=== PATIENT | female | born 1990 | race Caucasian/White ===

== ENCOUNTER 2023-09-07 21:10 | Emergency (ER) | payer MEDICAID, SELFPAY ==
[2023-09-07 21:13] VITALS: BP 168/80; PULSE 72; RESP 16; TEMP 36.6; O2SAT 99; BMI 35.5
--- NOTE | 2023-09-07 21:52 | XR_ITS ---
The [address] [address] Patient Name: CINDA FRANCES MRN: [id number] date: 1990 Sex: F Assigned Patient Location: ER Current Patient Location: ER Accession/Order Number: [id number] Exam Date: 09/07/2023 22:03 Report Date: 09/07/2023 22:53 At the request of: DAGO GAO Procedure: XR hand RT min 3V EXAM: XR hand RT min 3V HISTORY: injury middle finger COMPARISON: None. TECHNIQUE: 3 views of the right hand were obtained. FINDINGS: No acute fracture or dislocation is seen. The joint spaces are preserved. No definite radiopaque foreign body is seen. XR/XR hand RT min 3V IMPRESSION: 1. No acute osseous abnormality or radiopaque foreign body about the right hand is seen. Electronically authenticated by: Lisa SUAREZ Date: 09/07/2023 22:53
--- NOTE | 2023-09-07 21:53 | ED_ITS ---
HPI - Extremity Injury (Upper) General Chief Complaint: Extremity Injury, Upper Stated Complaint: Upper Injury right hand Time Seen by Provider: 09/07/23 21:51 Source: patient Mode of arrival: walk-in Limitations: no limitations History of Present Illness HPI narrative: patient states she was trying to close a window that was frozen and closed it onto the tip of her right middle finger. Bleeding at home and has stop here. Has pain of the finger. Related Data Home Medications Medication Instructions Recorded Confirmed No Known Home Medications 09/07/23 09/07/23 Allergies Allergy/AdvReac Type Severity Reaction Status Date / Time doxycycline Allergy Severe Anaphylaxis Verified 09/07/23 21:17 Review of Systems ROS Status of ROS 10 or more systems reviewed and unremark able except as noted in history and below Exam Constitutional Vital Signs, click to edit/add: Last Vital Signs Temp 98 F 09/07/23 21:13 Pulse 72 09/07/23 21:13 Resp 16 09/07/23 21:13 BP 168/80 H 09/07/23 21:13 Pulse Ox 99 09/07/23 21:13 O2 Del Method Room Air 09/07/23 21:13 Common normals: no apparent distress, average body habitus, oriented x3, no limitations, healthy appearing, alert and well nourished Eye Common normals: EOMs intact bilaterally and conjunctivae normal Respiratory Common normals: normal respiratory effort, no retractions and no use of accessory muscles Extremity Other: tip of right middle finger just anterior to the nail with small cut. no active bleeding. No obvious swelling or deformity. Nail intact Neuro Common normals: oriented x3, CN's II-XII intact bilaterally, moves all extremities, no focal motor deficits and no sensory deficits noted Psych Appearance: grossly normal Course Vital Signs Vital signs: Vital Signs Temperature 98 F 09/07/23 21:13 Pulse Rate 72 09/07/23 21:13 Respiratory Rate 16 09/07/23 21:13 Blood Pressure 168/80 H 09/07/23 21:13 Pulse Oximetry 99 09/07/23 21:13 Oxygen Delivery Method Room Air 09/07/23 21:13 Temperature 98 F 09/07/23 21:13 Pulse Rate 72 09/07/23 21:13 Respiratory Rate 16 09/07/23 21:13 Blood Pressure 168/80 H 09/07/23 21:13 Pulse Oximetry 99 09/07/23 21:13 Oxygen Delivery Method Room Air 09/07/23 21:13 MDM - Extremity Injury (Upper) MDM Narrative Medical decision making narrative: patient closed right tip of middle finger in window sustaining small cut at tip of the finger. Nail and nail bed intact. xray of the finger neg for fracture. finger dressed and patient discharged home Imaging Data Chest x-ray: Radiologist's impression: ITS Impressions Hand X-Ray 09/07/23 21:52 IMPRESSION: 1. No acute osseous abnormality or radiopaque foreign body about the right hand is seen. Electronically authenticated by: Lisa SUAREZ Date: 09/07/2023 22:53 Discharge Plan Discharge Chief Complaint: Extremity Injury, Upper Clinical Impression: Contusion of finger Patient Disposition: Home, Self-Care Prescriptions / Home Meds: No Action No Known Home Medications Instructions: Contusion in Adults (ED) Stand Alone Forms: Portal Instructions Referrals: Physician,Non-Staff, MD [Primary Care Provider] - 1 week
== END 2023-09-07 23:19 | disposition home or self-care (01) ==
PROVIDERS: Emergency Provider Internal Medicine
DX: S60.131A Contusion of right middle finger with damage to nail, initial encounter (principal); W23.0XXA Caught, crushed, jammed, or pinched between moving objects, initial encounter
CPT/HCPCS: 73130; 99283

== ENCOUNTER 2024-10-18 17:06 | Emergency (ER) | payer OTHER, SELFPAY ==
[2024-10-18 17:11] VITALS: BP 177/115; PULSE 78; TEMP 36.7; O2SAT 98; BMI 34.8
--- OUTSIDE RECORDS SUMMARY | 2024-10-18 17:30 | XMS_ITS | CCD ---
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 Name Role Phone Gurinder Cortes Primary Care Provider Zachery Rajesh DEGROOT Primary Care Provider LUZMA ALLEN Attending Unavailable ZACHERY, MUHAMID Primary Care Unavailable Jose Matute Unavailable DO Gurinder Cortes Primary Care Provider [phone] MD Jose Matute Attending Provider ANTHONY FOREMAN Referring Unavailable ZACHERY, MUHAMID Primary Care Unavailable ZACHERY, MUHAMID Primary Care Unavailable ANTHONY FOREMAN Admitting Unavailable ANTHONY FOREMAN Attending Unavailable NON STAFF Primary Care Unavailable Jose Matute Admitting Unavailable Jose Matute Attending Unavailable Jose Matute Attending Unavailable Gurinder Cortes Primary Care Unavailable Jose Matute Admitting Unavailable ANTHONY FOREMAN Referring Unavailable ZACHERY, MUHAMID Primary Care Unavailable ZACHERY, MUHAMID Primary Care Unavailable ANTHONY FOREMAN Referring Unavailable RASHAUNRHONDA Attending Unavailable ZACHERY, MUHAMID M Referring Unavailable ZACHERY, MUHAMID M Primary Care Unavailable RHONDA RODNEY Referring Unavailable ZACHERY, MUHAMID M Primary Care Unavailable ZACHERY, MUHAMID M Primary Care Unavailable ROGERS PIERCE Attending Unavailable ROGERS PIERCE Attending Unavailable ROGERS PIERCE Referring Unavailable ZACHERY, MUHAMID M Primary Care Unavailable RASHAUN, RHONDA Referring Unavailable ZACHERY, MUHAMID M Primary Care Unavailable RICHELLE MAYO Referring Unavailable ZACHERY, MUHAMID M Primary Care Unavailable ZACHERY, MUHAMID M Primary Care Unavailable VICKEY SINGLETON Attending Unavailable Zachery Rajesh SOUZA Primary Care Provider Allergies Allergy Classification Reported Allergen(s) Allergy Type Date of Onset Reaction(s) Facility (20 sources) Doxycycline; Translations: [DOXYCYCLINE] Drug Allergy 6 Anaphylaxis [place], [place] (17 sources) macadamia nut allergenic extract Drug Allergy 7 Shortness Of Breath [place], [place] (6 sources) Cashew nut Propensity to adverse reactions anaphylaxis [employer] Other (9 sources) cashew nut allergenic extract Drug Allergy 1 Anaphylaxis, Rash [facility] (3 sources) cashew nut allergenic extract; Translations: [CASHEW NUT] Drug Allergy 1 [facility] Repository (1 source) Doxycycline Drug Allergy 3 [facility] Repository (9 sources) tree nut, unspecified; Translations: [TREE NUTS] Propensity to adverse reactions to food (disorder) 3 Itching [facility] Repository NEGATED: Highlighted row has been ruled out! (2 sources) Other Propensity to adverse reactions 3 Itching, Other (See Comments) [facility] Work Phone: Medications Current Medications Medication Drug Class(es) Dates Sig (Normalized) Sig (Original) acetaminophen 500 mg oral tablet (8 sources) Start: 12-30-2022 take 1000 mg by mouth every six hours, then take 4000 mg by mouth every twenty-four hours 1,000 mg, Oral, EVERY 6 HOURS, First dose on [facility] 12/30/22 at 1800, Until Discontinued Maximum dose of acetaminophen is 4000 mg from all sources in 24 hours. Start: 12-30-2022 End: 01-29-2023 acetaminophen (TYLENOL) 500 MG tablet Take 2 tablets by mouth in the morning and 2 tablets at noon and 2 tablets in the evening. 180 tablet 2 12/30/2022 01/29/2023 Active Start: 12-30-2022 acetaminophen (TYLENOL) tablet 1,000 mg Start: 08-17-2021 End: 12-16-2022 take 1 tablet by mouth four times daily as needed for pain acetaminophen (TYLENOL) 500 MG tablet Take 1 tablet by mouth 4 times daily as needed for Pain 40 tablet 1 08/17/2021 12/16/2022 Discontinued (LIST CLEANUP) Start: 11-02-2019 1,000 mg, Oral , EVERY 6 HOURS PRN, Pain Mild (1-3), Pain Moderate (4-6), Fever, Fever >100.5 F (38 C), Starting 11/02/19 at 1250 Maximum dose of acetaminophen is 4000 mg from all sources in 24 hours. Please inform if temp >100.4 F (38.0 C). May alternate with Motrin for pain management. Start: 10-31-2019 End: 10-31-2019 acetaminophen (TYLENOL) tabl et 1,000 mg Acetaminophen / HYDROcodone (1 source) Opioid Agonist Start: 08-17-2021 End: 08-17-2021 HYDROcodone-acetaminophen (NORCO) 5-325 MG per tablet 1 tablet Acetaminophen / oxyCODONE (3 sources) Opioid Agonist Start: 09-26-2020 End: 09-26-2020 oxyCODONE-acetaminophen (PERCOCET) 5-325 MG per tablet 1 tablet Start: 11-02-2019 End: 11-07-2019 take 1 tablet by mouth every six hours as needed for pain, then take 1 tablet by mouth as needed for pain oxyCODONE-acetaminophen (PERCOCET) 5-325 MG per tablet Indications: S/P repeat low transverse Take 1 tablet by mouth every 6 hours as needed for Pain for up to 5 days. Intended supply: 5 days. Take lowest dose possible to manage pain 20 tablet 0 11/02/2019 11/07/2019 Active Start: 11-02-2019 oxyCODONE-acet aminophen (PERCOCET) 5-325 MG per tablet 1 tablet biotin 10 mg disintegrating oral tablet (1 source) take 3 tablets by mouth once daily Biotin 56132 MCG TBDP Take 3 tablets by mouth daily 0 Active bisacodyl 10 mg rectal suppository (1 source) Stimulant Laxative Start: 11-01-19 20 take 10 mg rectal route once daily as needed for constipation 10 mg, Rectal, DAILY PRN, Constipation, Starting [facility] 11/01/19 at 1850, calcium chloride 0.0014 meq/ml / potassium chloride 0.004 meq/ml / sodium chloride 0.103 meq/ml / sodium lactate 0.028 meq/ml injectable solution (5 sources) Start: 12-31-19 23 lactated ringers IV soln infusion Start: 08-17-2021 lactated ringe rs infusion Start: 09-26-2020 lactated ringe rs infusion Start: 11-01-2019 Intravenous, a t 25 mL/hr, CONTINUOUS, Starting [facility] 11/01/19 at 1915 Or until spontaneous void. Start: 11-01-2019 End: 11-01-2019 lactated ringers bolus 1 ml diphenhydrAMINE hydrochloride 50 mg/ml cartridge (4 sources) Histamine-1 Receptor Antagonist Start: 08-17-2021 End: 08-17-2021 diphenhydrAMINE (BENADRYL) injection 12.5 mg Start: 09-26-2020 End: 09-26-2020 diphenhydrAMINE (BENADRYL) i njection 12.5 mg Start: 10-31-2019 End: 11-01-2019 25 mg, Intravenous, EVERY 6 HOURS PRN, Itching, Hives, Starting [facility] 11/01/19 at 1850, docusate sodium 100 mg oral capsule (2 sources) Start: 11-01-2019 End: 12-02-2019 take 1 capsule by mouth twice daily as needed for constipation docusate sodium (COLACE) 100 MG capsule Take 1 capsule by mouth 2 times daily as needed for Constipation 60 capsule 1 11/02/2019 12/02/2019 Active DULoxetine 30 mg delayed release oral capsule (6 sources) Serotonin and Norepinephrine Reuptake Inhibitor Start: 12-07-2021 take 1 capsule by mouth every twenty-four hours Cymbalta 30 MG 1 capsule Orally Once a day for 30 day(s) Nov, Active estradiol 0.1 mg/ml vaginal cream (5 sources) Estrogen Start: 05-26-2020 estradiol (ESTRACE VAGINAL) 0.1 MG/GM vaginal cream Place 1 g vaginally Twice a Week 1 Tube 3 05/26/2020 Active Start: 05-26-2020 estradiol (EST RACE VAGINAL) 0.1 MG/GM vaginal cream Place 1 g vaginally Twice a Week 1 Tube 3 05/26/2020 Active Estrogens, Conjugated ([facility]) (3 sources) Estrogen ESTROGENS CONJUG ATED PO Take by mouth 0 Active 2 ml fentaNYL 0.05 mg/ml injection (2 sources) Opioid Agonist Start: 08-17-2021 fentaNYL (SUBLIMAZE) injection 50 mcg Start: 08-17-2021 fentaNYL (SUBL IMAZE) injection 25 mcg Folic Acid (7 sources) FOLIC ACID PO Ta ke by mouth 0 Active 1 ml hydrALAZINE hydrochloride 20 mg/ml injection (1 source) Arteriolar Vasodilator Start: 08-17-2021 hydrALAZINE (APRESOLINE) injection 5 mg 1 ml HYDROmorphone hydrochloride 1 mg/ml cartridge (4 sources) Opioid Agonist Start: 08-17-2021 HYDROmorphone (DILAUDID) injection 0.5 mg Start: 09-26-2020 HYDROmorphone (DILAUDID) injection 0.25 mg Start: 09-26-2020 HYDROmorphone (DILAUDID) injection 0.5 mg HYDROmorphone (DILAUDID) injection 0.5 mg (1 source) Start: 12-30-2022 HYDROmorphone (DILAUDID) injection 0.5 mg 1 ml ketorolac tromethamine 30 mg/ml cartridge (3 sources) Nonsteroidal Anti-inflammatory Drug, Cyclooxygenase Inhibitor Start: 12-30-2022 End: 12-31-2022 30 mg, IntraVENous, EVERY 6 HOURS, 3 doses, First dose on [facility] 12/30/22 at 1600, Last dose on Tue12/31/22 at 0400 Do not administer for more than 5 days. Start: 10-13-2022 End: 10-13-2022 ketorolac (TORADOL) injectio n 30 mg Start: 11-01-2019 End: 11-02-2019 30 mg, Intravenous, EVERY 6 HOURS, First dose on [facility] 11/01/19 at 1915, For 3 doses Do not administer for more than 5 days. Do not administer with motrin/ibuprofen. labetalol hydrochloride 5 mg/ml injectable solution (3 sources) beta-Adrenergic Shalom Start: 08-17-2021 labetalol (NORMODYNE;TRANDATE) injection 5 mg Start: 10-31-2019 labetalol (NOR MODYNE) tablet 100 mg labetalol (NORMODYNE;TRANDATE) injection syringe 5 mg (1 source) Start: 09-26-2020 labetalol (NORMODYNE;TRANDATE) injection syringe 5 mg lanolin 0.5 mg/mg topical ointment (1 source) Start: 11-01-2019 Topical, EVERY 1 HOUR PRN, Dry Skin, nipple discomfort, Starting [facility] 11/01/19 at 1850, levothyroxine sodium 0.075 mg oral tablet (3 sources) l-Thyroxine levothyroxine (SYNTHROID) 75 MCG tablet Take 75 mcg by mouth 0 Active lisinopril 10 mg oral tablet (10 sources) Angiotensin Converting Enzyme Inhibitor End: 12-16-2022 take 1 tablet by mouth every twenty-four hours Lisinopril 10 MG 1 tablet Orally Once a day for 90 days Active magnesium hydroxide 80 mg/ml oral suspension (1 source) Start: 11-01-2019 take 30 mL by mouth once daily as needed for constipation 30 mL, Oral, DAILY PRN, Constipation, Starting [facility] 11/01/19 at 1850, medroxyPROGESTERone acetate 10 mg oral tablet (3 sources) Progestin Start: 06-29-2021 take 1 tablet by mouth once daily medroxyPROGESTERone (PROVERA) 10 MG tablet Take 1 tablet by mouth daily 30 tablet 3 06/29/2021 Active meloxicam 15 mg oral tablet (3 sources) Nonsteroidal Anti-inflammat ory Drug take 1 tablet by mouth once daily meloxicam (MOBIC) 15 MG tablet Take 15 mg by mouth daily 0 Active 1 ml meperidine hydrochloride 25 mg/ml cartridge (2 sources) Opioid Agonist Start: 08-17-2021 meperidine (DEMEROL) injection 12.5 mg Start: 09-26-2020 meperidine (DE MEROL) injection 12.5 mg metFORMIN hydrochloride 500 mg oral tablet (8 sources) Biguanide take 1 tablet by mouth twice daily at mealtime metFORMIN (GLUCOPHAGE) 500 MG tablet Take 500 mg by mouth 2 times daily (with meals) 0 Active 2 ml metoclopramide 5 mg/ml prefilled syringe (3 sources) Dopamine-2 Receptor Antagonist Start: 08-17-20 21 End: 08-17-20 21 metoclopramide (REGLAN) injection 10 mg Start: 10-31-2019 End: 11-01-2019 metoclopramide (REGLAN) inje ction 10 mg 1 ml morphine sulfate 2 mg/ml cartridge (2 sources) Opioid Agonist Start: 08-17-2021 morphine (PF) injection 2 mg Start: 09-26-2020 morphine (PF) injection 2 mg 1 ml naloxone hydrochloride 0.4 mg/ml injection (1 source) Opioid Antagonist Start: 11-01-2019 0.4 mg, Intravenous, PRN, Opioid Reversal, Starting [facility] 11/01/19 at 1850, ondansetron 4 mg disintegrating oral tablet (9 sources) Serotonin-3 Receptor Antagonist Start: 09-29-2023 take 1 tablet by mouth every eight hours as needed for nausea and vomiting ondansetron ODT (ZOFRAN ODT) 4 mg disintegrating tablet Dissolve 1 tablet (4 mg total) on tongue every 8 (eight) hours as needed for nausea or vomiting. 20 tablet 0 09/29/2023 Active Start: 12-30-2022 End: 01-29-2023 take 1 tablet by mouth every eight hours as needed for nausea ondansetron (ZOFRAN-ODT) 4 MG disintegrating tablet Take 1 tablet by mouth every 8 hours as needed for Nausea or Vomiting 90 tablet 0 12/30/2022 01/29/2023 Active Start: 08-17-2021 End: 08-17-2021 ondansetron (ZOFRAN) injecti on 4 mg Start: 09-26-2020 End: 09-26-2020 ondansetron (ZOFRAN) injecti on 4 mg Start: 11-01-2019 4 mg, Intraven ous, EVERY 6 HOURS PRN, Nausea, Starting [facility] 11/01/19 at 1850, ondansetron (ZOFRAN-ODT) disintegrating tablet 4 mg (1 source) Start: 12-30-2022 ondansetron (ZOFRAN-ODT) disintegrating tablet 4 mg oxyCODONE hydrochloride 5 mg oral tablet (2 sources) Opioid Agonist Start: 12-30-2022 End: 01-06-2023 take 1 tablet by mouth every six hours as needed for pain oxyCODONE (ROXICODONE) 5 MG immediate release tablet Indications: Post-operative state Take 1 tablet by mouth every 6 hours as needed for Pain for up to 7 days. Intended supply: 7 days. Take lowest dose possible to manage pain Max Daily Amount: 20 mg 20 tablet 0 12/30/2022 01/06/2023 Active Start: 12-30-2022 oxyCODONE (QUINTON ICODONE) immediate release tablet 5 mg oxytocin (PITOCIN) 30 units in 500 mL infusion (1 source) Start: 11-01-2019 1 bernard-units/min (1 mL/hr), Intravenous, at 1 mL/hr, CONTINUOUS, Starting [facility] 11/01/19 at 1915 For Post Use Only Give 166ml (10 units) bolus, followed by 50ml/hr (3 units/hr). M ay stop if bleeding returns to normal. Give after delivery of placenta. pantoprazole 20 mg delayed release oral tablet (1 source) Proton Pump Inhibitor Start: 09-26-2020 take 1 tablet by mouth once daily pantoprazole (PROTONIX) 20 MG tablet Take 1 tablet by mouth daily 30 tablet 3 09/26/2020 Active Start: 09-26-2020 take 1 tablet by snehal th once daily pantoprazole (PROTONIX) 20 MG tablet Take 1 tablet by mouth daily 30 tablet 3 09/26/2020 Active polyethylene glycol 3350 42297 mg powder for oral solution (1 source) Osmotic Laxative Start: 11-01-2019 17 g, Oral, DAILY PRN, Constipation, Starting [facility] 11/01/19 at 1850, pregabalin 75 mg oral capsule (7 sources) take 1 capsule by mouth every twelve hours Lyrica 75 MG 1 capsule Orally Twice a day for 30 days Active Vit w/Wk-Gjgjvdzxk-BN (PNV PO) (7 sources) Vit w/Xn-Lyhfgnqrz-BQ (PNV PO) Take by mouth 0 Active vitamin plus iron 29-1 MG tablet 1 tablet (1 source) Start: 11-01-2019 take 1 tablet by mouth once daily 1 tablet, Oral, DAILY, First dose on [facility] 11/01/19 at 1915 Begin when normal bowel activity resumes. Progesterone (3 sources) Progesterone PROGESTERONE IM Inject into the muscle 0 Active progesterone (ENDOMETRIN) 100 MG suppository (3 sources) progesterone (ENDOMETRIN) 100 MG suppository Indications: until [address] 100 mg vaginally daily Indications: until 12 weeks 0 Active 1 ml promethazine hydrochloride 25 mg/ml injection (1 source) Phenothiazine Start: 09-26-2020 promethazine (PHENERGAN) injection 12.5 mg 72 hr scopolamine 0.0139 mg/hr transdermal system (3 sources) Anticholinergic Start: 12-30-2022 End: 01-02-2023 scopolamine (TRANSDERM-SCOP) transdermal patch 1 patch Start: 08-17-2021 End: 08-20-2021 scopolamine (TRANSDERM-SCOP) transdermal patch 1 patch Start: 11-01-2019 1 patch, Trans dermal, Administer over 72 Hours, EVERY 72 HOURS, First dose on [facility] 11/01/19 at 1915 1.5 mg patch delivers 1 mg over 3 days. Apply patch to hairless area behind the ear. sennosides, fdc 8.6 mg oral tablet (1 source) Start: 12-30-2022 End: 01-29-2023 take 1 tablet by mouth twice daily senna (SENOKOT) 8.6 MG tablet Take 1 tablet by mouth 2 times daily 60 tablet 3 12/30/2022 01/29/2023 Active sertraline 25 mg oral tablet (3 sources) Serotonin Reuptake Inhibitor Start: 02-08-2020 take 1 tablet by mouth once daily sertraline (ZOLOFT) 25 MG tablet TAKE ONE TABLET BY MOUTH DAILY 30 tablet 5 02/08/2020 Active Start: 11-02-2019 take 1 tablet by snehal th once daily sertraline (ZOLOFT) 25 MG tablet Take 1 tablet by mouth daily 30 tablet 1 11/02/2019 Active simethicone 80 mg chewable tablet (3 sources) Start: 12-30-2022 End: 01-29-2023 take 1 tablet by mouth four times daily as needed simethicone (MYLICON) 80 MG chewable tablet Take 1 tablet by mouth 4 times daily as needed for Flatulence 120 tablet 0 12/30/2022 01/29/2023 Active Start: 12-30-2022 take 80 mg by mouth every six hours as needed 80 mg, Oral, EVERY 6 HOURS PRN, Starting on [facility] 12/30/22 at 1240, Until Discontinued, Cramping Start: 11-01-2019 take 80 mg by mouth every six hours as needed 80 mg, Oral, EVERY 6 HOURS PRN, Cramping, Flatulence, Starting [facility] 11/01/19 at 1850, 5 ml sodium chloride 9 mg/ml injection (15 sources) Start: 12-30-2022 take 1 dose intravenously twice daily 5-40 mL, IntraVENous, EVERY 12 HOURS SCHEDULED (2 times per day), First dose on [facility] 12/30/22 at 2100, Until Discontinued For Line Patency: Peripheral IV = 5 mL; Midline or Central Line = 10 mL/lumen. If following IV push medication, administer flush at same rate as the IV push. Flush volume is determined by type of infusion therapy being given. For non-viscous solutions use: Peripheral IV = 5 mL Midline or Central Line = 10 mL/lumen For viscous solutions (i.e. blood components, parenteral nutrition, contrast media, or after obtaining blood sample) use: Peripheral IV = 10 mL Midline or Central Line = 20 mL/lumen Post-op Start: 12-30-2022 IntraVENous, a t 125 mL/hr, CONTINUOUS, Starting on [facility] 12/30/22 at 1300, Post-op Start: 12-30-2022 IntraVENous, a t 5-250 mL/hr, PRN, if patient receiving piggyback infusions and maintenance fluids are not ordered OR KVO fluids to protect IV site / prevent frequent line interruptions/ long duration, Starting on [facility] 12/30/22 at 1241 For piggyback infusion, administer at same rate as piggyback for a total of 25 mL. Enter 25 mL into dose field and piggyback rate into rate field of order. If piggyback is infusing at a rate less than 100 mL/hr, enter 25 mL into dose field and 100 mL/hr into rate field of order. For KVO fluids, enter rate of 20 mL/hr or less into rate field of order. Post-op Start: 12-30-2022 take 5-40 mL intrave nously once as needed 5-40 mL, IntraVENous, PRN, Starting on [facility] 12/30/22 at 1241, Until Discontinued, Line Care, After every IV line use For Line Patency: Peripheral IV = 5 mL; Midline or Central Line = 10 mL/lumen. If following IV push medication, administer flush at same rate as the IV push. Flush volume is determined by type of infusion therapy being given. For non-viscous solutions use: Peripheral IV = 5 mL Midline or Central Line = 10 mL/lumen For viscous solutions (i.e. blood components, parenteral nutrition, contrast media, or after obtaining blood sample) use: Peripheral IV = 10 mL Midline or Central Line = 20 mL/lumen Post-op Start: 08-17-2021 0.9 % sodium c hloride infusion Start: 08-17-2021 sodium chlorid e flush 0.9 % injection 5-40 mL Start: 09-26-2020 sodium chlorid e flush 0.9 % injection 10 mL Start: 09-26-2020 End: 09-26-2020 0.9 % sodium chloride bolus Start: 09-26-2020 0.9 % sodium c hloride infusion Start: 09-26-2020 sodium chlorid e flush 0.9 % injection 10 mL Start: 11-01-2019 take 10 mL intravenous route o nce 10 mL, Intravenous, PRN, Line Care, Starting [facility] 11/01/19 at 1850 After every IV line use Completed/Discontinued Medications Medication Drug Class(es) Dates Sig (Normalized) Sig (Original) acetaminophen 325 mg / butalbital 50 mg / caffeine 40 mg oral tablet (2 sources) Barbiturate, Central Nervous System Stimulant, Methylxanthine Start: 0 End: 0 butalbital-acetamino phen-caffeine (FIORICET, ESGIC) per tablet 2 tablet ARIPiprazole 5 mg oral tablet (2 sources) Atypical Antipsychotic Start: 3 End: 4 take 1 tablet by mouth in the morning ARIPiprazole (ABILIFY) 5 mg tablet Indications: Bipolar 2 disorder ([facility]) Take 1 tablet (5 mg total) by mouth in the morning. 30 tablet 0 04/12/2023 11/01/2023 Discontinued aspirin 81 mg oral tablet (4 sources) Platelet Aggregation Inhibitor, Nonsteroidal Anti-inflammatory Drug End: 0 take 1 tablet by mouth once daily aspirin 81 MG tablet Take 81 mg by mouth daily 0 11/02/2019 Discontinued (Stop Taking at Discharge) betamethasone 3 mg/ml / betamethasone acetate 3 mg/ml injectable suspension (1 source) Corticosteroid Start: 0 End: 0 betamethasone acetate-betamethason e sodium phosphate (CELESTONE) injection 12 mg ceFAZolin 1000 mg injection (1 source) Cephalosporin Antibacterial Start: 0 End: 0 1 g, Intravenous, EVERY 8 HOURS, 2 doses, First dose (after last reorder) on Tue11/02/19 at 0115, Last dose on Tue11/02/19 at 0915 Within 1hr prior to incision ceFAZolin (ANCEF) 2000 mg in 0.9% sodium chloride 50 mL IVPB (1 source) Start: 3 End: 3 2,000 mg, IntraVENous, ONCE, 1 dose, On [facility] 12/30/22 at 1600 Antimicrobial Indications: Surgical Prophylaxis ceFAZolin (ANCEF) 3 g in dextrose 5 % 100 mL IVPB (1 source) Start: 0 End: 0 ceFAZolin (ANCEF) 3 g in dextrose 5 % 100 mL IVPB citric acid 66.8 mg/ml / sodium citrate 100 mg/ml oral solution (1 source) Calculi Dissolution Agent, Anti-coagulant Start: 0 End: 0 citric acid-sodium citrate (BICITRA) solution 30 mL dextromethorphan hydrobromide 15 mg oral capsule (2 sources) Uncompetitive Y-xeqnak-W-aspartat e Receptor Antagonist, Sigma-1 Agonist Start: 2 End: 4 take 2 capsules by mouth at bedtime dextromethorphan HBr 15 mg capsule Indications: Acute cough Take 30 mg by mouth in the morning and at bedtime. 28 each 0 08/03/2022 11/01/2023 Discontinued docusate sodium 50 mg / sennosides, fdc 8.6 mg oral tablet (1 source) Start: 3 take 2 tablets by mouth once daily as needed 2 tablet, Oral, DAILY PRN, Starting on Tue12/30/22 at 1240, Until Discontinued, Constipation gabapentin 300 mg oral capsule (1 source) Anti-epileptic Agent Start: 3 End: 3 gabapentin (NEURONTIN) capsule 300 mg ibuprofen 600 mg oral tablet (5 sources) Nonsteroidal Anti-inflammatory Drug Start: 1 End: 3 take 1 tablet by mouth every six hours as needed for pain ibuprofen (ADVIL;MOTRIN) 600 MG tablet Take 1 tablet by mouth every 6 hours as needed for Pain 40 tablet 1 08/17/2021 12/16/2022 Discontinued (LIST CLEANUP) Start: 11-02-2019 take 1 tablet by snehal th every eight hours as needed for pain ibuprofen (ADVIL;MOTRIN) 800 MG tablet Take 1 tablet by mouth every 8 hours as needed for Pain 30 tablet 0 11/02/2019 Active iopamidol (ISOVUE-370) 76 % injection 75 mL (1 source) Start: 10-13-2022 End: 10-13-2022 iopamidol (ISOVUE-370) 76 % injection 75 mL 10 ml lidocaine hydrochloride 10 mg/ml injection (2 sources) Antiarrhythmic, Amide Local Anesthetic Start: 12-30-2022 End: 12-30-2022 lidocaine PF 1 % injection 1 mL Start: 08-17-2021 End: 08-17-2021 lidocaine PF 1 % injection 1 mL 500 ml magnesium sulfate 40 mg/ml injection (3 sources) Start: 11-01-2019 End: 11-02-2019 magnesium sulfate (20 G/500 mL) infusion Start: 11-01-2019 End: 11-01-2019 Magnesium Sulfate 4 GM/100ML SOLN Start: 11-01-2019 End: 11-01-2019 magnesium sulfate 20 GM/500M L (20 G/500 mL) infusion methyldopa 250 mg oral tablet (8 sources) Central alpha-2 Adrenergic Agonist Start: 10-31-2019 End: 11-01-2019 methyldopa (ALDOMET) tablet 500 mg Start: 10-09-2019 End: 11-02-2019 take 1 tablet by mouth twice daily methyldopa (ALDOMET) 250 MG tablet Indications: Chronic hypertension in TAKE ONE TABLET BY MOUTH TWICE A DAY 60 tablet 0 10/09/2019 11/02/2019 Discontinued (Stop Taking at Discharge) Start: 08-10-2019 End: 11-02-2019 take 1 tablet by mouth twice daily methyldopa (ALDOMET) 500 MG tablet Indications: Chronic hypertension in Take 1 tablet by mouth 2 times daily 60 tablet 1 08/10/2019 11/02/2019 Discontinued (Stop Taking at Discharge) Start: 05-10-2019 End: 06-09-2019 take 1 tablet by mouth twice daily methyldopa (ALDOMET) 250 MG tablet Indications: Chronic hypertension in Take 1 tablet by mouth 2 times daily 60 tablet 1 05/10/2019 06/09/2019 Active phenazopyridine hydrochlorid e 200 mg delayed release oral tablet (1 source) Start: 12-30-2022 End: 12-30-2022 phenazopyridine (PYRIDIUM) tablet 200 mg Problems Active Problems Problem Classification Problem Date Documented Date Episodic/Chronic Anxiety disorders (8 sources) Mixed anxiety and depressive disorder; Translations: [Other specified anxiety disorders] Onset: 12-07-2021 Resolved: 01-06-2022 Chronic Hypertension complicating ; childbirth and the puerperium (2 sources) 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; Translations: [Hypertension complicating , childbirth and the puerperium] Onset: 02-20-2018 03-13-2018 Chronic Menstrual disorders (19 sources) Dysmenorrhea; Translations: [Dysmenorrhea, unspecified] Onset: 04-17-2015 02-20-2018 Chronic Other connective tissue disease (6 sources) Muscle weakness; Translations: [Muscle weakness (generalized)] Episodic Other connective tissue disease (6 sources) Pain in limb; Translations: [Pain in arm, unspecified] Episodic Other disorders of stomach and duodenum (5 sources) Indigestion; Translations: [Functional dyspepsia] 10-12-2020 Episodic Other endocrine disorders (20 sources) Polycystic ovarian syndrome; Translations: [Polycystic ovary syndrome] Onset: 03-20-2015 Resolved: 02-20-2018 02-20-2018 Chronic Other female genital disorders (19 sources) Abnormal uterine bleeding; Translations: [Abnormal uterine and vaginal bleeding, unspecified] Onset: 02-13-2015 02-20-2018 Chronic Other female genital disorders (3 sources) Abnormal uterine and vaginal bleeding, unspecified; Translations: [Abnormal uterine and vaginal bleeding, unspecified] Onset: 12-15-2022 Chronic Other female genital disorders (1 source) Vaginal dryness; Translations: [Vaginal dryness] Episodic Other nervous system disorders (6 sources) Chronic pain; Translations: [Other chronic pain] Chronic Other nervous system disorders (2 sources) Other chronic pain Chronic Other nervous system disorders (1 source) Other chronic pain; Translations: [Other chronic pain] Onset: 12-28-2022 Chronic Other nervous system disorders (6 sources) Skin sensation disturbance; Translations: [Paresthesia of skin] Episodic Other nutritional; endocrine; and metabolic disorders (20 sources) Body mass index 40+ - severely obese; Translations: [Morbid (severe) obesity due to excess calories] Onset: 07-03-2020 07-03-2020 Chronic Other nutritional; endocrine; and metabolic disorders (2 sources) Morbid obesity; Translations: [Obesity, Class III, BMI 40-49.9 (morbid obesity)] Onset: 07-03-2020 07-03-2020 Chronic Other skin disorders (1 source) Loss of hair; Translations: [Hair loss] Episodic Residual codes; unclassified (2 sources) Obstructive sleep apnea (adult) (pediatric); Translations: [Obstructive sleep apnea (adult) (pediatric)] Onset: 11-01-2023 Chronic Residual codes; unclassified (1 source) Sleep apnea Onset: 11-01-2023 Chronic Residual codes; unclassified (2 sources) Obstructive sleep apnea syndrome; Translations: [Obstructive sleep apnea (adult) (pediatric)] 01-17-2024 Chronic Residual codes; unclassified (1 source) Gestation period, 9 weeks; Translations: [9 weeks gestation of ] Episodic Residual codes; unclassified (1 source) Gestation period, 24 weeks Episodic Residual codes; unclassified (1 source) Gestation period, 29 weeks Episodic Residual codes; unclassified (8 sources) Postoperative state; Translations: [Other specified postprocedural states] Onset: 11-02-2019 Resolved: 08-04-2020 08-04-2020 Episodic Residual codes; unclassified (7 sources) History of endometrial ablation; Translations: [Other specified postprocedural states] Onset: 08-17-2021 Episodic Residual codes; unclassified (1 source) Other specified postprocedural states; Translations: [Other specified postprocedural states] Onset: 12-30-2022 Episodic Spondylosis; intervertebral disc disorders; other back problems (17 sources) Degeneration of cervical intervertebral disc; Translations: [Other cervical disc degeneration, unspecified cervical region] Onset: 03-20-2021 Chronic Thyroid disorders (20 sources) Hypothyroidism; Translations: [Hypothyroidism, unspecified] Onset: 02-20-2018 03-13-2018 Chronic Unclassified (2 sources) Hx of gHTN (G1) Onset: 02-20-2018 08-25-2019 Unclassified (4 sources) PCOS (polycystic ovarian syndrome) Onset: 03-20-2015 Resolved: 02-20-2018 02-20-2018 Unclassified (2 sources) Patient encounter status; Translations: [Encounter for annual routine gynecological examination] Unclassified (1 source) New Patient Onset: 11-01-2023 Unclassified (1 source) Cold Like Symptoms Onset: 09-09-2024 Viral infection (1 source) Viral infection, unspecified; Translations: [Viral infection, unspecified] Onset: 09-09-2024 Episodic Past or Other Problems Problem Classification Problem Date Documented Da te Episodic/Chronic Abdominal pain (8 sources) Lower abdominal pain; Translations: [Lower abdominal pain, unspecified] Onset: 10-13-2022 Episodic Administrative/social admission (1 source) ; Translations: [Disruption of family by separation and divorce] 11-01-2023 Episodic Conditions associated with dizziness or vertigo (7 sources) Dizziness following neck extension; Translations: [Dizziness and giddiness] Onset: 03-20-2021 03-20-2021 Episodic Diabetes or abnormal glucose tolerance complicating ; childbirth; or the puerperium (18 sources) Abnormal glucose tolerance in mother complicating , childbirth AND/OR puerperium; Translations: [Other specified related conditions, unspecified trimester] Onset: 08-30-2017 Resolved: 08-04-2020 02-20-2018 Episodic Essential hypertension (18 sources) Hypertensive disorder; Translations: [Essential (primary) hypertension] Onset: 10-31-2019 Resolved: 08-04-2020 10-31-2019 Chronic Genitourinary symptoms and ill-defined conditions (18 sources) Decreased fertility; Translations: [Supervision of resulting from assisted reproductive technology, unspecified trimester] Onset: 08-30-2017 Resolved: 08-04-2020 04-25-2019 Episodic Hypertension complicating ; childbirth and the puerperium (14 sources) Hypertension AND/OR vomiting complicating childbirth AND/OR puerperium; Translations: [Severe pre-eclampsia] Onset: 02-20-2018 Resolved: 08-04-2020 03-13-2018 Episodic Mood disorders (7 sources) Mood disorders Onset: 07-27-2022 07-27-2022 Noninfectious gastroenteritis (1 source) Noninfective gastroenteritis and colitis, unspecified; Translations: [Noninfective gastroenteritis and colitis, unspecified] Onset: 12-18-2023 Episodic Other circulatory disease (20 sources) Elevated blood-pressure reading without diagnosis of hypertension; Translations: [Elevated blood-pressure reading, without diagnosis of hypertension] Onset: 08-25-2019 08-25-2019 Episodic Other complications of (17 sources) High risk ; Translations: [Supervision of high risk , unspecified, third trimester] Onset: 02-20-2018 Resolved: 03-09-2018 03-09-2018 Episodic Other complications of (5 sources) Finding of pattern of ; Translations: [Supervision of other high risk pregnancies, unspecified trimester] Onset: 08-25-2019 Resolved: 08-04-2020 08-04-2020 Episodic Other connective tissue disease (7 sources) Pain in right arm; Translations: [Pain in right arm] Onset: 03-20-2021 03-20-2021 Episodic Other female genital disorders (18 sources) Cervical intraepithelial neoplasia grade 1; Translations: [Mild cervical dysplasia] Onset: 06-30-2016 Resolved: 08-04-2020 04-25-2019 Episodic Other female genital disorders (20 sources) History of abnormal cervical Papanicolaou smear ; Translations: [Personal history of other diseases of the female genital tract] Onset: 08-25-2019 08-25-2019 Episodic Other gastrointestinal disorders (17 sources) Mass of uterine adnexa; Translations: [Other specified conditions associated with female genital organs and menstrual cycle] Onset: 02-13-2015 Resolved: 08-25-2019 03-13-2018 Episodic Other nutritional; endocrine; and metabolic disorders (6 sources) Insulin resistance; Translations: [Metabolic syndrome] Onset: 03-20-2015 Resolved: 02-20-2018 02-20-2018 Chronic Other nutritional; endocrine; and metabolic disorders (11 sources) Insulin resistance; Translations: [Insulin resistance] Onset: 03-20-2015 Resolved: 02-20-2018 02-20-2018 Other and delivery including normal (17 sources) Normal ; Translations: [Encounter for supervision of normal first , unspecified trimester] Onset: 08-30-2017 Resolved: 02-20-2018 02-20-2018 Episodic Residual codes; unclassified (17 sources) Gestation period, 37 weeks; Translations: [37 weeks gestation of ] Onset: 03-09-2018 Resolved: 08-04-2020 03-15-2018 Episodic Residual codes; unclassified (20 sources) H/O: section; Translations: [S/P section] Onset: 03-15-2018 Resolved: 08-04-2020 03-15-2018 Episodic Residual codes; unclassified (17 sources) Gestation period, 35 weeks; Translations: [35 weeks gestation of ] Onset: 02-27-2018 Resolved: 03-09-2018 03-09-2018 Episodic Residual codes; unclassified (13 sources) Personal history of other complications of , childbirth and the puerperium; Translations: [History of gestational hypertension] Onset: 02-20-2018 Resolved: 08-04-2020 10-31-2019 Episodic Residual codes; unclassified (12 sources) Gestation period, 33 weeks; Translations: [33 weeks gestation of ] Onset: 10-31-2019 Resolved: 08-04-2020 10-31-2019 Episodic Residual codes; unclassified (5 sources) Peripheral edema; Translations: [Edema, unspecified] Onset: 12-08-2020 12-08-2020 Episodic Residual codes; unclassified (5 sources) Gestation period, 34 weeks; Translations: [34 weeks gestation of ] Onset: 11-01-2019 Resolved: 08-04-2020 08-04-2020 Episodic Residual codes; unclassified (1 source) History of sleeve gastrectomy; Translations: [Acquired absence of stomach [part of]] 11-01-2023 Episodic Residual codes; unclassified (7 sources) Gestation period, 34 weeks; Translations: [34 weeks gestation of ] Onset: 11-01-2019 Resolved: 08-04-2020 11-01-2019 Residual codes; unclassified (7 sources) Postoperative state; Translations: [Postoperative state] Onset: 11-02-2019 Resolved: 08-04-2020 11-02-2019 Screening and history of mental health and substance abuse codes (15 sources) H/O: depression; Translations: [Personal history of other complications of , childbirth and the puerperium] Onset: 08-25-2019 Resolved: 08-04-2020 08-25-2019 Episodic Spondylosis; intervertebral disc disorders; other back problems (20 sources) Pain in thoracic spine; Translations: [Radiculopathy, thoracic region] Onset: 03-20-2021 Episodic Unclassified (10 sources) Finding of pattern of ; Translations: [Short interval between pregnancies affecting , antepartum] Onset: 08-25-2019 Resolved: 08-04-2020 08-25-2019 Unclassified (7 sources) Onset: 04-22-2021 04-22-2021 Results Test Name Value Interpretation Reference Range Facility XR CHEST 1 VWon 09-09-2024 XR CHEST 1 VW XR CHEST 1 VW XR CHEST 1 VW HISTORY: Cough, congestion COMPARISON: 08/05/2022 TECHNIQUE: Single AP upright view of the chest obtained. FINDINGS: Cardiomediastinal silhouette is within normal limits. No focal consolidation. No pleural effusion. No pneumothorax. IMPRESSION: No radiographic evidence of acute cardiopulmonary abnormality. Approved by Resident Shell Baeza DO on 09/09/2024 10:52 PM ICheko MD have personally reviewed the image(s) and agree with and/or edited the report Finalized by Cheko Parrish MD on 09/09/2024 10:54 PM Normal [facility] [place] CBC AND AUTO DIFFon 12-18-19 ABSOLUTE BASOPHIL 0.2 X10E9/L Normal 0.0-0.2 [facility] Comment on above: Performed By: #### C RADHA CMP, 3040-3 #### [facility] ([id number]) [address] [place] [address] 82096 ABSOLUTE NEUTROPHIL 8.2 X10E9/L High 1.5-6.6 [facility] Comment on above: Performed By: #### C RADHA CMP, 3040-3 #### [facility] ([id number]) [address] [place] [address] 30026 Basophils/100 WBC (Bld) 1.5 % Normal [facility] [place] Comment on above: Performed By: #### Iain GARCIA CMP, 03 #### [facility] ([id number]) [address] [place] [address] 90560 Eosinophils (Bld) [#/Vol] 0.1 10*3/uL Normal 0.0-0.4 [facility] [place] Comment on above: Performed By: #### Iain GARCIA CMP, 3 #### [facility] ([id number]) [address] [place] [address] 95714 Eosinophils/100 WBC (Bld) 0.5 % Normal [facility] [place] Comment on above: Performed By: #### Iain GARCIA CMP, 3039-10 #### [facility] ([id number]) [address] [place] [address] 93159 Erythrocyte distribution width (RBC) [Ratio] 13.2 % Normal 11.5-15.0 [facility] [place] Comment on above: Performed By: #### Iain GARCIA CMP, 3 #### [facility] ([id number]) [address] [place] [address] 86909 Hematocrit (Bld) [Volume fraction] 38.0 % Normal 35-47 [facility] [place] Comment on above: Performed By: #### Iain GARCIA CMP, 3 #### [facility] ([id number]) [address] [place] [address] 31657 Hemoglobin (Bld) [Mass/Vol] 12.9 g/dL Normal 11.7-15.5 [facility] [place] Comment on above: Performed By: #### Iain GARCIA CMP, 3 #### [facility] ([id number]) [address] [place] [address] 28399 Lymphocytes (Bld) [#/Vol] 3.6 10*3/uL High 1.0-3.5 [facility] [place] Comment on above: Performed By: #### Iain GARCIA CMP, 3039- #### [facility] ([id number]) [address] [place] [address] 04507 Lymphocytes/100 WBC (Bld) 27.4 % Normal [facility] [place] Comment on above: Performed By: #### Iain GARCIA CMP, 3039-3 #### [facility] ([id number]) [address] [place] [address] 90722 MCH (RBC) [Entitic mass] 29.1 pg Normal 27-34 [facility] [place] Comment on above: Performed By: #### Iain GARCIA CMP, 3039-10 #### [facility] ([id number]) [address] [place] [address] 21475 MCHC (RBC) [Mass/Vol] 34.1 g/dL Normal 32-36 [facility] Comment on above: Performed By: #### Iain GARCIA CMP, 3 #### [facility] ([id number]) [address] [place] [address] 10273 MCV (RBC) [Entitic vol] 85 fL Normal 80-100 [facility] [place] Comment on above: Performed By: #### Iain GARCIA CMP, 3039-10 #### [facility] ([id number]) [address] [place] [address] 61649 Monocytes (Bld) [#/Vol] 1.1 10*3/uL High 0-0.9 [facility] [place] Comment on above: Performed By: #### Iain GARCIA, CMP, 3039-3 #### [facility] ([id number]) [address] [place] [address] 02328 Monocytes/100 WBC (Bld) 8.5 % Normal [facility] [place] Comment on above: Performed By: #### Iain GARCIA CMP, 3039-3 #### [facility] ([id number]) [address] [place] [address] 32705 Neutrophils/100 WBC (Bld) 62.1 % Normal [facility] [place] Comment on above: Performed By: #### Iain GARCIA, CMP, 3040-3 #### [facility] ([id number]) [address] [place] [address] 40307 Platelet mean volume (Bld) [Entitic vol] 7.8 fL Normal 7-12 [facility] [place] Comment on above: Performed By: #### Iain GARCIA, CMP, 3039-3 #### [facility] ([id number]) [address] [place] [address] 55410 Platelets (Bld) [#/Vol] 281 10*3/uL Normal 150-450 [facility] [place] Comment on above: Performed By: #### Iain GARCIA, CMP, 3039-3 #### [facility] ([id number]) [address] [place] [address] 63778 RBC COUNT 4.45 X10E12/L Normal 3.80-5.20 [facility] [place] Comment on above: Performed By: #### Iain BCA, CMP, 3039-3 #### [facility] ([id number]) [address] [place] [address] 39368 WBC (Bld) [#/Vol] 13.1 10*3/uL High 4.0-11.0 [facility] Comment on above: Performed By: #### Iain BCA, CMP, 3039-3 #### [facility] ([id number]) [address] [place] [address] 09344 COMPREHENSIVE METABOLIC PANE Marquise 12-18-2023 Albumin [Mass/Vol] 4.3 g/dL Normal 3.2-5.3 [facility] Comment on above: Performed By: #### Iain BCA, CMP, 0-3 #### [facility] ([id number]) [address] [place] [address] 44651 ALP [Catalytic activity/Vol] 47 U/L Normal 39-130 [facility] [place] Comment on above: Performed By: #### C TRICE GARCIA, 0-3 #### [facility] ([id number]) [address] [place] [address] 48637 ALT [Catalytic activity/Vol] 16 U/L Normal 0-31 [facility] [place] Comment on above: Performed By: #### C RADHA CMP, 3039-3 #### [facility] ([id number]) [address] [place] [address] 67419 Anion gap [Moles/Vol] 11 mmol/L Normal 5-15 [facility] Comment on above: Performed By: #### C RADHA CMP, 3039-3 #### [facility] ([id number]) [address] [place] [address] 07945 AST [Catalytic activity/Vol] 20 U/L Normal 0-41 [facility] [place] Comment on above: Performed By: #### Iain GARCIA CMP, 3039-3 #### [facility] ([id number]) [address] [place] [address] 09296 Bilirubin [Mass/Vol] 0.3 mg/dL Normal 0.3-1.2 [facility] Comment on above: Performed By: #### C RADHA CMP, 3039-3 #### [facility] ([id number]) [address] [place] [address] 06798 Calcium [Mass/Vol] 8.9 mg/dL Normal 8.5-10.5 [facility] Comment on above: Performed By: #### C RADHA CMP, 3039-3 #### [facility] ([id number]) [address] [place] [address] 00991 Chloride [Moles/Vol] 103 mmol/L Normal 98-109 [facility] Comment on above: Performed By: #### C BCA, CMP, 0-3 #### [facility] ([id number]) [address] [place] [address] 60558 CO2 [Moles/Vol] 23 mmol/L Normal 22-32 [facility] [place] Comment on above: Performed By: #### C TRICE GARCIA, 3039-3 #### [facility] ([id number]) [address] [place] [address] 29827 Creatinine [Mass/Vol] 0.65 mg/dL Normal 0.40-1.00 [facility] Comment on above: Result Comment: METH OD TRACEABLE TO IDMS STANDARD Performed By: #### C TRICE GARCIA, 3 #### [facility] ([id number]) [address] [place] [address] 97516 eGFR (CKD-EPI) NON-RACE DEPENDENT >90 Normal >59 [facility] [place] Comment on above: Result Comment: Reported eGFR is based on the CKD-EPI 2020 equation that does not use a race coefficient. Performed By: #### C TRICE GARCIA, 3 #### [facility] ([id number]) [address] [place] [address] 79081 Glucose [Mass/Vol] 123 mg/dL High 65-99 [facility] Comment on above: Performed By: #### C TRICE GARCIA, 3 #### [facility] ([id number]) [address] [place] [address] 75982 Potassium [Moles/Vol] 3.2 mmol/L Low 3.5-5.0 [facility] Comment on above: Performed By: #### C RADHA CMP, 3039-3 #### [facility] ([id number]) [address] [place] [address] 04557 Protein [Mass/Vol] 7.4 g/dL Normal 6.0-8.0 [facility] Comment on above: Performed By: #### C RADHA CMP, 3040-3 #### [facility] ([id number]) [address] [place] [address] Sodium [Moles/Vol] 137 mmol/L Normal 134-146 [facility] Comment on above: Performed By: #### C BCA, CMP, 3040-3 #### [facility] ([id number]) [address] [place] [address] Urea nitrogen [Mass/Vol] 12 mg/dL Normal 5-23 [facility] [place] Comment on above: Performed By: #### C BCA, CMP, 3040-3 #### [facility] ([id number]) [address] [place] [address] CT ABDOMEN AND PELVIS W CONT on 12-18-2023 CT ABDOMEN AND PELVIS W CONT CT ABDOMEN AND PELVIS W CONT ABDOMEN AND PELVIS CT WITH CONTRAST HISTORY: Left lower quadrant pain COMPARISON: None TECHNIQUE: CT abdomen and pelvis was performed. Axial images were obtained following the uneventful administration of 100 cc Omnipaque 300 nonionic intravenous contrast. Coronal and sagittal reformatted images were obtained and reviewed. Automated exposure control was utilized. FINDINGS: Lung bases are clear. No pleural fluid collection. Visible heart is within normal limits. The liver, spleen, pancreas and adrenal glands are within normal limits. Normal gallbladder. No biliary ductal dilatation. Patent portal vein. Symmetric renal enhancement. No hydronephrosis or perinephric fluid collection. Bladder is incompletely distended. Uterus is absent. No adnexal mass. Postoperative change compatible with gastric sleeve. Bowel demonstrates no obstruction or acute inflammatory change. Normal appendix. No free air or fluid. No mesenteric lymphadenopathy. Mesenteric vessels are patent. Normal caliber aorta. Right-sided IVC. Circumaortic left renal vein. No retroperitoneal or pelvic lymphadenopathy. No acute osseous abnormality. IMPRESSION: * No acute pathologic process. All CT scans at this facility use dose modulation, iterative reconstruction, and/or weight based dosing when appropriate to reduce radiation dose to as low as reasonably achievable. Finalized by Robert Arreguin MD on 12/18/2023 11:55 PM Normal [facility] [place] LIPASEon 12-18-2023 Lipase [Catalytic activity/Vol] 52 U/L High 17-40 [facility] [place] Comment on above: Performed By: #### C BCA, CMP, 3040-3 #### [facility] ([id number]) [address] [place] [address] 10305 URN MACROSCOPIC NURon 2023 BILIRUBIN ALYSE Negative Normal NEG [facility] [place] Comment on above: Performed By: #### N UM #### [facility] ([id number]) [address] [place] [address] [place] [address] BLOOD/HGB ALYSE Negative Normal NEG [facility] [place] Comment on above: Performed By: #### N UM #### [facility] ([id number]) [address] [place] [address] [place] [address] GLUCOSE ALYSE Negative Normal NEG [facility] [place] Comment on above: Performed By: #### N UM #### [facility] ([id number]) [address] [place] [address] [place] [address] KETONES ALYSE Trace Abnormal NEG [facility] [place] Comment on above: Performed By: #### N UM #### [facility] ([id number]) [address] [place] [address] [place] [address] LEUKOCYTE ESTERASE ALYSE Negative Normal NEG [facility] [place] Comment on above: Performed By: #### N UM #### [facility] ([id number]) [address] [place] [address] [place] [address] NITRITE ALYSE Negative Normal NEG [facility] [place] Comment on above: Performed By: #### N UM #### [facility] ([id number]) [address] [place] [address] [place] [address] PH ALYSE 5.5 Normal 5.0-8.5 [facility] [place] Comment on above: Performed By: #### N UM #### [facility] ([id number]) [address] [place] [address], [place] [address] PROTEIN ALYSE Negative Normal NEG [facility] [place] Comment on above: Performed By: #### N UM #### [facility] ([id number]) [address] [place] [address] SPECIFIC GRAVITY ALYSE >=1.030 Normal 1.003-1.035 [facility] Comment on above: Performed By: #### N UM #### [facility] ([id number]) [address] [place] [address] UROBILINOGEN ALYSE 1.0 eu/dL Normal <1.1 [facility] Comment on above: Performed By: #### N UM #### [facility] ([id number]) [address] [place] [address] 69539 POCT HCG, Prenancy, Uron Beta HCG ( test) Ql (U) Negative NEGATIVE [facility] Comment on above: HCG screen is sensitive to 25 mIU/mL. However this test may flower buncher or picker lower levels of HCG. If further evaluation is needed please request quantitative HCG. [facility] Surgical Pathologyon 023 Surgical Pathology (NOTE) Path Number: [id number] -- Diagnosis -- A. RIGHT PERITONEUM, PELVIC SIDEWALL, BIOPSY: - ENDOMETRIOSIS. B. CERVIX AND UTERUS, HYSTERECTOMY: CERVIX: - FOCAL CHRONIC CERVICITIS. UTERUS: - BENIGN SECRETORY ENDOMETRIUM. - FEW SEROSAL FIBROUS ADHESIONS. C. BILATERAL FALLOPIAN TUBES AND LEFT OVARY, BILATERAL SALPINGECTOMY WITH LEFT OOPHORECTOMY: RIGHT FALLOPIAN TUBE: - BENIGN PARATUBAL SIMPLE CYST. LEFT FALLOPIAN TUBE: - BENIGN SEROUS CYSTADENOMA (3 CM). LEFT OVARY: - HEMORRHAGIC CORPUS LUTEUM CYST. - SMALL FOLLICLE CYSTS. Adam Roblero, Electronically Signed Out /12/31/2022 Clinical Information Pre-op Diagnosis: PELVIC PAIN IN FEMALE, S/P ENDOMETRIAL ABLATION, ABNORMAL UTERINE BLEEDING Operative Findings: RIGHT PERITONEUM PELVIC SIDEWALL BIOPSY; UTERUS AND CERVIX; LEFT OVARY AND BILATERAL FALLOPIAN TUBES Operation Performed: ROBOTIC XI ASSISTED LAPAROSCOPIC HYSTERECTOMY W/BILATERAL SALPINGECTOMY, POSSIBLE LEFT OOPHORECTOMY, CYSTOSCOPY tm Source of Specimen A: RIGHT PERITONEUM PELVIC SIDE WALL BIOPSY B: UTERUS AND CERVIX C: LEFT OVARY AND BILATERAL FALLOPIAN TUBES Gross Description A. LILIANA MALONEY RIGHT PERITONEUM PELVIC SIDEWALL BIOPSY Received in formalin is a 0.5 x 0.4 x 0.2 cm portion of yellow lobulated and slightly cauterized appearing tissue. Totally embedded 1c. B. LILIANA MALONEY, UTERUS AND CERVIX Received in formalin is a 103.5 gram uterus and cervix (9.7 cm cervix-fundus x 4.5 cm cornu-cornu x 4.5 cm anterior-posterior). The uterine serosa is stone-pink and predominantly smooth with thin fibrous adhesions along the presumed anterior surface (presumed anterior = blue and presumed posterior = black). There is 3.3 x 2.8 cm stone-pink, focally hyperemic and smooth ectocervix that surrounds a 1.4 cm slit-like os. The specimen is bivalved to reveal a slightly scarred and distorted appearing 3.0 x 2.0 cm endometrial cavity. The cavity is lined by a stone-pink, hyperemic mucosa that is up to 0.2 cm in thickness. The myometrium is stone-pink, rubbery, trabeculated and is 2.0 cm in thickness. The cervix is lined by a stone, finely corrugated mucosa. Sectioning of the cervix reveals stone, rubbery cut surfaces. Die Repairer Stamping sections are submitted in 5c as follows: 1 anterior cervix 2 posterior cervix 3 anterior endomyometrium 4 posterior endomyometrium 5 focally cystic and trabeculated myometrium. C. LILIANA MALONEY, LEFT OVARY AND BILATERAL FALLOPIAN TUBES Received in formalin is a 5.6 cm in length x 0.7 cm in diameter fimbriated fallopian tube. The serosa is stone-pink with a 1.5 cm pedunculated paratubal cyst. Sectioning of the fallopian tube reveals unremarkable appearing cut surfaces. Also received within the specimen container is a 7.0 cm in length x 0.7 cm in diameter fimbriated fallopian tube with an attached 5.8 x 3.1 x 2.5 cm ovary. The fallopian tube serosa is pink-purple with a 3 cm paratubal cyst. This paratubal cyst contains brown oily material. The cyst wall averages 0.1 cm in thickness. Few internal nodular excrescences are identified, ranging from < 0.1 to 0.3 cm. The external surface is stone and lobulated with a 1.4 cm white, firm cortical nodule. Sectioning of the ovary reveals stone-pink, lobulated, solid and cystic cut surfaces. Sectioning of the cortical nodule reveals stone, fibrotic to focally cystic cut surfaces. A corpus luteum is identified. 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 tm Microscopic Description A-C. Microscopic examination performed. Processing Lab: [address] [id number] Interpretation Performed at [address] [id number] SURGICAL PATHOLOGY CONSULTATION Patient Name: LILIANA MALNOEY [facility] Rec: [id number] [facility] ANATOMIC PATHOLOGY [address] [place] [id number] Normal [facility] Comment on above: Performed By: #### P PPVS #### [place] [id number] Supply Chain Director: Flex Tinsley MD HCG,Urineon 12-28-2022 Beta HCG ( test) Ql (U) Negative Normal [facility] Comment on above: Result Comment: PERF ORMED BY: [place] [address] PATHOLOGIST ACID CONCENTRATOR PASTORA MORTENSEN M.D. Performed By: #### U HCG #### [address] HPV DNA High Riskon 12-19-19 23 HPV Interp [facility] Comment on above: Result Comment: This test amplifies and detects DNA of 14 high-risk HPV types associated with cervical cancer and its precursor lesions (HPV types 16,18, 31, 33, 35, 39, 45, 51, 52, 56, 58, 59, 66, and 68). Sensitivity may be affected by specimen collection methods, stage of infection, and the presence of interfering substances. Results should be interpreted in conjunction with other available laboratory and clinical data. A negative high-risk HPV result does not exclude the possibility of future cytologic HSIL or underlying CIN2-3 or cancer. This test is intended for medical purposes only and is not valid for the evaluation of suspected sexual abuse or for other forensic purposes. Performed By: #### H PVH #### [employer] [address] [place] [address] Supply Chain Director: Flex Tinsley MD HPV Type 16 Not detected Normal [facility] Comment on above: Performed By: #### H PVH #### [facility] [employer] [address] [place] [address] Supply Chain Director: Felx Tinsley MD HPV Type 18 Not detected Normal [facility] Comment on above: Performed By: #### H PVH #### [facility] [employer] [address] [place] [address] Supply Chain Director: Flex Tinsley MD Other High Risk HPV Not detected Normal [facility] Comment on above: Performed By: #### H PVH #### [facility] [employer] [address] [place] [address] Supply Chain Director: Flex Tinsley MD EKG 12 LeadOrdered By: Marc Coronel on 12-17-2022 Atrial Rate 57 BPM [employer] Phone: P [place] 53 degrees [employer] Phone: P-R Interval 176 ms [employer] Phone: Q-T Interval 464 ms [employer] Phone: QRS Duration 94 ms [employer] Phone: QTc Calculation (Bazett) 451 ms [employer] Phone: R [place] 15 degrees [employer] Phone: T [place] 19 degrees EDWARD TANG [employer] Work Phone: Ventricular Rate 57 BPM EDWARD KENNY [employer] Work Phone: EDWARD TANG [employer] Work Phone: EKG 12 Leadon 12-17-2022 Sinus bradycardia with sinus arrhythmia Otherwise normal ECG No previous ECGs available [facility] Marc Yap MD - 12/17/2022 Sinus bradycardia with sinus arrhythmia Otherwise normal ECG No previous ECGs available [facility] [employer] Work Phone: Hemoglobin A1Con 12-17-2022 Glucose [Mass/Vol] 94 mg/dL Normal [facility] Comment on above: Result Comment: The ADA and AACC recommend providing the estimated average glucose result to permit better patient understanding of their HBA1c result. Performed By: #### G LYHGB #### [employer] [address] [place] [address] [phone] Supply Chain Director: Flex Tinsley MD HbA1c (Bld) [Mass fraction] 4.9 % Normal 4.0-6.0 [facility] Comment on above: Performed By: #### G LYHGB #### [employer] [address] [place] [address] [phone] Supply Chain Director: Flex Tinsley MD Average glucose Estimated from glycated hemoglobin (Bld) [Mass/Vol] 94 mg/dL [facility] [place] Comment on above: The ADA and AACC rec ommend providing the estimated average glucose result to permit better patient understanding of their HBA1c result. HbA1c (Bld) [Mass fraction] 4.9 % 4.0 - 6.0 % [facility] [employer] [facility] AP[facility] 12-16-2022 aPTT Coag (Bld) [Time] 30.9 s Normal 24.0-36.0 [facility] Comment on above: Result Comment: IV Heparin Therapy Range: 62.0-94.0 Performed By: #### C DP, PT, PTT, CP, TSHX #### [facility] [address] [place] [address] Supply Chain Director: Baljit Flood DO aPTT Coag (Bld) [Time] 30.9 s [facility] Comment on above: IV Heparin Therapy Range: 62.0-94.0 [facility] CBC with Auto Differentialon 12-16-2022 Absolute Eos # 0.10 [place] [facility] Absolute Lymph # 2.20 [facility] SECO URS [facility] Absolute [place] # 0.70 [facility] Basophils (Bld) [#/Vol] 0.00 10*3/uL [facility] Basophils/100 WBC (Bld) 1 % 0 - 2 % [facility] Eosinophils/100 WBC (Bld) 1 % 0 - 4 % [facility] Hematocrit (Bld) [Volume fraction] 37.6 % 36 - 46 % [facility] Hemoglobin (Bld) [Mass/Vol] 12.6 g/dL 12.0 - 16.0 g/dL [facility] Interpretation and review of laboratory results Abnormal [facility] Lymphocytes/100 WBC (Bld) 28 % 24 - 44 % [facility] MCH (RBC) [Entitic mass] 28.6 pg 26 - 34 pg [facility] MCHC (RBC) [Mass/Vol] 33.5 g/dL 31 - 37 g/dL B ON [facility] MCV (RBC) [Entitic vol] 85.5 fL 80 - 100 fL [facility] Monocytes/100 WBC (Bld) 9 % High 1 - 7 % [facility] Platelet distribution width (Bld) [Ratio] 13.4 % 11.5 - 14.9 % [facility] Platelet mean volume (Bld) [Entitic vol] 8.6 fL 6.0 - 12.0 fL [facility] Platelets (Bld) [#/Vol] 251 10*3/uL [facility] RBC (Bld) [#/Vol] 4.40 10*6/uL 4.0 - 5.2 m/uL [facility] Segmented neutrophils/100 WBC (Bld) 61 % 36 - 66 % [facility] Segs Absolute 4.80 [facility] WBC (Bld) [#/Vol] 7.7 10*3/uL [facility] CBC with Diffon 12-16-2022 Abs. Basophil 0.00 k/uL Normal 0.0-0.2 [facility] Comment on above: Performed By: #### C DP, PT, PTT, CP, TSHX #### [facility] [address] [place] [address] Supply Chain Director: Baljit Flood DO Abs.Neutrophil (Seg) 4.80 k/uL Normal 1.3-9.1 [facility] Comment on above: Performed By: #### C DP, PT, PTT, CP, TSHX #### [facility] [address] [place] [address] Supply Chain Director: Baljit Flood DO Basophils/100 WBC (Bld) 1 % Normal 0-2 [facility] Comment on above: Performed By: #### C DP, PT, PTT, CP, TSHX #### [facility] [address] [place] [address] Supply Chain Director: Baljit Flood DO Eosinophils (Bld) [#/Vol] 0.10 10*3/uL Normal 0.0-0.4 [facility] Comment on above: Performed By: #### C DP, PT, PTT, CP, TSHX #### [facility] [address] [place] [address] Supply Chain Director: Baljit Flood DO Eosinophils/100 WBC (Bld) 1 % Normal 0-4 [facility] Comment on above: Performed By: #### C DP, PT, PTT, CP, TSHX #### [facility] [address] [place] [address] Supply Chain Director: Baljit Flood DO Erythrocyte distribution width (RBC) [Ratio] 13.4 % Normal 11.5-14.9 [facility] Comment on above: Performed By: #### C DP, PT, PTT, CP, TSHX #### [facility] [address] [place] [address] Supply Chain Director: Baljit Flood DO Hematocrit (Bld) [Volume fraction] 37.6 % Normal 36-46 [facility] Comment on above: Performed By: #### C DP, PT, PTT, CP, TSHX #### [facility] [place] [address] Supply Chain Director: Baljit Flood DO Hemoglobin (Bld) [Mass/Vol] 12.6 g/dL Normal 12.0-16.0 [facility] Comment on above: Performed By: #### C DP, PT, PTT, CP, TSHX #### [facility] [place] [address] Supply Chain Director: Baljit Flood DO Lymphocytes (Bld) [#/Vol] 2.20 10*3/uL Normal 1.0-4.8 [facility] Comment on above: Performed By: #### C DP, PT, PTT, CP, TSHX #### [facility] [address] [place] [address] Supply Chain Director: Baljit Flood DO Lymphocytes/100 WBC (Bld) 28 % Normal 24-44 [facility] Comment on above: Performed By: #### C DP, PT, PTT, CP, TSHX #### [facility] [address] Supply Chain Director: Baljit Flood DO MCH (RBC) [Entitic mass] 28.6 pg Normal 26-34 [facility] Comment on above: Performed By: #### C DP, PT, PTT, CP, TSHX #### [facility] [address] [place] [address] Supply Chain Director: Baljit Flood DO MCHC (RBC) [Mass/Vol] 33.5 g/dL Normal 31-37 [facility] Comment on above: Performed By: #### C DP, PT, PTT, CP, TSHX #### [facility] [place] [address] Supply Chain Director: Baljit Flood DO MCV (RBC) [Entitic vol] 85.5 fL Normal 80-100 [facility] Comment on above: Performed By: #### C DP, PT, PTT, CP, TSHX #### [facility] [place] [address] Supply Chain Director: Baljit Flood DO Monocytes (Bld) [#/Vol] 0.70 10*3/uL Normal 0.1-1.3 [facility] Comment on above: Performed By: #### C DP, PT, PTT, CP, TSHX #### [facility] [place] [address] Supply Chain Director: Baljit Flood DO Monocytes/100 WBC (Bld) 9 % High 1-7 [facility] Comment on above: Performed By: #### C DP, PT, PTT, CP, TSHX #### [facility] [place] [address] Supply Chain Director: Baljit Flood DO Neutrophil (Seg) 61 % Normal 36-66 [facility] Comment on above: Performed By: #### C DP, PT, PTT, CP, TSHX #### [facility] [address] [place] [address] Supply Chain Director: Baljit Flood DO Platelet mean volume (Bld) [Entitic vol] 8.6 fL Normal 6.0-12.0 [facility] Comment on above: Performed By: #### C DP, PT, PTT, CP, TSHX #### [facility] [address] [place] [address] Supply Chain Director: Baljit Flood DO Platelets (Bld) [#/Vol] 251 10*3/uL Normal 150-450 [facility] Comment on above: Performed By: #### C DP, PT, PTT, CP, TSHX #### [facility] [address] [place] [address] Supply Chain Director: Baljit Flood DO RBC (Bld) [#/Vol] 4.40 10*6/uL Normal 4.0-5.2 [facility] Comment on above: Performed By: #### C DP, PT, PTT, CP, TSHX #### [facility] [address] [place] [address] Supply Chain Director: Baljit Flood DO WBC (Bld) [#/Vol] 7.7 10*3/uL Normal 3.5-11.0 [facility] Comment on above: Performed By: #### C DP, PT, PTT, CP, TSHX #### [facility] [place] [address] Supply Chain Director: Baljit Flood DO Comp Metabolic Profon 2022 Albumin [Mass/Vol] 4.5 g/dL Normal 3.5-5.2 [facility] Comment on above: Performed By: #### C DP, PT, PTT, CP, TSHX #### [facility] [address] [place] [address] Supply Chain Director: Baljit Flood DO Alkaline Phos 55 U/L Normal 35-104 [facility] Comment on above: Performed By: #### C DP, PT, PTT, CP, TSHX #### [facility] [address] [place] [address] Supply Chain Director: Baljit Flood DO ALT [Catalytic activity/Vol] 13 U/L Normal 5-33 [facility] Comment on above: Performed By: #### C DP, PT, PTT, CP, TSHX #### [facility] [address] [place] [address] Supply Chain Director: Baljit Flood DO Anion gap [Moles/Vol] 12 mmol/L Normal 9-17 [facility] Comment on above: Performed By: #### C DP, PT, PTT, CP, TSHX #### [facility] [place] [address] Supply Chain Director: Baljit Flood DO AST [Catalytic activity/Vol] 17 U/L Normal <32 [facility] Comment on above: Performed By: #### C DP, PT, PTT, CP, TSHX #### [facility] [place] [address] Supply Chain Director: Baljit Flood DO Bilirubin [Mass/Vol] 0.3 mg/dL Normal 0.3-1.2 [facility] Comment on above: Performed By: #### C DP, PT, PTT, CP, TSHX #### [facility] [place] [address] Supply Chain Director: Baljit Flood DO Calcium [Mass/Vol] 9.2 mg/dL Normal 8.6-10.4 [facility] Comment on above: Performed By: #### C DP, PT, PTT, CP, TSHX #### [facility] [place] [address] Supply Chain Director: Baljit Flood DO Chloride [Moles/Vol] 103 mmol/L Normal 98-107 [facility] Comment on above: Performed By: #### C DP, PT, PTT, CP, TSHX #### [facility] [address] [facility] [place] [address] Supply Chain Director: Baljit Flood DO CO2 [Moles/Vol] 27 mmol/L Normal 20-31 [facility] Comment on above: Performed By: #### C DP, PT, PTT, CP, TSHX #### [facility] [address] [facility] [place] [address] Supply Chain Director: Baljit Flood DO Creatinine [Mass/Vol] 0.48 mg/dL Low 0.50-0.90 [facility] Comment on above: Performed By: #### C DP, PT, PTT, CP, TSHX #### [facility] [address] [place] [address] Supply Chain Director: Baljit Flood DO GFR/1.73 sq M.predicted among non-blacks MDRD (S/P/Bld) [Vol rate/Area] mL/min/{1.73_m2} Normal >60 [facility] Comment on above: Result Comment: These results are not intended for use in patients <18 years of age. eGFR results are calculated without a race factor using the 2020 CKD-EPI equation. Careful clinical correlation is recommended, particularly when comparing to results calculated using previous equations. The CKD-EPI equation is less accurate in patients with extremes of muscle mass, extra-renal metabolism of creatine, excessive creatine ingestion, or following therapy that affects renal tubular secretion. Performed By: #### C DP, PT, PTT, CP, TSHX #### [facility] [place] [address] Supply Chain Director: Baljit Flood DO Glucose [Mass/Vol] 87 mg/dL Normal 70-99 [facility] Comment on above: Performed By: #### C DP, PT, PTT, CP, TSHX #### [facility] [address] [facility] [place] [address] Supply Chain Director: Baljit Flood DO Potassium [Moles/Vol] 3.6 mmol/L Low 3.7-5.3 [facility] Comment on above: Performed By: #### C DP, PT, PTT, CP, TSHX #### [facility] [address] [place] [address] Supply Chain Director: Baljit Flood DO Protein [Mass/Vol] 7.3 g/dL Normal 6.4-8.3 [facility] Comment on above: Performed By: #### C DP, PT, PTT, CP, TSHX #### [facility] [address] [place] [address] Supply Chain Director: Baljit Flood DO Sodium [Moles/Vol] 142 mmol/L Normal 135-144 [facility] Comment on above: Performed By: #### C DP, PT, PTT, CP, TSHX #### [facility] [address] [place] [address] Supply Chain Director: Baljit Flood DO Urea nitrogen [Mass/Vol] 14 mg/dL Normal 6-20 [facility] Comment on above: Performed By: #### C DP, PT, PTT, CP, TSHX #### [facility] [place] [address] Supply Chain Director: Baljit Flood DO Comprehensive Metabolic Pane marquise 12-16-2022 Albumin [Mass/Vol] 4.5 g/dL 3.5 - 5.2 g/dL [facility] ALP [Catalytic activity/Vol] 55 U/L 35 - 104 U/L [facility] ALT [Catalytic activity/Vol] 13 U/L 5 - 33 U/L [facility] Anion gap [Moles/Vol] 12 mmol/L 9 - 17 mmol/L [facility] AST [Catalytic activity/Vol] 17 U/L NINF - 32 U/L [facility] Bilirubin [Mass/Vol] 0.3 mg/dL 0.3 - 1 .2 mg/dL [facility] Calcium [Mass/Vol] 9.2 mg/dL 8.6 - 10. 4 mg/dL [facility] Chloride [Moles/Vol] 103 mmol/L 98 - 10 7 mmol/L [facility] CO2 [Moles/Vol] 27 mmol/L 20 - 31 mmol/L [facility] Creatinine [Mass/Vol] 0.48 mg/dL Low 0.50 - 0.90 mg/dL [facility] GFR/1.73 sq M.predicted MDRD (S/P/Bld) [Vol rate/Area] - PINF [facility] Comment on above: These results are not intended for use in patients <18 years of age. eGFR results are calculated without a race factor using the 2020 CKD-EPI equation. Careful clinical correlation is recommended, particularly when comparing to results calculated using previous equations. The CKD-EPI equation is less accurate in patients with extremes of muscle mass, extra-renal metabolism of creatine, excessive creatine ingestion, or following therapy that affects renal tubular secretion. Glucose [Mass/Vol] 87 mg/dL 70 - 99 mg/dL [facility] Interpretation and review of laboratory results Abnormal [facility] Potassium [Moles/Vol] 3.6 mmol/L Low 3.7 - 5.3 mmol/L [facility] Protein [Mass/Vol] 7.3 g/dL 6.4 - 8.3 g/dL [facility] Sodium [Moles/Vol] 142 mmol/L 135 - 144 mmol/L [facility] Urea nitrogen [Mass/Vol] 14 mg/dL 6 - 20 mg/dL [facility] HPV DNA High Riskon 12-17-19 HPV Sample .THIN PREP Normal [facility] Comment on above: Performed By: #### H [facility] #### [facility] [employer] [facility] [place] [address] Supply Chain Director: Flex Tinsley MD Source CERVICAL MATERIAL Normal [facility] Comment on above: Performed By: #### H PV #### [facility] [address] [place] [address] Supply Chain Director: Flex Tinsley MD No Panel Informationon 12-16 [facility] PTon 12-16-2022 INR Coag (PPP) [Relative time] 1.0 {INR} Normal [facility] Comment on above: Result Comment: Therapeutic Range: Moderate Anticoagulant Intensity: INR = 2.0-3.0 High Anticoagulant Intensity: INR = 2.5-3.5 Performed By: #### C DP, PT, PTT, CP, TSHX #### [facility] [address] [place] [address] Supply Chain Director: Baljit Flood DO PT Coag (PPP) [Time] 13.4 s Normal 11.8-14.6 [facility] Comment on above: Performed By: #### C DP, PT, PTT, CP, TSHX #### [facility] [address] [place] [address] Supply Chain Director: Baljit Flood DO Protime-INRon 12-16-2022 INR Coag (PPP) [Relative time] 1.0 {INR} [facility] Comment on above: Therapeutic Range: Moderate Anticoagulant Intensity: INR = 2.0-3.0 High Anticoagulant Intensity: INR = 2.5-3.5 PT Coag (PPP) [Time] 13.4 s [facility] TSH With Reflex Ft4on 2022 TSH Qn 1.46 m[IU]/L [facility] TSH w/reflex to FT4on 2022 Thyroid Stim. Horm. 1.46 uIU/mL Normal 0.30-5.00 [facility] Comment on above: Performed By: #### C DP, PT, PTT, CP, TSHX #### [facility] [address] [place] [address] Supply Chain Director: Baljit Flood DO TYPE AND SCREENon 12-16-2022 ABO/Rh Positive [facility] Arm Band Number [id number] [facility] Expiration Date 01/02/2023,2359 [facility] Type + Screenon 12-16-2022 Type + Screen Sample Expiration 01/02/2023,2359 Arm Band Number [id number] ABO/Rh(D) A POSITIVE Antibody Screen NEGATIVE Normal [facility] Comment on above: Performed By: #### T YS #### [facility] [address] [place] [address] Supply Chain Director: Baljit Flood DO UA w/Reflex Cultureon 2022 Bilirubin, SemiQt,Ur Negative Normal NEG [facility] Comment on above: Performed By: #### U AX #### [facility] [address] [place] [address] Supply Chain Director: Baljit Flood DO Blood, Urine Negative Normal NEG [facility] Comment on above: Performed By: #### U AX #### [facility] [address] [place] [address] Supply Chain Director: Baljit Flood DO Clarity (U) Clear Normal CLEAR [facility] Comment on above: Performed By: #### U AX #### [facility] [address] [place] [address] Supply Chain Director: Baljit Flood DO Color (U) Yellow Normal YEL [facility] Comment on above: Performed By: #### U AX #### [facility] [address] [place] [address] Supply Chain Director: Baljit Flood DO Comment Microscopic exam not performed based on chemical results unless requested in Normal [facility] Comment on above: Result Comment: orig inal order. Performed By: #### U AX #### [facility] [address] [place] [address] Supply Chain Director: Baljit Flood DO Glucose Ql (U) Negative Normal NEG [facility] Comment on above: Performed By: #### U AX #### [facility] [address] [place] [address] Supply Chain Director: Baljit Flood DO Ketones Ql (U) TRACE Abnormal NEG [facility] Comment on above: Performed By: #### U AX #### [facility] [address] [place] [address] Supply Chain Director: Baljit Flood DO Leukocyte esterase Test strip Ql (U) Negative Normal NEG [facility] Comment on above: Performed By: #### U AX #### [facility] [address] [place] [address] Supply Chain Director: Baljit Flood DO Nitrite,Ur Negative Normal NEG [facility] Comment on above: Performed By: #### U AX #### [facility] [address] [place] [address] Supply Chain Director: Baljit Flood DO PH,Ur 5.5 Normal 5.0-8.0 [facility] Comment on above: Performed By: #### U AX #### [facility] [address] [place] [address] Supply Chain Director: Baljit Flood DO Protein Ql (U) Negative Normal NEG [facility] Comment on above: Performed By: #### U AX #### [facility] [address] [place] [address] Supply Chain Director: Baljit Flood DO Spec. [place],Ur 1.032 High 1.000-1.030 [facility] Comment on above: Performed By: #### U AX #### [facility] [address] [place] [address] [place] [address] Supply Chain Director: Baljit Flood DO Urobilinogen,Ur Normal Normal NORM [facility] Comment on above: Performed By: #### U AX #### [facility] [address] [place] [address] Supply Chain Director: Baljit Flood DO Urinalysis with Reflex to Cu ltureon 12-16-2022 Bilirubin Urine Negative NEGATIVE [facility] Color, UA Yellow Yellow [facility] Glucose Auto test strip (U) [Mass/Vol] Negative NEGATIVE [facility] Interpretation and review of laboratory results Abnormal [facility] Ketones (U) [Mass/Vol] TRACE Abnormal NEGATIVE [facility] Leukocyte esterase Auto test strip Ql (U) Negative NEGATIVE [facility] Nitrite Auto test strip Ql (U) Negative NEGATIVE [facility] Protein (U) [Mass/Vol] 5.5 mg/dL 5.0 - 8.0 [facility] Protein (U) [Mass/Vol] Negative NEGATIVE [facility] Specific [place], UA 1.032 High 1.000 - 1.030 B ON [facility] Turbidity UA Clear Clear [facility] Urinalysis Comments Microscopic exam not performed based on chemical results unless requested in original order. [facility] Urine Hgb Negative NEGATIVE [facility] Urobilinogen, Urine Normal Normal [facility] Cytologyon 12-15-2022 Cytology (NOTE) Path Number: [id number] DIAGNOSIS Cervical material, (ThinPrep vial, Imaging-assisted review): Specimen Adequacy: Satisfactory for evaluation. - Endocervical/transfor mation zone component present. Descriptive Diagnosis: Negative for intraepithelial lesion or malignancy. Shift in nicolette suggestive of bacterial vaginosis. Cytotech Screener: [id number] Electronically Signed Out Rolly Hui M.D. van/12/22/2022 Procedure/Addendum HPV Procedure Report Date Ordered: 12/16/2022 Status: Signed Out Date Complete: 12/18/2022 By: System Interface Date Reported: 12/18/2022 Sample: HPV Type 16 Result: Not Detected Ref Range: (Not Detected) Sample: HPV Type 18 Result: Not Detected Ref Range: (Not Detected) Sample: Other High Risk HPV Result: Not Detected Ref Range: (Not Detected) Sample: HPV Interp Result: Ref Range: (Not Detected) This test amplifies and detects DNA of 14 high-risk HPV types associated with cervical cancer and its precursor lesions (HPV types 16,18, 31, 33, 35, 39, 45, 51, 52, 56, 58, 59, 66, and 68). Sensitivity may be affected by specimen collection methods, stage of infection, and the presence of interfering substances. Results should be interpreted in conjunction with other available laboratory and clinical data. A negative high-risk HPV result does not exclude the possibility of future cytologic HSIL or underlying CIN2-3 or cancer. This test is intended for medical purposes only and is not valid for the evaluation of suspected sexual abuse or for other forensic purposes. Performed at [place] [id number] . Source of Specimen: A: Cervical material, (ThinPrep vial, Imaging-assisted review) HPV Reflex?.............. ........HPV Regardless Clinical History Abnormal bleeding: N93.9 Prior abnormal pap: CINI Prior abnormal pap: ASCUS HPV 2016 Co-Test: ThinPrep Pap with high risk HPV testing PCOS E28.2. Interpretation performed at [address] [id number] The Pap smear is a screening test primarily for squamous epithelial lesions, which is subject to both false negative and false positive results. Your patient should be reminded to consult you immediately if she experiences any suspicious signs or symptoms, regardless of her Pap smear result. GYNECOLOGIC CYTOLOGY REPORT Patient Name: LILIANA MALONEY Med Rec: [id number] [facility] [employer] [facility] ANATOMIC PATHOLOGY [address] [place] [address]. [place], [place] [address] Normal [facility] Comment on above: Performed By: #### P PPVP #### [address] [place] [address] Supply Chain Director: Flex Tinsley MD Surgical Pathologyon 023 Surgical Pathology (NOTE) -- Diagnosis -- Endometrium, biopsy: Weakly proliferative endometrium with ciliated cell changes admixed with mucus. Brodie Zaragoza. Electronically Signed Out 12/17/2022 Clinical Information Pre-op Diagnosis: PCOS, AUB Operative Findings: ENDOMETRIAL BX tm Source of Specimen A: ENDOMETRIAL BX Gross Description LILIANA MALONEY, DEVAUGHN Mucinous stone-brown fragments, 3.0 x 2.5 x 0.5 cm. Entirely 1cs. mm tm Microscopic Description 2 TAMIKA reviewed. Microscopic examination performed. SURGICAL PATHOLOGY CONSULTATION Patient Name: LILIAAN MALONEY. Med Rec: [id number] Path Number: [id number] [facility] [employer] [facility] ANATOMIC PATHOLOGY [address] [place] [phone] [facility] Comment on above: Performed By: #### P PPVS #### [employer] [address] [place] [address] [id number] Supply Chain Director: Flex Tinsley MD XR pre/post mri xrayon 11-18 XR pre/post mri xray [facility] [place] [address] MRI Report Signed Patient: Liliana Maloney MR#: [id number] : 1990 Acct:[id number] Age/Sex: 32 / F ADM Date: 11/18/22 Loc: [facility] Room: Type: [facility] Attending Dr: Jose Matute MD Copies to: Jose Matute MD Ordering Provider: Jose Matute MD Date of Service: 11/18/22 MR/MR thoracic spine wo con: Thoracic radiculopathy ([id number]) XR/XR pre/post mri xray: THORACIC MRI MR thoracic spine wo con, XR pre/post mri xray 11/18/2022 9:10 AM SIGNS AND SYMPTOMS: Chronic mid back pain with upper extremity radiculopathy bilaterally PROTOCOL: Multiplanar multisequence MR images of the thoracic spine were obtained without IV contrast. Frontal and lateral radiographs of the thoracic spine were obtained. COMPARISON: None. FINDINGS: Radiographs of the thoracic spine: The bones are in anatomic alignment. This preservation of vertebral body heights. There is mild anterior and lateral aspect formation at T11-T12 with mild intervertebral disc height loss. The intervertebral discs are otherwise preserved. No fracture or subluxation. Surgical clips are noted in the left upper quadrant. MRI thoracic spine: A marker is present at the level of the T2/T3 intervertebral disc posteriorly. The bones of the thoracic spine are in anatomic alignment. There is preservation of vertebral body heights. There is mild disc height loss at T11-T12. Benign-appearing hemangiomas are noted at T10 and T12. No epidural or paraspinous fluid collection is appreciated. The visualized paraspinous soft tissues are within normal limits. At T1-T2: There is a normal disc, central canal, and neural foramen. At T2-T3: There is a normal disc, central canal, and neural foramen. At T3-T4: There is a normal disc, central canal, and neural foramen. At T4-T5: There is a normal disc, central canal, and neural foramen. At T5-T6: There is a normal disc, central canal, and neural foramen. At T6-T7: There is a normal disc, central canal, and neural foramen. At T7-T8: There is a normal disc, central canal, and neural foramen. At T8-T9: There is a normal disc, central canal, and neural foramen. At T9-T10: There is a normal disc, central canal, and neural foramen. At T10-T11: There is a normal disc, central canal, and neural foramen. At T11-T12: There is a broad-based disc bulge with mild spinal canal narrowing. There is facet hypertrophy contributing this contributing to mild to moderate bilateral neural foraminal narrowing. At T12-L1: There is a normal disc, central canal, and neural foramen. MR/MR thoracic spine wo con IMPRESSION: No cord compression or cord signal abnormality. At T11-T12: There is a broad-based disc bulge with mild spinal canal narrowing. There is facet hypertrophy contributing this contributing to mild to moderate bilateral neural foraminal narrowing. No significant spinal canal or neural foraminal narrowing is noted otherwise. No fracture or subluxation. Impression dictated by: Brennen Cordon M.D.11/18/2022 1:11 PM Dictation Location: [place] [address] Transcribed By: [facility] 11/18/22 1311 Dictated By: Brennen Cordon II, MD 11/18/22 1259 Signed By: 11/18/22 1311 [facility] US NON OB TRANSVAGINALon US NON OB TRANSVAGINAL Exam Date: 10/14/2022 Dx: Left Lower Quadrant pelvic pain Uterus: 8.3x4.9x4.3cm, anteverted Endometrial Stripe: not able to visualize due to shadowing from scar Right Ovary: visualized and appears normal in size and shape Left Ovary: cystic area visualized adjacent to ovary measuring 3.0x2.6x1.1cm No free fluid in pelvis Interpreted by: Anthony Foreman DO Signed by: Anthony Foreman DO 10/14/22 Final result Normal [facility] US PELVIS COMPLETEon 023 US PELVIS COMPLETE Exam Date: 10/14/2022 Dx: Left Lower Quadrant pelvic pain Uterus: 8.3x4.9x4.3cm, anteverted Endometrial Stripe: not able to visualize due to shadowing from scar Right Ovary: visualized and appears normal in size and shape Left Ovary: cystic area visualized adjacent to ovary measuring 3.0x2.6x1.1cm No free fluid in pelvis Interpreted by: Anthony Foreman DO Signed by: Anthony Foreman DO 10/14/22 Final result Normal [facility] CBC with Auto Differentialon 10-13-2022 Absolute Eos # 0.04 [facility] [place] Absolute Immature Granulocyte 0.03 [facility] [place] Absolute Lymph # 2.56 [facility] Absolute [place] # 1.33 High [facility] Basophils (Bld) [#/Vol] 0.04 10*3/uL [facility] Basophils/100 WBC (Bld) 0 % 0 - 2 % [facility] Eosinophils/100 WBC (Bld) 0 % Low 1 - 4 % [facility] Hematocrit (Bld) [Volume fraction] 38.5 % 36.3 - 47.1 % [facility] Hemoglobin (Bld) [Mass/Vol] 13.0 g/dL 11.9 - 15.1 g/dL [facility] Immature granulocytes/100 WBC (Bld) 0 % 0 [facility] Interpretation and review of laboratory results Abnormal [facility] Lymphocytes/100 WBC (Bld) 18 % Low 24 - 43 % [facility] MCH (RBC) [Entitic mass] 30.1 pg 25.2 - 33.5 pg [facility] MCHC (RBC) [Mass/Vol] 33.8 g/dL 28.4 - 34.8 g/dL [facility] MCV (RBC) [Entitic vol] 89.1 fL 82.6 - 102.9 fL [facility] Monocytes/100 WBC (Bld) 10 % 3 - 12 % [facility] NRBC Automated 0.0 0.0 per 100 WBC [facility] Platelet distribution width (Bld) [Ratio] 12.7 % 11.8 - 14.4 % [facility] Platelet mean volume (Bld) [Entitic vol] 9.5 fL 8.1 - 13.5 fL [facility] Platelets (Bld) [#/Vol] 225 10*3/uL [facility] RBC (Bld) [#/Vol] 4.32 10*6/uL 3.95 - 5.1 1 m/uL [facility] Segmented neutrophils/100 WBC (Bld) 72 % High 36 - 65 % [facility] Segs Absolute 9.91 High [facility] WBC (Bld) [#/Vol] 13.9 10*3/uL High [facility] CBC with Diffon 10-13-2022 Abs. Basophil 0.04 k/uL Normal 0.00-0.[address] [facility] Comment on above: Performed By: #### C P, CDP #### [facility] [address] [place] [address] Supply Chain Director: Sang Glasgow MD Abs.Imm.Granulocyte 0.03 k/uL Normal 0.00-0.30 [facility] Comment on above: Performed By: #### C P, CDP #### [facility] [address] [place] [address] [place], [place] [id number] Supply Chain Director: Sang Glasgow MD Abs.Neutrophil (Seg) 9.91 k/uL High 1.50-8.10 [facility] Comment on above: Performed By: #### C P, CDP #### [facility] [address] [place] [address] [place] [place], [place] [phone] Supply Chain Director: Sang Glasgow MD Basophils/100 WBC (Bld) 0 % Normal 0-2 [facility] Comment on above: Performed By: #### C P, CDP #### [address] [place], [facility]83 Supply Chain Director: Sang Glasgow MD Eosinophils (Bld) [#/Vol] 0.04 10*3/uL Normal 0.00-0.44 [facility] Comment on above: Performed By: #### C P, CDP #### [address] [place], [place] [phone] Supply Chain Director: Sang Glasgow MD Eosinophils/100 WBC (Bld) 0 % Low 1-4 [facility] Comment on above: Performed By: #### C P, CDP #### [facility] [address] [place] [address] [place], [place] [phone] Supply Chain Director: Sang Glasgow MD Erythrocyte distribution width (RBC) [Ratio] 12.7 % Normal 11.8-14.4 [facility] Comment on above: Performed By: #### C P, CDP #### [address] [place], [place] [phone] Supply Chain Director: Sang Glasgow MD Hematocrit (Bld) [Volume fraction] 38.5 % Normal 36.3-47.1 [facility] Comment on above: Performed By: #### C P, CDP #### [facility] [address] [place] [address] Dr. [place], [place] [address] Supply Chain Director: Sang Glasgow MD Hemoglobin (Bld) [Mass/Vol] 13.0 g/dL Normal 11.9-15.1 [facility] Comment on above: Performed By: #### C P, CDP #### [facility] [address] [place] [address] Dr[place], [facility]83 Supply Chain Director: Sang Glasgow MD Immature granulocytes/100 WBC (Bld) 0 % Normal 0 [facility] Comment on above: Performed By: #### C P, CDP #### [address] [place], [facility]83 Supply Chain Director: Sang Glasgow MD Lymphocytes (Bld) [#/Vol] 2.56 10*3/uL Normal 1.10-3.70 [facility] Comment on above: Performed By: #### C P, CDP #### [address] [place], [facility]83 Supply Chain Director: Sang Glasgow MD Lymphocytes/100 WBC (Bld) 18 % Low 24-43 [facility] Comment on above: Performed By: #### C P, CDP #### [address] [place], [place] [address] Supply Chain Director: Sang Glasgow MD MCH (RBC) [Entitic mass] 30.1 pg Normal 25.2-33.5 [facility] Comment on above: Performed By: #### C P, CDP #### [address] [place] [address] Supply Chain Director: Sang Glasgow MD MCHC (RBC) [Mass/Vol] 33.8 g/dL Normal 28.4-34.8 [facility] Comment on above: Performed By: #### C P, CDP #### [facility] [address] [place], [place] [phone] Supply Chain Director: Sang Glasgow MD MCV (RBC) [Entitic vol] 89.1 fL Normal 82.6-102.9 [facility] Comment on above: Performed By: #### C P, CDP #### [facility] [address] [place], [place] [phone] Supply Chain Director: Sang Glasgow MD Monocytes (Bld) [#/Vol] 1.33 10*3/uL High 0.10-1.20 [facility] Comment on above: Performed By: #### C P, CDP #### [address] [place], [place] [phone] Supply Chain Director: Sang Glasgow MD Monocytes/100 WBC (Bld) 10 % Normal 3-12 [facility] Comment on above: Performed By: #### C P, CDP #### [address] [place], [place] [id number] Supply Chain Director: Sang Glasgow MD Neutrophil (Seg) 72 % High 36-65 [facility] Comment on above: Performed By: #### C P, CDP #### [address] [place], [place] [phone] Supply Chain Director: Sang Glasgow MD NRBC Automated 0.0 per 100 WBC Normal 0.0 [facility] Comment on above: Performed By: #### C P, CDP #### [facility] [address] [place] [address] Dr[place], [place] [phone] Supply Chain Director: Sang Glasgow MD Platelet mean volume (Bld) [Entitic vol] 9.5 fL Normal 8.1-13.5 [facility] Comment on above: Performed By: #### C P, CDP #### [address] [place] [address] Supply Chain Director: Sang Glasgow MD Platelets (Bld) [#/Vol] 225 10*3/uL Normal 138-453 [facility] Comment on above: Performed By: #### C P, CDP #### [facility] [address] [place] [address] Supply Chain Director: Sang Glasgow MD RBC (d) [#/Vol] 4.32 10*6/uL Normal 3.95-5.11 [facility] Comment on above: Performed By: #### C P, CDP #### [facility] [address] [place] [address] Supply Chain Director: Sang Glasgow MD WBC (d) [#/Vol] 13.9 10*3/uL High 3.5-11.3 [facility] Comment on above: Performed By: #### C P, CDP #### [facility] [address] [place] [address] Supply Chain Director: Sang Glasgow MD [facility] Albumin [Mass/Vol] 4.1 g/dL 3.5 - 5.2 g/dL [facility] Albumin/Globulin [Mass ratio] 1.4 {ratio} 1.0 - 2.5 [facility] ALP [Catalytic activity/Vol] 56 U/L 35 - 104 U/L [facility] ALT [Catalytic activity/Vol] 10 U/L 5 - 33 U/L [facility] Anion gap [Moles/Vol] 8 mmol/L Low 9 - 17 mmol/L [facility] AST [Catalytic activity/Vol] 12 U/L NINF - 32 U/L [facility] Bilirubin [Mass/Vol] 0.5 mg/dL 0.3 - 1 .2 mg/dL [facility] Calcium [Mass/Vol] 8.9 mg/dL 8.6 - 10. 4 mg/dL [facility] Chloride [Moles/Vol] 103 mmol/L 98 - 10 7 mmol/L [facility] CO2 [Moles/Vol] 26 mmol/L 20 - 31 mmol/L [facility] Creatinine [Mass/Vol] 0.57 mg/dL 0.50 - 0.90 mg/dL [facility] [place] GFR/1.73 sq M.predicted MDRD (S/P/Bld) [Vol rate/Area] - PINF [facility] Comment on above: These results are not intended for use in patients <18 years of age. eGFR results are calculated without a race factor using the 2020 CKD-EPI equation. Careful clinical correlation is recommended, particularly when comparing to results calculated using previous equations. The CKD-EPI equation is less accurate in patients with extremes of muscle mass, extra-renal metabolism of creatine, excessive creatine ingestion, or following therapy that affects renal tubular secretion. Glucose [Mass/Vol] 95 mg/dL 70 - 99 mg/dL [facility] Interpretation and review of laboratory results Abnormal [facility] Potassium [Moles/Vol] 3.5 mmol/L Low 3.7 - 5.3 mmol/L [facility] [place] Protein [Mass/Vol] 7.1 g/dL 6.4 - 8.3 g/dL [facility] Sodium [Moles/Vol] 137 mmol/L 135 - 144 mmol/L [facility] Urea nitrogen [Mass/Vol] 8 mg/dL 6 - 20 mg/dL [facility] Urea nitrogen/Creatinine (Bld) [Mass ratio] 14 9 - [address] [facility] [address] ABDOMEN PELVIS W IV CONTR Graciela 10-13-2022 CT ABDOMEN PELVIS W IV CONTRAST EXAMINATION: CT OF THE ABDOMEN AND PELVIS WITH CONTRAST 10/13/2022 1:14 am TECHNIQUE: CT of the abdomen and pelvis was performed with the administration of intravenous contrast. Multiplanar reformatted images are provided for review. Automated exposure control, iterative reconstruction, and/or weight based adjustment of the mA/kV was utilized to reduce the radiation dose to as low as reasonably achievable. COMPARISON: None. HISTORY: ORDERING SYSTEM PROVIDED HISTORY: [facility] pain TECHNOLOGIST PROVIDED HISTORY: [facility] pain Decision Support Exception - unselect if not a suspected or confirmed emergency medical condition->Emergency Medical Condition (MA) FINDINGS: Lower Chest: Visualized portions of the bilateral lower lungs are clear. No pleural effusion. Visualized portions of the lower mediastinal structures are within normal limits. Organs: The liver, gallbladder, spleen, pancreas, and bilateral adrenal glands are within normal limits. The bilateral kidneys are unremarkable in appearance demonstrating bilateral symmetric renal nephrograms. There is a 1.0 cm cyst at the lower pole of the left kidney. No hydronephrosis or hydroureter. GI/Bowel: Postsurgical changes are noted involving the stomach. The small and large bowel demonstrate normal caliber and appearance. A normal-appearing appendix is identified. Pelvis: The urinary bladder is partially filled and is unremarkable in appearance. No pelvic masses are identified. Peritoneum/Retroperit oneum: No free fluid or free gas is noted. No evidence of inflammatory process. Bones/Soft Tissues: The soft tissues and skeletal structures are within normal limits. IMPRESSION: Postsurgical changes are noted involving the stomach. Otherwise no CT evidence of an acute pathologic process in the abdomen or pelvis. Interpreted by: Dustin Schultz MD Signed by: Dustin Schultz MD 10/13/22 Final result Normal [facility] CT ABDOMEN PELVIS W IV CONTR AST Additional Contrast? Noneon 10-13-2022 Postsurgical changes are noted involving the stomach. Otherwise no CT evidence of an acute pathologic process in the abdomen or pelvis. [facility] RIS CONSOLIDATED EXAMINATION: CT OF THE ABDOMEN AND PELVIS WITH CONTRAST 10/13/2022 1:14 am TECHNIQUE: CT of the abdomen and pelvis was performed with the administration of intravenous contrast. Multiplanar reformatted images are provided for review. Automated exposure control, iterative reconstruction, and/or weight based adjustment of the mA/kV was utilized to reduce the radiation dose to as low as reasonably achievable. COMPARISON: None. HISTORY: ORDERING SYSTEM PROVIDED HISTORY: [facility] pain TECHNOLOGIST PROVIDED HISTORY: [facility] pain Decision Support Exception - unselect if not a suspected or confirmed emergency medical condition->Emergency Medical Condition (MA) FINDINGS: Lower Chest: Visualized portions of the bilateral lower lungs are clear. No pleural effusion. Visualized portions of the lower mediastinal structures are within normal limits. Organs: The liver, gallbladder, spleen, pancreas, and bilateral adrenal glands are within normal limits. The bilateral kidneys are unremarkable in appearance demonstrating bilateral symmetric renal nephrograms. There is a 1.0 cm cyst at the lower pole of the left kidney. No hydronephrosis or hydroureter. GI/Bowel: Postsurgical changes are noted involving the stomach. The small and large bowel demonstrate normal caliber and appearance. A normal-appearing appendix is identified. Pelvis: The urinary bladder is partially filled and is unremarkable in appearance. No pelvic masses are identified. Peritoneum/Retroperit oneum: No free fluid or free gas is noted. No evidence of inflammatory process. Bones/Soft Tissues: The soft tissues and skeletal structures are within normal limits. [facility] Dustin Montenegro MD - 10/13/2022 EXAMINATION: CT OF THE ABDOMEN AND PELVIS WITH CONTRAST 10/13/2022 1:14 am TECHNIQUE: CT of the abdomen and pelvis was performed with the administration of intravenous contrast. Multiplanar reformatted images are provided for review. Automated exposure control, iterative reconstruction, and/or weight based adjustment of the mA/kV was utilized to reduce the radiation dose to as low as reasonably achievable. COMPARISON: None. HISTORY: ORDERING SYSTEM PROVIDED HISTORY: Q pain TECHNOLOGIST PROVIDED HISTORY: Q pain Decision Support Exception - unselect if not a suspected or confirmed emergency medical condition->Emergency Medical Condition (MA) FINDINGS: Lower Chest: Visualized portions of the bilateral lower lungs are clear. No pleural effusion. Visualized portions of the lower mediastinal structures are within normal limits. Organs: The liver, gallbladder, spleen, pancreas, and bilateral adrenal glands are within normal limits. The bilateral kidneys are unremarkable in appearance demonstrating bilateral symmetric renal nephrograms. There is a 1.0 cm cyst at the lower pole of the left kidney. No hydronephrosis or hydroureter. GI/Bowel: Postsurgical changes are noted involving the stomach. The small and large bowel demonstrate normal caliber and appearance. A normal-appearing appendix is identified. Pelvis: The urinary bladder is partially filled and is unremarkable in appearance. No pelvic masses are identified. Peritoneum/Retroperit oneum: No free fluid or free gas is noted. No evidence of inflammatory process. Bones/Soft Tissues: The soft tissues and skeletal structures are within normal limits. IMPRESSION: Postsurgical changes are noted involving the stomach. Otherwise no CT evidence of an acute pathologic process in the abdomen or pelvis. [employer] Phone: Radiology Study observation (narrative) [employer] Phone: CT ABDOMEN PELVIS W IV CONTR AST Additional Contrast? NoneOrdered By: Dustin Schultz on 10-13-2022 EDWARD TANG [facility] Work Phone: Comp Metabolic Profon 2022 Albumin [Mass/Vol] 4.1 g/dL Normal 3.5-5.2 [facility] Comment on above: Performed By: #### C P, CDP #### [facility] [address] [place] [address] [address] [place], [place] [id number] Supply Chain Director: Sang Glasgow MD Albumin/Glob Ratio 1.4 Normal 1.0-2.5 [facility] Comment on above: Performed By: #### C P, CDP #### [facility] [address] [place] [address] [address] [place], [place] [id number] Supply Chain Director: Sang Glasgow MD Alkaline Phos 56 U/L Normal 35-[address] [facility] Comment on above: Performed By: #### C P, CDP #### [facility] [address] [place] [address] [address] [place], [place] [id number] Supply Chain Director: Sang Glasgow MD ALT [Catalytic activity/Vol] 10 U/L Normal 5-33 [facility] Comment on above: Performed By: #### C P, CDP #### [facility] [address] [place] [address] [address] [place], [place] [id number] Supply Chain Director: Sang Glasgow MD Anion gap [Moles/Vol] 8 mmol/L Low 9-17 [facility] Comment on above: Performed By: #### C P, CDP #### [facility] [address] [place] [address] [address] [place], [place] [id number] Supply Chain Director: Sang Glasgow MD AST [Catalytic activity/Vol] 12 U/L Normal <32 [facility] Comment on above: Performed By: #### C P, CDP #### [facility] [address] [place], [place] [id number] Supply Chain Director: Sang Glasgow MD Bilirubin [Mass/Vol] 0.5 mg/dL Normal 0.3-1.2 [facility] Comment on above: Performed By: #### C P, CDP #### [facility] [address] [place], [place] [id number] Supply Chain Director: Sang Glasgow MD BUN/CRE Ratio 14 Normal 9-[address] [facility] Comment on above: Performed By: #### C P, CDP #### [facility] [address] [place], [place] [id number] Supply Chain Director: Sang Glasgow MD Calcium [Mass/Vol] 8.9 mg/dL Normal 8.6-10.4 [facility] Comment on above: Performed By: #### C P, CDP #### [facility] [address] [place], [place] [id number] Supply Chain Director: Sang Glasgow MD Chloride [Moles/Vol] 103 mmol/L Normal 98-107 [facility] Comment on above: Performed By: #### C P, CDP #### [facility] [address] [place], [place] [id number] Supply Chain Director: Sang Glasgow MD CO2 [Moles/Vol] 26 mmol/L Normal 20-31 [facility] Comment on above: Performed By: #### C P, CDP #### [facility] [address] [place], [place] [id number] Supply Chain Director: Sang Glasgow MD Creatinine [Mass/Vol] 0.57 mg/dL Normal 0.50-0.90 [facility] Comment on above: Performed By: #### C P, CDP #### [facility] [address] [place] [address] Supply Chain Director: Sang Glasgow MD GFR/1.73 sq M.predicted among non-blacks MDRD (S/P/Bld) [Vol rate/Area] mL/min/{1.73_m2} Normal >60 [facility] Comment on above: Result Comment: These results are not intended for use in patients <18 years of age. eGFR results are calculated without a race factor using the 2020 CKD-EPI equation. Careful clinical correlation is recommended, particularly when comparing to results calculated using previous equations. The CKD-EPI equation is less accurate in patients with extremes of muscle mass, extra-renal metabolism of creatine, excessive creatine ingestion, or following therapy that affects renal tubular secretion. Performed By: #### C P, CDP #### [facility] [address] [place], [place] [id number] Supply Chain Director: Sang Glasgow MD Glucose [Mass/Vol] 95 mg/dL Normal 70-99 [facility] Comment on above: Performed By: #### C P, CDP #### [facility] [address] [place], [place] [id number] Supply Chain Director: Sang Glasgow MD Potassium [Moles/Vol] 3.5 mmol/L Low 3.7-5.3 [facility] Comment on above: Performed By: #### C P, CDP #### [address] [place] [address] Supply Chain Director: Sang Glasgow MD Protein [Mass/Vol] 7.1 g/dL Normal 6.4-8.3 [facility] Comment on above: Performed By: #### C P, CDP #### [address] [place] [address] Supply Chain Director: Sang Glasgow MD Sodium [Moles/Vol] 137 mmol/L Normal 135-144 [facility] Comment on above: Performed By: #### C P, CDP #### [facility] [address] [place] [address] Supply Chain Director: Sang Glasgow MD Urea nitrogen [Mass/Vol] 8 mg/dL Normal 6-20 [facility] Comment on above: Performed By: #### C P, CDP #### [facility] [address] [place], [place] [id number] Supply Chain Director: Sang Glasgow MD HCG, ,Urineon 10-13 Beta HCG ( test) Ql (U) Negative Normal NEG [facility] Comment on above: Result Comment: Spec imens with hCG levels near the threshold of the test (25 mIU/mL) may give a negative or indeterminate result. In such cases, another test should be performed with a new specimen in 48-72 hours. If early is suspected clinically in this setting, correlation with quantitative serum b-hCG level is suggested. [employer] has confirmed the use of plasma for this test. This has not been cleared or approved by the U.S. Food and Drug Administration. The FDA has determined that such clearance is not necessary. Performed By: #### U KAPIL MURRELL, [facility] #### [facility] [address] [place] [address] Supply Chain Director: Sang Glasgow MD Microscopic Urinalysison Bacteria, UA TRACE Abnormal None [facility] [place] Epithelial Cells UA 5 TO 10 [facility] Interpretation and review of laboratory results Abnormal [facility] Mucus, UA 3+ Abnormal None [facility] RBC clumps Auto (Urine sed) [#/Area] 2 TO 5 [facility] WBC, UA None [facility] , Urineon 3 Beta HCG ( test) Ql (U) Negative NEGATIVE [facility] Comment on above: Specimens with hCG l evels near the threshold of the test (25 mIU/mL) may give a negative or indeterminate result. In such cases, another test should be performed with a new specimen in 48-72 hours. If early is suspected clinically in this setting, correlation with quantitative serum b-hCG level is suggested. [employer] has confirmed the use of plasma for this test. This has not been cleared or approved by the U.S. Food and Drug Administration. The FDA has determined that such clearance is not necessary. [facility] UA w/Reflex Cultureon 2022 Bilirubin, SemiQt,Ur Negative Normal NEG [facility] Comment on above: Performed By: #### U MICAO, UAX, UHCG #### [facility] [address] [place], [place] [id number] Supply Chain Director: Sang Glasgow MD Blood, Urine 1+ Abnormal NEG [facility] Comment on above: Performed By: #### U MICAO, UAX, UHCG #### [facility] [address] [place], [place] [id number] Supply Chain Director: Sang Glasgow MD Clarity (U) Clear Normal CLEAR [facility] Comment on above: Performed By: #### U MICAO, UAX, UHCG #### [facility] [address] [place] [address] [address] [place], [place] 1412883 Supply Chain Director: Sang Glasgow MD Color (U) Yellow Normal YEL [facility] Comment on above: Performed By: #### U MICAO, UAX, UHCG #### [facility] [address] [place] [address] [address] [place], [place] 7921283 Supply Chain Director: Sang Glasgow MD Glucose Ql (U) Negative Normal NEG [facility] Comment on above: Performed By: #### U MICAO, UAX, UHCG #### [facility] [address] [place] [address] [address] [place], [place] 8354983 Supply Chain Director: Sang Glasgow MD Ketones Ql (U) Negative Normal NEG [facility] Comment on above: Performed By: #### U MICAO, UAX, UHCG #### [facility] [address] [place] [address] [address] [place], [place] [id number] Supply Chain Director: Sang Glasgow MD Leukocyte esterase Test strip Ql (U) Negative Normal NEG [facility] Comment on above: Performed By: #### U MICAO, UAX, UHCG #### [facility] [address] [place] [address] [address] [place], [place] 8097783 Supply Chain Director: Sang Glasgow MD Nitrite,Ur Negative Normal NEG [facility] Comment on above: Performed By: #### U MICAO, UAX, UHCG #### [facility] [address] [place] [address] Dr. [place], [place] 9484883 Supply Chain Director: Sang Glasgow MD PH,Ur 6.0 Normal 5.0-9.0 [facility] Comment on above: Performed By: #### U MICAO, UAX, UHCG #### [facility] [address] [place] [address] Dr. [place], [place] [phone] Supply Chain Director: Sang Glasgow MD Protein Ql (U) Negative Normal NEG [facility] Comment on above: Performed By: #### U MICAO, UAX, UHCG #### [address] [place], [place] [phone] Supply Chain Director: Sang Glasgow MD Spec. [place],Ur >1.030 High 1.010-1.020 [facility] Comment on above: Performed By: #### U MICAO, UAX, UHCG #### [facility] [address] [place] [address] Dr. [place], [place] [phone] Supply Chain Director: Sang Glasgow MD Urobilinogen,Ur Normal Normal NORM [facility] Comment on above: Performed By: #### U MICAO, UAX, UHCG #### [address] [place], [place] 5133483 Supply Chain Director: Sang Glasgow MD Urinalysis with Reflex to Cu ltureon 10-13-2022 Bilirubin Urine Negative NEGATIVE [facility] Color, UA Yellow Yellow [facility] Glucose Auto test strip (U) [Mass/Vol] Negative NEGATIVE [facility] Interpretation and review of laboratory results Abnormal [facility] Ketones (U) [Mass/Vol] Negative NEGATIVE [facility] Leukocyte esterase Auto test strip Ql (U) Negative NEGATIVE [facility] Nitrite Auto test strip Ql (U) Negative NEGATIVE [facility] Protein (U) [Mass/Vol] 6.0 mg/dL 5.0 - 9.0 [facility] Protein (U) [Mass/Vol] Negative NEGATIVE [facility] Specific [place], UA High 1.010 - 1.020 [facility] Turbidity UA Clear Clear [facility] Urine Hgb 1+ Abnormal NEGATIVE [facility] Urobilinogen, Urine Normal Normal [facility] Urinalysis,Microon 3 Bacteria TRACE Abnormal NONE [facility] Comment on above: Performed By: #### U MICAO, UAX, UHCG #### [facility] [address] [place], [place] [id number] Supply Chain Director: Sang Glasgow MD Epithelial cells LM Ql (Urine sed) 5 TO 10 Normal 0-25 [facility] Comment on above: Performed By: #### U MICAO, UAX, UHCG #### [facility] [address] [place], [place] 9091483 Supply Chain Director: Sang Glasgow MD Mucus Strands 3+ Abnormal NONE [facility] Comment on above: Performed By: #### U MICAO, UAX, UHCG #### [facility] [address] [place], [place] 9808583 Supply Chain Director: Sang Glasgow MD Urine RBC's 2 TO 5 Normal 0-2 [facility] Comment on above: Performed By: #### U MICAO, UAX, UHCG #### [facility] [address] [place], [place] 8190383 Supply Chain Director: Sang Glasgow MD Urine WBC's None Normal 0-5 [facility] Comment on above: Performed By: #### U MICAO, UAX, UHCG #### [facility] [address] [place], [place] 7574983 Supply Chain Director: Sang Glasgow MD Physical Therapy Noteon 08-0 Physical Therapy Note [id number]#1 .00[facility] Provider Orderson 03-25-2022 Provider Orders [id number]#1 .00[facility] Consent Formson 12-17-2021 Consent Forms [id number]#1 .00[facility] Provider Orderson 12-17-2021 Provider Orders [id number]#1 .00[facility] Provider Orderson 12-14-2021 Provider Orders [id number]#[address] [place] [address] Coding Summaryon 12-09-2021 Coding Summary HTMLBase 64 LklkscqxOEq9jOu+PGhlY WQ+TB7UFIBmH23oaJUiqI 0XK9zHHX3MNAIWDJZWKT1 IRR2eqKS3EVxdJ3ZucmFq QltxfRGyYS66FMe1YTX2m NmzYRkohO9kuUHgF7i1Td HdBA42jH85OCdpEFKhTpA 3LjZpbjsgbWFy H9euWcHncVKpIft+PHRhY mxlIHdpZHRoPScxMDAlJy XjvFtgSG8wTw6aAMDiAIY vbGxhcHNlOiBj g8xfYAPrNWzzGK7teKwzD 2ElvFJ4APMyi6z2Wr73yU I+WBBmYVX0yWdyCYkgn85 2RwDqe3jbWKJ3 zJSxCOiuHJS8E22cw1F6Z SNgJMCeCPF5eOG9nQ8zuZ zmbhkyB5AsdYZbRaT6ITC 7cNUhiV6byBwj dvteaL4nFql+F38DIY0LU QRDTV2PDwa2U3HqVxhhcS I+CP89AVVlJT89xSGojGG mz8dxeZe7VlOm HPWxCUQ4dGraFTzcc2JfJ JUoX06gmMFin8C5WINqnA wrcGKiTfGchEB1rX0jKVm kukilp6ruhbca Dcahg2qoea64mR55T01qY AawEGHxZSF8SGTaJXXmmP tdtn2psK5qLo6+UOikr3v ny4fdrVf7VaKw ANLoilGkmSabDBG5n5OrI t50U4CwnCcae0HuPyd1aa 66tZFlo5O5sNW9OVlrOUT lnY5cAMwqGsS4 GFOhZcFicA20sAXzXNvtY l6imWfzvEgsZA2aYRZcqg hnZCXisO7uTBZenSJrlGk bLI8jHKRxuiee h162PrPwXRX0TNKsjTJaA 9HzwS1lByYjSEDkLWCdD9 EtgBMgYJstA101UIxlCzJ 6LXHrhnZjN6Xs MLGyiCxkUjF1j5Q3Sa3Xm 6ToayezTQM4PCblTQP4Ie DvVaYpWlI8J8EaCyz0NCS ipLqfTA3nL0Kj CAGmshbuibpsqVJ8OMQaQ IMznJ71yEAxHRwsRw4yj3 L9m950ECPnPSHqkE24Eo3 udDogMTBwdCBU rK0syshse5snqtblKrPfG EYsILj6VEe8TKMpgZyrQp SdNDF2DcB8GBZ9bVLeuH7 yoNuhmhlsxT4y Oyc+C51cvZ4rVUS9WUZ6w szgBAVzwyKaMR78JG39N3 RyPjwvdGFibGU+PGRpdiB baHtlBW8mXpOg o3qoh4XoCAeuX1PhVONgQ IwvTcc2XWMuQZR4aNN9uS 3oWGDuMCurx5W6bGZ9K1S hujNega7xk8rr IGFmDSfpF31yeJStm9U0S PYwnNG2JOWxhAquPnOziF 93Oyc+JAEuxVgvt1NaXaa ru5tqe8uhjMk0 ObJqUKLkmeKkcEtmTDD5a 4FqPv86K75gCMkpAQMlBN XoBLOyQQBjjGdyan2uzP3 wIi8+PGNvbCB3 tGO7bZ4yCHSvEeI4OEfiF 648SjWotSXbGucdd2foc6 rdbVr1SdGwPYEpjkOvxNc tRWO5j0BlHz56 R55yWXzeAQBgHILmTCPeH WYdjAqwtx8ttH5sNf6+PC 8td7leru81lD68gSJ+PHR vZFP4bYahFKag YQPmgI7oVWtlXjT6DAMnJ tJhhI61gINkQZqhTi9xcW ajkXhtMA3eSMYfgzkox57 8QzDyp3noBITv aSEqXJbuAVA9T66uq5D0F FBhPEHuCXI8fDE3pK2zeE lnbjogbGVmdDsgdmVydGl yHLlsKArxX430 IHRvcDsnPlBhdGllbnQgT oCcKUs8W3YnSrx1KCIxkD zuZX3faQJxINmiJg0byZh kwKhtGM9mBSCb tewqp156NkOaa8ndGMUlx NBwMGtqPSN9Q11mc7Z4ND PlERFcDTL8nII9lQ0joMj nbjogbGVmdDsg edBjgUpnGKwaEUsvF641H HRvcDsnPkJpcnRoIERhdG Q5OL96PW09zAInr5L5kGY 1G7UkQGMajetr dkufwWC1MHXaFCNzkF05G p6sqGxdAa1aQMCoFCI2DM MdfDYzZ6YvcD6oKmIvEGA hZAIyC3DoqALd CLseX600CWdwPuQ6KINcg nGgM2AbVKYmuIxpZaG1s6 O4Nt2SE2X1FG57IB71jDJ sk9B9rMW5M1Xq OVVptvxwombzpXH3UQApD GKvxZ93Rg4gyBszFu4wFL PtBGP7JZBqzTYeI3TxrQ8 yOiAjMDAwMDAw K0MvnOSaMVqgU349XKigZ wW3VDMangSqI0EcPCCnhB uxEnR9c9W3Vq5OQWh0XY6 9ED52bZMrf9W3 aDP7A0YrUABohkaovyvty AB0JQHsGHJcyY97Ys9czW otWl9bGYWmUZX7HDGumRD nK2BleJ1lAkTn HVSuFKMeI7BskEGeMWtnB 076JEenShZ7CYGvhjPiA0 YcVCQpoSkbRsZ8g3V1Xe4 UCMVqAS22WUY1 fBN3YV72EF93D1OuOhtuf GFibGU+PHRhYmxlIHdpZH RoPScxMDAlJyBzdHlsZT0 iGc7sCTYhWRYe yEdacPSbWuZxe1nhENXdC UthNG4zyYvlB2GnuPB7BB Pac5t7Bv83S25zR0TrpYO +NAZehOM4xYO9 vA6sPmBxQyK2ALqxI746N uYpuFSlJpnvz5oxy2cbcI t5PnL4MHXemwXixKmaPZQ 3s8IyCc23E04q IHdpZHRoPSIxNSUiIHZhb Shrvn1ylN7yCl3+PGNvbC S6iKJ3eP1sKbMpUoR6DMl uY446QkSqeDWn Mynte7ttz0xfsRl5NfQyE IJoxiWnmWpgIHA6q5ZmFr 16W0JuiHdeg7NcEok3wp0 7lKKjl0T3wDC1 Z5YyBFFmswigyVDavKshN Y7ySRSzfsspADBmqK2oLF XqF3n3QqPtMrS9DJhnK6F milA8LJNeiOLa JFmxUAB2L56dk9C6RSReG RJoRRP1uMY4cX5hbKhyhh ogbGVmdDsgdmVydGljYWw dWIxqP260CVGd dInqFQVmwF6oXHWcdIZrl TnmQQ9zDAPgggvjHzaEBH xJSEVSLCBTSEFZTEVFIEN IRVlBTkUgTUFF JB68OY08jKMoo9H9wUL1M 2LbBUPtioixwsdkmVW4UR RwBMUifB13eKAjNWufUn0 om1M1h356RTGo ZASpdA75Bj7lbRskJJVlp FCLwT2qtifqd5mqhhgmUm FuRVAfAMo9RMr1CGNarPz vMsClULT4CiO1 AMT5gFTtlV7qwEwxdkmbc G9wOyc+ELkmVIUuLWa2YY wvdGQ+QOJuBUL4bUzmDFf gTZPchL8zFWIf K9m5ZbKzJpA5VNpoN9KmW QJfgpeoEp74jV6pOgJyYk R8TQvwK0BxpeR8BPVvzUB zZCtaWJF8P14i z0D0KRUsYRVnVLV0uAR3s D5utPchvwlvlEShmAhcyz NvuUsxMDnuASfgK741DNH vcDsnPjMwIFll PVAeCD77YW79iHHua9N2w NL5Y1EhBRLdujdntvwtcC C8MJCpBRVueV78tMRfMQp qGu9ld0L7g315 NVIvCUJozQ45Ud8haMwyD CMkiSUFuR0rpouzt8jmtm mnTcWqFOYnXYs3CRj9HWP saWduOiBsZWZ0 MpF7AYV2lYOpbC6euQogj rmrwU1tEkx+RkVNQUxFPC 98CF43dGIkv7M1zPZ6S9K hZGRpbmctcmln kDU7SOEkLIFrnE84oPWsF OnsUz4tw9E1l434SIXcAD BhiZ20Vk0xdTyyJABrsYO PwJ1nfkgqe3jy oiiaYnGbSOEeYMv3HUa9H UAatRjiVsIbLPY5ApR4DA X4kKMxrP7uyBqkgrqcpH4 wOyc+UmVjdXJy qI3xZY83wGMzwTxjmbL6O 3RkPjwvdHI+ZC46ULZwWT 70oPEygDHdk9folPg5QmW hYFRoYYS6eSue JBikj4ViIYYpJ63xbSXcf 4L9RULriWmrrJCkUdMbnD D8kD4fKLssysnoo8dkqzd qUroih0bysk65 lJ57Y26aFZieENFzBGNiS HFeDMObqEpkih9omL3yBu 8+QOXglLG0yZQ3wT8vGmZ dDhV2HKloZ283 ElIelXVvXtrov7vvt6ehd Dv9OfOhJXEyzbGuvWkaUA E4e0ByLp48T99iKIyuWGW oPSIyMCUiIHZh aQpidd4kcR2gTb6+PC9jb 7cruu87zI51bCK+PHRkIH A5aRmsJQxyFJPhdF5cTLu fFmO5MCOsHaSi rM19yUMgYXmmCm6vcPudd MxuDK6zSJXhrefql815Ix Uxy1wgTSSflCUmJSpgFRP 2P67xh6A1ENQx PHOkUWQ2eGG6pR3ubEboy jogbGVmdDsgdmVydGljYW cqOKbnV249DJIcrDajBqH nsMPzZ2ugtsXG AW6zEonzbQR+IWAoIIF8v OikBYkdCHEdbS9yGAWqL6 s3QkSmUeS3FKedE2WpzfU 6IGJvbGQgMTBw bJNDuF6gtjtjt4rrnisfL iPjJASiJKq5EXe8EJEbqB vyAmQfTSI7RhJ7UIV7yGV ycE5qtLdvjxey wY2fOyh+RklOOjwvdGQ+P GKrIEX3cHnvKDxrHEMcbO 2tBSHoP7g6HeKsQlZ1KRp hH2FgszG7ZMEz fXAqIYEmaZOMfF6lonzyc 5qqcorxOuDcMJJwOGg9XH k0OUAvfXjvSbHfMVW8BjY 5ZRO9sXLneU3l fYwlhjdkxP7wFpf+TVJOO jwvdGQ+YLOdVIF5qIsvYA btMIDkxZ4vISKrJ7c1RnZ sYkG8AAnyN5Qy uoF2FNHxgXUmDKHuhCQOr U3allnmh2kdikblClHeQD CfKOe0HCr9RSNciQebKeH dUCE5KzI0TGF8 iHFzsE0rfGqdurlcmY1fH yc+RNA9VXI8BI59GH44Q8 RyPjwvdGFibGU+PHRhYmx lIHdpZHRoPScx MDA (more content not included)... [facility] Progress Note-Physicianon Progress Note-Physician Patient: LILIANA MALONEY Age: 31 years Sex: Female : 1990 Associated Diagnoses: None Author: Lukasz Sebastian MD Postoperative Information Post Operative Note: Post Anesthesia Care Unit. Anesthetic utilized: General. Regional: Interscalene Block. Health Status Allergies: Allergic Reactions (All) Severe CASHEWS- Hives. Doxycycline- Nausea. Canceled/Inactive Reactions (All) Severity Not Documented Nuts- Nausea. Problem list: All Problems Extreme obesity.. / SNOMED CT [id number] / Confirmed Hypertension / SNOMED CT 0471126717 / Confirmed Amenorrhea / SNOMED CT 67081722 / Confirmed Labral tear of shoulder / SNOMED CT 254953246 / Confirmed Canceled: Status post labral repair of shoulder / SNOMED CT 203249709 right Canceled: Palmar fasciitis / SNOMED CT 951111665 dequervain's Canceled: None / SNOMED CT 879340318 Canceled: Fasciitis / SNOMED CT 28827841 PALMAR LEFT Canceled: Cubital tunnel syndrome on right / SNOMED CT 96130140 Canceled: Carpal tunnel syndrome / SNOMED CT 76284717 Physical Examination Intake and Output adequate hydration Pain assessment: Self-reports no pain. General: Alert and oriented, No acute distress. HENT: Oral mucosa is moist, dentition unchanged. Respiratory: Respirations: Are within normal limits. Pattern: Regular. Cardiovascular: Normal rate. Neurologic: Alert, Oriented. Review / Management Lines and Tubes: Peripheral catheter. ECG interpretation: Within normal limits. Condition: Stable. Assessment Anesthetic outcome No anesthetic complications noted. Adequate pain relief. No Complaint of nausea and vomiting. Plan Transfer/ Discharge: Patient can be discharged from PACU when criteria met, Patient can be discharged from anesthesia care. Condition stable. Normal [facility] Comment on above: Result Comment: Elec tronically Signed By: Romulo SOUAZ, Lukasz\.br\Date and Time Signed: 11/23/21 08:30 EDT Physician Orderon 11-11-2021 Physician Order [id number]# 1.00CD:127 Normal [facility] IntraOperative Documentson 0 10-30-2021 IntraOperative Documents [id number]# 1.00CD:127 Normal [facility] Progress Note-Physicianon Progress Note-Physician Patient: LILIANA MALONEY Age: 31 years Sex: Female : 1990 Associated Diagnoses: None Author: Lukasz Sebastian MD Preoperative Information Anesthesia history: Patient History: No personal or Family history of problems with anesthesia. Re-eval prior to induction: Inital eval reviewed: No significant interval change. Review of Systems Constitutional: Negative. Cardiovascular: Cardiovascular risk stratafacation reviewed, 1 FOS without difficulty, No chest pain. Respiratory: No SOB. Hematology/Lymphatics : Negative. Gastrointestinal: Negative. Musculoskeletal: OTHER. Neurologic Psychiatric: Negative. Health Status Allergies: Allergic Reactions (Selected) Severe CASHEWS- Hives. Doxycycline- Nausea. Current medications: (Selected) Inpatient Medications Ordered Lactated Ringers IV Nida 1000 mL 1,000 mL: 1,000 mL, IV, 150 mL/hr, Routine, Start date 10/21/21 8:30:00 EST, 6.7 hour(s), Total volume (mL): 1,000, 126 kg, 2.34, m2 cefazolin additive + Premix Sodium Chloride 0.9% 100 mL: 3 gram = 100 mL, Soln-IV, IV Piggyback, PREOP, Routine, Start date 10/21/21 8:30:00 EST, 200 mL/hr, Infuse over 30 minute(s) Documented Medications Documented lisinopril 10 mg Tab: 10 mg = 1 tab(s), Oral, Daily, High blood pressure Problem list: All Problems Extreme obesity.. / SNOMED CT [id number] / Confirmed Amenorrhea / SNOMED CT 97125244 / Confirmed Labral tear of shoulder / SNOMED CT 016250512 / Confirmed Canceled: Status post labral repair of shoulder / SNOMED CT 707960203 right Canceled: Palmar fasciitis / SNOMED CT 438087053 dequervain's Canceled: None / SNOMED CT 450468191 Canceled: Fasciitis / SNOMED CT 63223669 PALMAR LEFT Canceled: Cubital tunnel syndrome on right / SNOMED CT 36565460 Canceled: Carpal tunnel syndrome / SNOMED CT 73731457 Histories Past Medical History: Active Amenorrhea ([id number]) Procedure history: right cubital tunnel release on 06/17/2016 at 26 Years. revision first dorsal compartment release of right wrist on 06/17/2016 at 26 Years. carpal tunnel release, left wrist. incision of extensor sheath first dorsal compartment, left wrist on 12/02/2014 at 24 Years. right carpal tunnel release. release of the first dorsal compartment, right wrist. cortisone injection into the left carpal tunnel. on 08/07/2014 at 24 Years. Shoulder repair ([id number]). Comments: 07/24/2014 11:58 EST - Nova Parry RN right labrum Repair of ankle ([id number]). Comments: 07/24/2014 11:59 EST - Brinda RAZA, Nova mckenna Social History Social & Psychosocial Habits Alcohol 11/25/2014 Risk Assessment: Denies Alcohol Use Substance Abuse 07/24/2014 Risk Assessment: Denies Substance Abuse Tobacco 07/24/2014 Risk Assessment: Denies Tobacco Use . Physical Examination Pain assessment: Self-reports no pain. Airway: Mallampati classification: II (soft palate, fauces, uvula visible). Distance: Adequate. Mouth: Adequate opening. Neck: Full range of motion. Respiratory: Respirations are non-labored. Cardiovascular: Regular rhythm. Neurologic: Alert, Oriented. Review / Management Results review: No qualifying data available . Plan [place] [employer]hesi[employer] (ASA) physical status classification: Class II. Anesthetic Preoperative Plan Anesthesia: General. , Regional ISB block for post op pain control.. Anesthetic plan, risks, benefits, and alternatives discussed with the patient and/or family. Patient verbalized understanding. Pt agrees with anesthetic plan and accepts all risks including but not limited to; Bleeding, infection, nerve injury, dental injury, eye injury, shortness of breath, headache, low blood pressure, serious problems with the heart and lungs, allergic reactions, failed block and .. Normal [facility] Comment on above: Result Comment: Elec tronically Signed By: Romulo SOUZA, Lukasz\.viktoria\Date and Time Signed: 10/26/21 09:25 EST Coding Summary.on 10-23-2021 Coding Summary. CD:[id number] G h0bWw+PGhlYWQ+XY5GNKH qQ70kdDJibU2MJ2hXKB2F GUXLGDZJCC3SZT4ydFZ6Z YgjQ5OfbxGd UtdgrYPrZC52NHw4TID6r JaoEHivhR6omTMlQ2b9Xl UiSB35dE56ZRglLYFlRzV 3LjZpbjsgbWFy W2ynYoOjtDDnNnm+PHRhY mxlIHdpZHRoPScxMDAlJy ZxdUovSY1bAk6tDFZzOMH vbGxhcHNlOiBj x1mwVYTqRNehDM3xlFdeQ 2QdlBP8FJNku1a0Ne90iX I+DXThXOT7fOhmKRpym82 1VcVjf7raGUQ3 yLDmYZdnBFZ4U77yp1M8P CTmPZPzOVP2vXD4vI0ltW nykyjiD2IzlETuMdK8JSO 1zKPtxP2ecZkc hvzsrQ4rRio+R57OCZ4YQ CTGZN8QPre5C5KpAiyasT I+WI59KZCnTU61oRIbzOJ ok3mcgKs0QcCg VZOjBUW5gAfeICzbv5FnZ VSpV69xuCMir7I9ISIgwQ txlJMzVvMcnUW5sA5qFVs hbyasp5erygep Ycbxc2cnfw80pI89F69gI IwtWSAvEYH6IBJeZGIutY ytjz5haE0mFz6+NHzad9g dh4sgjMf3KyKv JZDssiLkmVurXGA9o5MwN d05L4EsjXeux7MoJse6qo 02pHCuw7N4oJV4QEclXFF hvL1oJPrcCeS8 CUMqKaYnhV26lSInDFnqD b1wcHxzdOgxCP8yPLPijx zwFRSwqM5qMXZmwZLtzFn gUL2tRYNyijfy m175TrDaOMR6BAPbsXHwS 0TlbV9zAdPmDMJxVLReZ2 YrlGBaIJoeA551DAxsCdM 5ZITuqlHqO5Dr NREjrKrnMfO5n6A6Oh6Sp 3GjhwkrKGI6RQpiUXHgNq F7KzSlRmL0E5ElRmu3HJI wjTdjAW5jG5Rt KMUpueyufkyitVA3STUfW DXgbN17fABlSKweDq4lz5 R0q621GOOuAHLnjB04Bf3 udDogMTBwdCBU iX1lsgbcn5hstuivMhIsY EWoVCu1LDu5BYKazIrtVb PeGOQ9GnU7BOO2xTZoaJ5 hwRzaziqgwF3i Oyc+Y95uvN6kLIU4NDT0e atdUOPkviBiJU61GF17W8 RyPjwvdGFibGU+PGRpdiB biUzcDI1yBsUk i2hff9ZhBMsyG2LaDRKnZ OmaScp4ZLAnWOX6kQK9eP 5gSKSwSRkfg1F0mJL4A7S vvvIiql9lt4io AJYcTVrcT18seMKjn7N6J YNouSX7ZFKemImuXiFgqD 93Oyc+SSKlpQdtj8RfThy gs4hyi3nqdNp1 ZnPuBCWydvOxcKjgHJQ1c 0HsGg21U45nTCbnZIJkVE WkJQGeXTEchElnwu3glD9 wIi8+PGNvbCB3 pER7xP2pTTVhHnH5QBwcO 991CpCibHFlScpbk0ddz1 cskDy7GmTyGCNqmeLwmPb jTOK5w6MzNh17 P49gAUhgBNUrTXUnCVBmP OIvgHempg1ksQ8wLh8+PC 6zv0ywuk88aL31cTK+PHR gCVH2rJfdBBer WOFekD4bYFzrFnX2BPFtF zYwlL07uTBwFNlgSd2haI ilaNoiYF6zOGMbihikn51 6MrIgd8yfZEJi uVUwIMceJTO6U31rl1U9F GNhORFpBNQ9sTL8mH1owP lnbjogbGVmdDsgdmVydGl dMGuhCAhnD614 IHRvcDsnPlBhdGllbnQgT pYcADa4F7GlZms2HMEclV emDL3oqDUtUAlyEs0poOr guQgjBO6dLFJx eqqkj000ZuYmk8khUOYcl KMtWCopKJT1B60af3B5FM NfPSBhPZB0fPY7eQ8raDr nbjogbGVmdDsg ksSraFnkXYsmMZeyI537Z HRvcDsnPkJpcnRoIERhdG J4CW80VW96qCSja7O0sUU 9J6KaJGBruknh enuoqYJ2WTWsVZMbbN68J t8lyZufLv4nAPHfUSF3OF QouKAuH6EopP2aXjGpECL vUYWnI1XuoUXv ESdpQ096HBjdSoW3CKCxv oPzC2OoGXNfcQlgJfQ9x5 R7Oa3QQ8O2NS22AE75gWR ii0C5eIN8H6Mg QNLbwheikzkwwZP2AFDsF RDjaI81Be9ziFxzDb8iPI PlQPN8VNYsoBRnM6OcvH2 yOiAjMDAwMDAw K6MfyPPrUJqpV532ECngI fB5SURfocDcM6JfZDYblY wxOfO1l8U0Ue6JHOr4JV6 4GN98jDPmx7B5 bBF1F3UpEPFzvgkbreshh WA2KEIoHDBjjX95Kv7xhV pvCl2wGCLfNWY1QADyoFY pQ2BhiV4wWmYl SCGxODVnH8WoiMLuJBxzM 837XKsgPsU6BPJcriTkC4 SaGRNewYvlTnW2a3P6Kc4 COOMdYS21PRF5 fQB8AY89BJ14U1DyDptzr GFibGU+PHRhYmxlIHdpZH RoPScxMDAlJyBzdHlsZT0 iXu8xFFCyQEKu zDejjGZqZtHdm2fcGXQuJ HufIF8trQovG5SbuGM1VH Qzc5v4Ds52J87gS3OpqZY +LLQauAZ0eOF4 fZ6hHeViYzL8YMbsP403J mJumYIxHxzxw2smu7qtvG t1MbY1OVIiijMjvHitASO 4n4FwFs91P99t IHdpZHRoPSIxNSUiIHZhb Dmwsg7pmP9rWs2+PGNvbC R4lUG7lD5mDxDhXqH2ZZz nD454DwPjpYKh Xptso5ngj8cyjJx0IbZaH KBunySziNhnODA0w1HuLs 34Z8QroPjsn7DaUve8zu5 3oPNuu7N7fJZ5 I2CdRYTnuobkzYSmhDjtX L3xLYIhbhatTYIgeQ8xTW XnI4z5EkQmFtC3CEebN1N rmpH8UTWnyHSu MLrlEHT4H91sz6U4QDGwL RAgIVV3vMG9xT6ooHarvz ogbGVmdDsgdmVydGljYWw oZLhlC113NBLz vLgeRUMltX0sYTSlyASiw LtbIX1bQPIfrgecEhtJPW xJSEVSLCBTSEFZTEVFIEM 6M2KwBjy1SFIj sZynCD9rlUTeATdfIa3rg VqvnMexDB4uDDOhqgweXI ZvvA3wVKGfmUAcnBfkJC0 qHWUedsndd550 LyWjNMF6YVBcqAMtB6Kuz Y9dTsOgNUMbYRQaO4JnjY OkLYmfG873CBatNhN1ERY vlsAgD3ZoMALm rQpgRpQ2k6O7Eg4vRb9bM g1dEWkoRA39VT22wZCki9 F4qKG5J5VsWMNhhwxnuyx luTB8LEJlAHVk xN35yPQxBQxfCo6ac3E5w 231KYGeZLTjmI49Vb2blV lsTOUibULVoB6xsgryr9h vcjogIzAwMDAw YEd9WHk5SJWtlQahJyDfC OR0DfG0KVS1iQSvlU0lqP irhwskuF3jIum+MzAgWWV ozgS7X0ZbJia0 VEWktHxvHC2ggIBcPVlcL d6iaOrcpTwmSS8uPYYfcx jkCIZobV3bTHXtuMPqqLg uRJ3bWXPpxswr g594PlIuVFO6IBJawNNpD 3IgoD8zXlUqBLRgYCDlN6 UwpCKfVVxdY124PEgrQzC 9XKMolbCaS1Dy CNYnyYlaUbA7f7B0Ep6AB F0vaHI9S0AuHdf8KEAveQ nyQA1ocBUhBGxhFc4xrAs rtGneXF2eDHAx htydEAXunS5eISLuxPCrs IzmGN6iHYQhtoaab079Td KqJKZ7RXYtvOGvP1PfeP1 yOiAjMDAwMDAw R5KwcUDzZItiF145QTlfC xR0HWTbslQwX9PpWIJiwH xnXlM7l8Z6Vi7MfDJ8bAV 1m3F3Y3ZojYOn ZWC2MXF8qfzzoqw8K4LiV jwvdHI+DQ30GFVbPN35iW YgbZKix5irnVq6GyIbUHL iKMM2gPokQVha p5QmNQCdY23wrTPfp6R8I LMccGxojUCuJcOtyCZ1oF 1nVTkcldlbf3lmmbcmQtm xz7ttir28gI68 I86bKXdpFRFvMRTsLAYxD MRtzBkayi6voY7nRf0+PG FoeLX9cVR0eL8uGdFtCjQ 7SPpbS003KaHr yNJyAfohh7xid6dmoKo3M nGsXLLghdNraKfhFYX8j4 QsDr63U28kIRfiNMWsBIN yMCUiIHZhbGln ea6raF2oJn3+BG0zb8olv j61xG32dAI+COKsCAZ8hW inCQqhCCYjdF7dSFhdOjF 4INHkTmBkzK83 qFKrDWavWp8nbSkhyCyuT C7bMPUkemots722TyXrt8 bmYWXseFFhDJzyLAS6T66 xs3E6INEtHYHg VCC7gCB6sS8nsGiudhnei GVmdDsgdmVydGljYWwtYW tuC058UDIdnVtxFgXwgPB iV1vvpmPWWH8z OjwvdGQ+NXWeWGE2lRijT VknJGZnxS0iTGTiL6u2Po SmWwK2XRrrD5FdufH2WRM vbGQgMTBwdCBU zS6aufogs6bxwmgcRiMzZ NEqWVq0EBv0HLKugZekIl OnUJW6PsF3JGN9pUBxqJ9 keXasbxmdrP4v Oyc+RklOOjwvdGQ+PHRkI UB1bGinHKjqXFGydZ9zFD KxJ3y6ScZoZlY0VSyxW6O xfuP4LAKtmJRg WWVdsNEYrN1vzlijg6kfp rszFdKrGQJpAPf7PZu4VG ZgyCltJvKkFMI5ZyZ3HCM 3nNMqmW7yoMed djkcfP3jSca+TVJOOjwvd GQ+SSVmIUQ5eTvlQVvzFL HdpA0dXJAuZ5i2ZqQrCqH 2TSivC4WikhQ9 TWAkvTStHNUlcFDEyR4ke hmva6lcqnucZmFeHRAnNG d8NCy2SKDoqLzyWuZiUHV 0SiE4ETI6dMLl aZ2iuTvbrmcvkA7iIej+U HY4JFI8LB36AK84W6HsDy wvdGFibGU+PHRhYmxlIHd pZHRoPScxMDAl JyBz (more content not included)... Normal [facility] Main OR Intraoperative Recor don 10-23-2021 Main OR Intraoperative Record IntraOp Document Type FT Summary Primary Physician: Kameron Nova DO Finalized Date/Time: 10/23/21 10:09:17 Pt. Name: LILIANA MALONEY D.O.B./Sex: 1990 Female Med Rec #: [id number] Physician: Kameron Nova DO Financial #: [id number] Pt. Type: A Room/Bed: [facility]/ Admit/Disch: 10/21/21 07:43:41 - 10/21/21 15:35:00 Institution: Case Times FT Entry 1 Patient Times In Room 10/21/21 09:35:00 Out Room 10/21/21 11:58:00 Procedure Times Start 10/21/21 10:13:00 Stop 10/21/21 11:35:00 Anesthesia Times Start 10/21/21 09:35:00 Stop 10/21/21 11:58:00 Block Timeout w/ 10/21/21 09:06:00 Anesthesia Last Modified By: Blanca RN, Heike Torres 10/21/21 11:58:06 General Comments: Block info: performed by Dr. Sebastian with Jarocho RN assisting, HR 85, SpO2 98% RA 10/23/21 Chart opened to review and seend charges [facility]oth CSFA Case Attendance FT Entry 1 Entry 2 Entry 3 Case Attendee Ben CLERK SECRETARY, Blaise Nova DO, Kameron Rios RN, Heike Torres Role Performed CLERK SECRETARY Surgeon - Primary Gradall Operator - Primary Time In 10/21/21 09:35:00 10/21/21 09:35:00 10/21/21 09:35:00 Time Out 10/21/21 11:58:00 10/21/21 11:22:00 10/21/21 11:58:00 Procedure SHOULDER ARTHROSCOPY W/ SHOULDER ARTHROSCOPY W/ SHOULDER ARTHROSCOPY W/ POSSIBLE REPAIR(Right), POSSIBLE REPAIR(Right), POSSIBLE REPAIR(Right), SHOULDER BICEPS SHOULDER BICEPS SHOULDER BICEPS TENODESIS(Right) TENODESIS(Right) TENODESIS(Right) Comments Dr. Sebastian, instant powder supervisor Last Modified By: Blanca UNIVERSITY CONTROLLER, Dominique Rios RN, Heike Rios RN, Heike Torres 10/23/21 10:00:22 10/21/21 11:58:09 10/21/21 11:58:09 Entry 4 Entry 5 Entry 6 Case Attendee Jose Alejandro UNIVERSITY CONTROLLER, Lula Lambert UNIVERSITY CONTROLLER, Pb Bueno RN, Carlo Cadena Role Performed Scrub - Primary UNIVERSITY CONTROLLER/SA Staff - Other Time In 10/21/21 09:35:00 10/21/21 09:35:00 10/21/21 09:35:00 Time Out 10/21/21 11:58:00 10/21/21 11:58:00 10/21/21 11:58:00 Procedure SHOULDER ARTHROSCOPY W/ SHOULDER ARTHROSCOPY W/ SHOULDER ARTHROSCOPY W/ POSSIBLE REPAIR(Right), POSSIBLE REPAIR(Right), POSSIBLE REPAIR(Right), SHOULDER BICEPS SHOULDER BICEPS SHOULDER BICEPS TENODESIS(Right) TENODESIS(Right) TENODESIS(Right) Comments Block RN Last Modified By: Heike Rios RN, RN, Julie E Roth RN, Julie E 10/21/21 11:58:09 10/21/21 11:58:09 10/21/21 11:58:09 Entry 7 Case Attendee Heike Rios RN Role Performed Gradall Operator - Primary Time In 10/21/21 09:35:00 Time Out 10/21/21 11:58:00 Procedure SHOULDER ARTHROSCOPY W/ POSSIBLE REPAIR(Right), SHOULDER BICEPS TENODESIS(Right) Comments Last Modified By: Heike Rios RN 10/21/21 11:58:09 General Comments: Ofelia Georges, Arthrex rep Perioperative Protocols FT Pre-Care Text: Implements protective measures prior to operative or invasive procedure, confirms identity before the operative or invasive procedure, verifies operative procedure, surgical site, and laterality Entry 1 Procedure(s) SHOULDER ARTHROSCOPY W/ Patient Identity Birthday, ID Band POSSIBLE REPAIR(Right), Verified (select at Check, Patient SHOULDER BICEPS least 2): Participation TENODESIS(Right) Consents / H and P Anesthesia Consent, Operative Site Present Verified HandP, Surgery/Procedure Marking Verified Consent Surgical Site Yes Laterality Verified Yes Verified Procedure Verified Yes Correct Patient Yes Position Verified Availability Equipment, Implant, Prep Dry Yes Verified (If Medication Applicable) PreOp Antibiotic Yes Time Out Blaise Mayo CRNA, Given Participants Kameron Nova DO, Roth RN, Jose Alejandro Hamlin UNIVERSITY CONTROLLER, Fausto Pugh CST, Pb Guzman Time Out Complete 10/21/21 10:11:00 Outcomes Met? Yes Last Modified By: Heike Rios RN 10/21/21 10:14:54 Post-Care Text: The patient is free from signs and symptoms of injury caused by extraneous objects Allergy Information FT Pre-Care Text: Verifies allergies Entry 1 Allergies Reviewed? Yes Allergies Reviewed Self/Patient With Outcomes Met? Yes Last Modified By: Heike Rios RN 10/21/21 09:04:03 Post-Care Text: The patient received appropriate medication(s) safely administered during the perioperative period Surgical Procedures FT Entry 1 Entry 2 Procedure Description Procedure SHOULDER ARTHROSCOPY W/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 generally between 7 and 14 days after discharge from the hospital. You will be given an appointment card with your appointment information. Do not hesitate to call the office or the hospital if any problems or questions arise before your appointment. Kameron A. Brown, DO [facility] [address] [place] [address] Reviewed: [facility] Progress Note-Physicianon Progress Note-Physician Patient: LILIANA MALONEY Age: 31 years Sex: Female : 1990 Associated Diagnoses: None Author: Lukasz Sebastian MD Preoperative Information Anesthesia history: Patient History: No personal or Family history of problems with anesthesia. Re-eval prior to induction: Inital eval reviewed: No significant interval change. Review of Systems Constitutional: Negative. Cardiovascular: Cardiovascular risk stratafacation reviewed, 1 FOS without difficulty, No chest pain. Respiratory: No SOB. Hematology/Lymphatics : Negative. Gastrointestinal: Negative. Musculoskeletal: OTHER. Neurologic: Negative. Psychiatric: Negative. Health Status Allergies: Allergic Reactions (Selected) Severe CASHEWS- Hives. Doxycycline- Nausea. Current medications: (Selected) Inpatient Medications Ordered cefazolin additive + Premix Sodium Chloride 0.9% 100 mL: 3 gram = 100 mL, Soln-IV, IV Piggyback, PREOP, Routine, Start date 10/21/21 8:30:00 EST, 200 mL/hr, Infuse over 30 minute(s) Documented Medications Documented lisinopril 10 mg Tab: 10 mg = 1 tab(s), Oral, Daily, High blood pressure Problem list: All Problems Extreme obesity.. / SNOMED CT [id number] / Confirmed Amenorrhea / SNOMED CT 25292663 / Confirmed Labral tear of shoulder / SNOMED CT 890158162 / Confirmed Canceled: Status post labral repair of shoulder / SNOMED CT 597828222 right Canceled: Palmar fasciitis / SNOMED CT 669331665 dequervain's Canceled: None / SNOMED CT 618514457 Canceled: Fasciitis / SNOMED CT 99649670 PALMAR LEFT Canceled: Cubital tunnel syndrome on right / SNOMED CT 07708441 Canceled: Carpal tunnel syndrome / SNOMED CT 74103040 Histories Past Medical History: Active Amenorrhea ([id number]) Procedure history: right cubital tunnel release on 06/17/2016 at 26 Years. revision first dorsal compartment release of right wrist on 06/17/2016 at 26 Years. carpal tunnel release, left wrist. incision of extensor sheath first dorsal compartment, left wrist on 12/02/2014 at 24 Years. right carpal tunnel release. release of the first dorsal compartment, right wrist. cortisone injection into the left carpal tunnel. on 08/07/2014 at 24 Years. Shoulder repair ([id number]). Comments: 07/24/2014 11:58 TALI Parry RN, Nova right labrum Repair of ankle ([id number]). Comments: 07/24/2014 11:59 TALI Parry RN, Nova left Social History Social & Psychosocial Habits Alcohol 11/25/2014 Risk Assessment: Denies Alcohol Use Substance Abuse 07/24/2014 Risk Assessment: Denies Substance Abuse Tobacco 07/24/2014 Risk Assessment: Denies Tobacco Use . Physical Examination Pain assessment: Self-reports no pain. Airway: Mallampati classification: II (soft palate, fauces, uvula visible). Distance: Adequate. Mouth: Adequate opening. Neck: Full range of motion. Respiratory: Respirations are non-labored. Cardiovascular: Regular rhythm. Neurologic: Alert, Oriented. Review / Management Results review: No qualifying data available . Plan [place] [employer] Anesthesiologists (ASA) physical status classification: Class II. Anesthetic Preoperative Plan Anesthesia: General. , Regional block for post op pain control., discussed the benefits of obstaining from tobacco products. Anesthetic plan, risks, benefits, and alternatives discussed with the patient and/or family. Patient verbalized understanding. Pt agrees with anesthetic plan and accepts all risks including but not limited to; Bleeding, infection(including Covid-19), nerve injury, dental injury, eye injury, headache, low blood pressure, serious problems with the heart and lungs, allergic reactions, failed block and .. Normal [facility] Comment on above: Result Comment: Elec tronically Signed By: Romulo SOUZA, Lukasz\.viktoria\Date and Time Signed: 10/21/21 16:21 EST Consent for Procedure/Surger yon 10-20-2021 Consent for Procedure/Surgery [id number]# [id number]:[id number] Normal [facility] Coding Summary.on 10-19-2021 Coding Summary. [id number] G h0bWw+PGhlYWQ+IM7RRBZ qV90mhYWhyN9OK8sASL0U ETPJJOHOJL8EII0dvVP4M NpnF8GvgpWp VjxqyZMcLC85UQb9HVQ8e SspCPpukH4awPBbJ7o3Um DyBU67jC23YSeqZAJdUqF 3LjZpbjsgbWFy L7mmByYfeLTuCku+PHRhY mxlIHdpZHRoPScxMDAlJy NsoYhnQN2pUh3eGSZqIWU vbGxhcHNlOiBj h3txBTTyDWggTT1nuQynE 5ByiMH8XDDzc4x4In61lB I+HPZwEJX9gDnrDYmbj86 5QjIip3zzKRJ4 oVXdYLleKZU7I19fx6H4A ERqNYXfQSC1dGG6zG3crT cjeqzbL2RfuBCgKrF8UCZ 0mPMafB4fmSeg yuvgzM5rSgq+H91QIW1QE LIYSB4RRue4H9EnMcojkK I+RL93LSXqKM98jBYewJB do2ymkMz6QfDq CQEvRST2wTbnZKhud2IzE PGiC14zeANpz5M1PUXwnC zkhAAqCqCeuWW2gO7sEXi aitxxg0gapaxq Xvifg8bnfa24xN87G58eP YypOSCiOBK7EQGkNMOmvL kaod3euS2iKf6+YDupz6f kf2bzaEu7SbNf NFVuedQhbXkaPBA8u7BqD v47R4XhsFnqv6ZmPob5lq 47zYGgl3J1iJM2YFizNXE maI8pUCcbSdM7 ACSvTsSdaD79eCFdWWmmE e9ggAjfaTmqOL7qEKYbfq jgKOCbbB3hKMWkfTOpiNk sKI2sKAEqmjfy h940PgFzHXP0VBYfeTTxQ 5DzqW2xHlYoMEFmXWBmN9 BnrVKaSDiaC706TMaaSrV 7MUVrplAzL0Jm YCQjwHndNnP8l0A6Zi8Ve 7IleahoNSW1NRwhOIIzPg T0EvEaBrK6Z2MqGzp7IJW trQxxDU9hV9Hz BLJljojtzzsmaFE2HYOsL ACvmO96mEKoKVcyPi3zm5 O8i732ACZiXNHlpS83Oo4 udDogMTBwdCBU hP6otegbf1wlvxbvQyDiW UBvESh9NAr1ECAinUwoFp FvBSF4RfP3CNT9rCGeoO3 irEixptomcB7k Oyc+J88yqR6kBWU3TIU2l ejwEVCrcjPnZL24JT01N8 RyPjwvdGFibGU+PGRpdiB lmPkvOP3aDnBc z6zmi7DnFYvgA5BbTBXcS TgeQdt1LVQdVNO1zGU0cJ 7aDCGbTZalz6U6gFO9X0D qbhWkgs2db8fg QADgMMhyH20bvNVxx7U5G RImbIJ8EKZubXdpFdIuyL 93Oyc+XFQefXxlg8HbTfr qv3wmd7avwHm7 GvSoVHCeixLxmJvwWFW9t 2CtYd12Q56iYHieQRWeBU VpOGTfVUNqmWyivw4bsZ3 wIi8+PGNvbCB3 xED2wA7wSCZeFbQ0YKihN 646WeYcgUDvJvszj8jkw9 jctBr4AbGbEHCbzpUjhFt wLXN5j5ByLd20 P90qADdyOCJbBRHeAQDbT RWqrKmhsp4bmH2xNg5+PC 3zd7btgf80yJ58iNT+PHR eAYY3yKegTWuk UNLsqH0oJEzjTcH1WZDbU aUeuI40uBKzSZcuDp2paO qzpTayBA0vNCRousfrv67 5WkGim6eaJRCv hMBqVEgwEJB8U59lx4M5F WIfKIJeAJS9sLN5kZ0qyE lnbjogbGVmdDsgdmVydGl sDDtePPnpD863 IHRvcDsnPlBhdGllbnQgT vZtWUm3E7TvTyr2IMAcrP lcVQ2kxZGeTPlyPd2rmDs fmBuxVO7bKVEa gsbbx774XgLjp8szMOKjs PRwYAflOSA0R51vh2I9GV GdOIWdRHQ6qEV5yE1fsTi nbjogbGVmdDsg cpYuoIhqDXqgKAnfD532X HRvcDsnPkJpcnRoIERhdG W6OY07UI04sBWub3Z8iKD 6S2FrQQNjvafu iunanZO9NZHlQEWeaR88F x4nfAjpXb4uNOZoNZI6DW IfgFLrT0KqoV4pBxWnXMF dRWKoN9YusVVt XQkiM242ZXpjTsC1HCRko fAhQ5PwVYLjwQpdPsV8o6 P2Tc7KU2K2OA81DG96qCW au6U7gMC0T4Gb BDVmtkfyobkcrHX1FMFmQ NPfyR84Wo3diPewQe3hBC HdEPQ8JVUjxMMkI5IddA2 yOiAjMDAwMDAw H1ItzFViZAjzV914EEebG eI6VPAlxfGbE7RzOZLxcJ yzLiX9t1T1Lc8BOQj6HZ9 8KS34vCHxq2U6 uFH3S0IwAHSfpbjdrfywm ES7LKQpYNHzsR54Ld4uiL moKx9gKAXpTKR4IEBbkLW pG8KyoM9rPxFp TQShTYDyJ9AbyLZaAZgjX 742KGryFyP9KUJdhnDuL0 AePLVtrKxuInR2t0B6Ls8 LXIClEB83SWE5 tFW0JE07YP82H5LnXskho GFibGU+PHRhYmxlIHdpZH RoPScxMDAlJyBzdHlsZT0 tPa1cQEBlGTBk aQtiyPDtQzCno7npSZMbH JveBJ0kvYulH2XjoRY0NM Twd5n2Lt56X10mZ4HyzVS +OSMhrHX2iQK3 zB4jHmIdWoT9JSavB588J aJymFWgGevpd0xbe3yhaR e4SaT4MUYxwbZopWngZKN 3r6VuGj34F93f IHdpZHRoPSIxNSUiIHZhb Yyfyv9rlL1lQu3+PGNvbC O6lHE3gS6kWwHrBvO3LEb dY071RyRoyYQu Jnhtg6ket3uwjLi6LsRjI LGfllEzcOrrZCN8q0EdBu 52E2XfqXszz5KzIuz7dz0 7fBVco2E7pLG1 G9MlGUUqebpuoKNbgJzvK Y2dRLMwtbenZQOahS8cQE PcP9z8EkNnDxO6IXvaK8I kmrO7RNCwfIMv OHanWQG5G96ow1L4PTSgI HLgKFC4dTE1zF9fbTldif ogbGVmdDsgdmVydGljYWw bQCubK075AFPi tTroVZZerG7yXOUtyXWjo HlqBI6kUZQjqipvJdbQZQ xJSEVSLCBTSEFZTEVFIEM 5W6GeOuu6IBIq cCwxHD5caZXnJMoaJh7yd ErsyJpuCN7iTFWrundlNF QpjU5rKCPemHBiaOtiEB4 tSKCcunnhd913 PfQzYWQ3FDKbrKBrU8Khd G3iAmMlRZOjPEFtI5QowK LoBXsbG264MWjdFoN4JJN hglYpG8TnDVKq rRpoBlP4z4P0Gf0lVz2jZ j0xJHnoRF32DS78jRTyh6 G6mKW0F3MaLTCvrzbyhsz csZU1KTWcCJRk jT69cERxCPmiHg7wi3C8m 721UAXiIQTyvD28Oz2byF roGACqyAXNqX1kttyow9r vcjogIzAwMDAw FYk0WSn0NETinObeOeLxH UC0KcX7NXV4qBEfmD8qlA oeuoybpH3oTjk+MzAgWWV cwhD5V8CxLbr4 HZFawWsaCC3yjPNnEFoeP e4opLbpcXmjZS6lIXCjya amKVQnxU7yPHSmzCQlgId rZG2kMBEjxmig v420IpViUWL8KUTucRRnR 1KpkI1dErNuTJGrPFQkC8 RwqWBeDXytP206GIatGfI 4OVDkqiQfN7Ty GKWdpTrbWyQ6t7A7Wc5FM B0aeKE6P2EuGuv8SHPrqF ruNP8utCGfAPvcWo2pnYm agVdsZY6oZNNa qkmlQHTocK0mJYYmtPWrx RsbHU9tLFZdjharz509In YdYTN8DSPmfXShM1IroE8 yOiAjMDAwMDAw A1EpkODlIMxrB197DSzuK lB9VTRtqeKnO0XiELJfcX rfEzA5t9C0Sm6WmLGwLUP pME80RH66VJ21 V9BnDtvoyBIllRN+PHRhY mxlIHdpZHRoPScxMDAlJy FxsMgdKC6uEa2jECVtJUT vbGxhcHNlOiBj y0xvBBGyOPwqVN6xpJlmA 2NanZC4PGXhn6g2Jn13I4 6uC4LrfRO+DGPewFO7wSM 2nL7cIfRjCmI1 EBdeQ349XpLybIJtSdbqs 3spo4iviWq6PfKlGNRjwi NphOorNZT1k7OeGf37Y53 sIHdpZHRoPSIy WWEzDTTdkEyonm7dyE4hV i8+YINnpHY8eKC7jT8lAt EkQwB3JHgfK728FtAimUR rXqkwD13aE6Dg dXA+JFJbMeu4ZZFtsSkyS M9apZCoSGdaWq5wTWP3Lh TaIwOjHEmaU6FwJKBcxok vatznaWS4YNXu QRZtbU71Wc7nxAjgXz4lJ XAhUCJ2GHWthRReG7YpdK 2qFgMdLUXcZRNdP6EveYO uXFqkB604ZImv AcK7OGUzmdBoW3DlCGFjg MsvNtX9n6C0Hv1ZlTufcF EqFZ3oGiOhHQz4U1LeHyq 8BPGsdBkwVA9d dTUbBAfaJy1wcVlueYbxC Q9aDORyoswby998SjKll3 awYRTllLOyKPibJQZ0Z51 mj1T4WXZyCXHc CNW5wXE7oI8gaKdqwaege GVmdDsgdmVydGljYWwtYW xjQ947OQYykSktChNNGcs 5M5ElHjm3UVPe zBdnIY4lmPMjTBgzSd4nv UiuaRllJV4uKSBiadrvy4 26QlJlw2faKUEmgLUzLUp qZIM2J93ht1D7 RUBlIJMfBVR1oTP2kF6rb GlnbjogbGVmdDsgdmVydG egWHhzVMlsT701XRSevXq pYl8BWou8Q7As Wra1TSQprHblUV9twJYkS YhkIb4jjHzznUjiFU9yVD Yvplhow985EtCyb0paTEU wcHQgVGltZXM7 A11kp1N9QMNcMXDgZTC0e GF4zT9nhJbhaggocPPicO uvhqWonDfdNHfeYFahB61 6IHRvcDsnPlBh eWVyOjwvdGQ+VK22zu06C 9GvOlqeZhz0REDpAXC2qR B5zL1vMHRvYHxbj5P0fBN 4J6IqicGevz0k b2xs (more content not included)... Normal [facility] BUNon 10-13-2021 Urea nitrogen [Mass/Vol] 12 mg/dL Normal 5-21 [facility] Comment on above: Performed By: #### 2 [id number], [id number] ####[facility] [address] [place] [address] CBC w/Indiceson 10-13-2021 Erythrocyte distribution width (RBC) [Ratio] 14.0 % Normal 10.9-14.2 [facility] Comment on above: Performed By: #### 2 [id number] #### [facility] [address] [place] [address] Hematocrit (Bld) [Volume fraction] 38.0 % Normal 34.0-46.0 [facility] Comment on above: Performed By: #### 2 [id number] #### [facility] [address] [place] [address] Hemoglobin (Bld) [Mass/Vol] 12.5 g/dL Normal 12.0-16.0 [facility] Comment on above: Performed By: #### 2 [id number] #### [facility] [address] [place] [address] MCH (RBC) [Entitic mass] 27.0 pg Normal 27.0-34.0 [facility] Comment on above: Performed By: #### 2 [id number] #### [facility] [address] [place] [address] MCHC (RBC) [Mass/Vol] 32.8 g/dL Normal 31.4-36.0 [facility] Comment on above: Performed By: #### 2 [id number] #### [facility] [address] [place] [address] MCV (RBC) [Entitic vol] 82.2 fL Normal 80.0-100.0 [facility] Comment on above: Performed By: #### 2 [id number] #### [facility] [address] [place] [address] Platelet mean volume (Bld) [Entitic vol] 8.0 fL Normal 6.4-10.8 [facility] Comment on above: Performed By: #### 2 [id number] #### [facility] [address] [place] [address] Platelets (Bld) [#/Vol] 236.0 E9/L Normal 150.0-500.0 [facility] Comment on above: Performed By: #### 2 [id number] #### [facility] [address] [place] [address] RBC (Bld) [#/Vol] 4.6 E12/L Normal 4.3-5.9 [facility] Comment on above: Performed By: #### 2 [id number] #### [facility] [address] [place] [address] WBC corrected for nucl RBC Auto (Bld) [#/Vol] 10.1 E9/L Normal 4.0-11.0 [facility] Comment on above: Performed By: #### 2 [id number] #### [facility] [address] [place] [address] COVID-19 ([facility])on 10-13-2021 SARS-CoV-2 (COVID-19) RNA BRIT+probe Ql (Resp) Not detected Normal Not Detected [facility] Comment on above: Result Comment: This test result should be correlated with clinical presentations and medical history by a healthcare provider to determine its clinical significance. This assay was performed by a reverse transcriptase real-time polymerase chain reaction (rt PCR) method on the [employer] system. This test has been authorized only for the detection of nucleic acid from SARS-CoV-2, not for any other viruses or pathogens. This test has not been FDA cleared or approved. This test has been authorized by FDA under an Emergency Use Authorization (EUA). This test is only authorized for the duration of time the declaration on that circumstances exist justifying the authorization emergency use of in vitro diagnostic tests for detection and/or diagnosis of COVID-19 infection under section 564 (b) (1) of the Act, 21 U.S.C. 360 bbb-3 (b) (1), unless authorization is terminated or revoked sooner. Performed By: #### 2 [id number] ####[facility] [address] [place] [address] SARS-CoV-2 (COVID-19) RNA BRIT+probe Ql (Unsp spec) Pass Normal Pass [facility] Comment on above: Performed By: #### 2 [id number] ####[address] [place] [address] Specimen source Nom (Unsp spec) Nasal Normal [facility] Comment on above: Performed By: #### 2 [id number] ####[address] [place] [address] Consent for Treatmenton 09-23 Consent for Treatment [id number]#1. 00CD:127 Normal [facility] Consent for Treatment [id number]#1 .00CD:127 Normal [facility] Creatinineon 10-13-2021 Creatinine [Mass/Vol] 0.6 mg/dL Normal 0.5-1.3 [facility] Comment on above: Performed By: #### 2 860503, [id number], 1381571, 9253889, 1518108 ####[facility] [address] [place] [address] Glucoseon 10-13-2021 Glucose [Mass/Vol] 152 mg/dL Normal 55-199 [facility] Comment on above: Performed By: #### 2 655896, [id number], 9996530, 8497699, 9771593 #### [facility] [address] [place] [address] Lyteson 10-13-2021 Anion gap [Moles/Vol] 13 mmol/L Normal 6-16 [facility] Comment on above: Performed By: #### 2 375764, 55451575, 7537363, 7302365, 5367039 ####[facility] [address] [place] [address] Chloride [Moles/Vol] 102 mmol/L Normal 101-111 [facility] Comment on above: Performed By: #### 2 991263, 79592032, 2580717, 8359057, 1035431 ####[facility] [address] [place] [address] CO2 [Moles/Vol] 25 mmol/L Normal 21-31 [facility] Comment on above: Performed By: #### 2 484455, 52642828, 4683735, 4923501, 7736164 ####[facility] [address] [place] [address] Potassium [Moles/Vol] 4.1 mmol/L Normal 3.5-5.3 [facility] Comment on above: Performed By: #### 2 037097, 94714312, 7065148, 7890414, 8067859 ####[facility] [address] [place] [address] Sodium [Moles/Vol] 136 mmol/L Normal 135-145 [facility] Comment on above: Performed By: #### 2 910836, 92822953, 1295641, 8818024, 0537391 ####[facility] [address] [place] [address] U BetaHcg Qualon 10-13-2021 HCG.beta subunit (U) [Moles/Vol] Negative Normal [facility] Comment on above: Performed By: #### 2 [id number] ####[facility] [address] [place] [address] eGFRon 10-13-2021 GFR/1.73 sq M.predicted among blacks MDRD (S/P/Bld) [Vol rate/Area] mL/min/{1.73_m2} Normal >=59 [facility] Comment on above: Order Comment: Order added by Discern Expert. Result Comment: eGFR is race adjusted. AA=. Performed By: #### 2 549647, 18621589, 4172631, 6441305, 6856117 ####[facility] [address] [place] [address] GFR/1.73 sq M.predicted among non-blacks MDRD (S/P/Bld) [Vol rate/Area] mL/min/{1.73_m2} Normal >=59 [facility] Comment on above: Order Comment: Order added by Discern Expert. Result Comment: Head Shipper jabari kidney disease could be indicated at eGFR's of less than 60 mL/min/1.73m2. Kidney failure is indicated at less than 15 mL/min/1.73m2. Performed By: #### 2 105366, 13622883, 5519760, 4903726, 1979823 ####[facility] [address] [place] [address] COVID-19 ([facility])on 10-12-2021 ADMITTED TO INTENSIVE CARE UNIT FOR CONDITION OF INTEREST:FIND:PT: NO Normal [facility] Comment on above: Performed By: #### 2 [id number] ####[facility] [address] [place] [address] EMPLOYED IN A HEALTHCARE SETTING:FIND:PT: Unknown Normal [facility] Comment on above: Performed By: #### 2 [id number] ####[facility] [address] [place] [address] FIRST TEST FOR CONDITION OF INTEREST:FIND:PT: Unknown Normal [facility] Comment on above: Performed By: #### 2 [id number] ####[facility] [address] [place] [address] HAS SYMPTOMS RELATED TO CONDITION OF INTEREST:FIND:PT: Unknown Normal [facility] Comment on above: Performed By: #### 2 [id number] ####[facility] [address] [place] [address] HOSPITALIZED FOR CONDITION OF INTEREST:FIND:PT: NO Normal [facility] Comment on above: Performed By: #### 2 [id number] ####[place] [address] STATUS:FIND:PT: Unknown Normal [facility] Comment on above: Performed By: #### 2 [id number] ####[place] [address] RESIDES IN A [facility] CARE SETTING:FIND:PT: Unknown Normal [facility] Comment on above: Performed By: #### 2 [id number] ####[address] [place] [address] Physician Orderon 09-03-2021 Physician Order [id number]#1 .00CD:127 Normal [facility] Physician Order [id number]#1 .00CD:127 Normal [facility] Basic Metabolic Panelon 07-23 Anion gap [Moles/Vol] 10 mmol/L 9 - 17 mmol/L [facility] Calcium [Mass/Vol] 8.7 mg/dL 8.6 - 10. 4 mg/dL [facility] Chloride [Moles/Vol] 105 mmol/L 98 - 10 7 mmol/L [facility] vidIQ CO2 [Moles/Vol] 25 mmol/L 20 - 31 mmol/L [facility] Creatinine [Mass/Vol] 0.46 mg/dL Low 0.50 - 0.90 mg/dL [facility] GFR >60 >60 mL/min [employer] vidIQ GFR Non- >60 >60 mL/min [facility] vidIQ GFR/1.73 sq M.predicted MDRD (S/P/Bld) [Vol rate/Area] [facility] Comment on above: Average GFR for 30-3 9 years old: 107 mL/min/1.73sq m Chronic Kidney Disease: <60 mL/min/1.73sq m Kidney failure: <15 mL/min/1.73sq m eGFR calculated using average adult body mass. Additional eGFR calculator available at: http://www.[employer]/multiple_crcl_2012.htm GFR/1.73 sq M.predicted MDRD (S/P/Bld) [Vol rate/Area] NOT REPORTED [facility] Glucose [Mass/Vol] 143 mg/dL High 70 - 99 mg/dL [facility] Interpretation and review of laboratory results Abnormal [facility] Potassium [Moles/Vol] 3.9 mmol/L 3.7 - 5.3 mmol/L [facility] Sodium [Moles/Vol] 140 mmol/L 135 - 144 mmol/L [facility] Urea nitrogen (BldV) [Mass/Vol] 9 mg/dL 6 - 20 mg/dL [facility] Urea nitrogen/Creatinine (Bld) [Mass ratio] NOT REPORTED [facility] CBC with DIFFon 08-17-2021 Absolute Eos # 0.10 [facility] th Absolute Immature Granulocyte NOT REPORTED [facility] Absolute Lymph # 2.10 [facility] alth Absolute [place] # 0.80 [facility] lth Basophils (Bld) [#/Vol] 0.10 10*3/uL [facility] Basophils/100 WBC (Bld) 1 % 0 - 2 % [facility] Differential Type NOT REPORTED [facility] Eosinophils/100 WBC (Bld) 1 % 0 - 4 % [facility] Hematocrit (Bld) [Volume fraction] 34.0 % Low 36 - 46 % [facility] Hemoglobin.gastrointe stinal spec 1 Ql (Stl) 11.4 g/dL Low 12.0 - 16.0 g/dL [facility] Immature Granulocytes NOT REPORTED 0 % [facility] Interpretation and review of laboratory results Abnormal [facility] Lymphocytes/100 WBC (Bld) 26 % 24 - 44 % [facility] MCH (RBC) [Entitic mass] 28.7 pg 26 - 34 pg [facility] MCHC (RBC) [Mass/Vol] 33.5 g/dL 31 - 37 g/dL [facility] MCV (RBC) [Entitic vol] 85.8 fL 80 - 100 fL [facility] Monocytes/100 WBC (Bld) 10 % High 1 - 7 % [facility] NRBC Automated NOT REPORTED per 100 WBC [facility] ealt Platelet distribution width (Bld) [Ratio] 14.4 % 11.5 - 14.9 % [employer] Platelet Estimate NOT REPORTED [employer] Platelet mean volume (Bld) [Entitic vol] 7.5 fL 6.0 - 12.0 fL [employer] Platelets (Bld) [#/Vol] 233 10*3/uL [employer] RBC (Bld) [#/Vol] 3.96 10*6/uL Low 4.0 - 5.2 m/uL [employer] RBC (Bld) [#/Vol] NOT REPORTED [employer] Segmented neutrophils/100 WBC (Bld) 62 % 36 - 66 % [employer] Segs Absolute 5.10 [facility] WBC (Bld) [#/Vol] 8.1 10*3/uL [employer] WBC (Bld) [#/Vol] NOT REPORTED [employer] [facility] PO[facility] HCG, Prenancy, Uron - NOT REPORTED [employer] Beta HCG ( test) Ql (U) Negative NEGATIVE [employer] Comment on above: HCG screen is sensitive to 25 mIU/mL. However this test may flower buncher or picker lower levels of HCG. If further evaluation is needed please request quantitative HCG. [employer] Fluoro-Guided Inj, Shoulder, Righton 08-07-2021 Fluoro-Guided Inj, Shoulder, Right CLINICAL HISTORY: Right shoulder pain and limited range of motion. COMPARISON: Right shoulder radiographs 06/01/2021. PROCEDURE: Informed consent was obtained. Sterile technique, local lidocaine anesthesia and fluoroscopic guidance was used to place a 22-gauge needle into the right shoulder in the usual fashion. Approximately 1 cc of Isovue 300 contrast was injected to confirm intra-articular positioning. Approximately 12 mL of diluted Isovue contrast containing 0.5% of ProHance gadolinium contrast was then injected. The patient tolerated the procedure without evidence of immediate complication, was transferred to the MRI suite in stable condition, and subsequently discharged with the usual instructions. 3.23 mGy of fluoroscopy was used, with 1 fluoroscopic still saved. No diagnostic images were obtained. IMPRESSION: RIGHT SHOULDER ARTHROGRAM FOR MRI, WHICH WILL BE REPORTED SEPARATELY. Report reported and signed by Nuno Peralta on 08/07/2021 1524 Normal [facility] Follicle Stimulating Hormone on 06-29-2021 FSH 4.4 U/L 1.7 - 21.5 U/L [facility] Comment on above: Reference Range: Male: 1.5-12.4 Ovulating Female: Follicular Phase 3.5-12.5 Ovulation Phase 4.7-21.5 Luteal Phase 1.7-7.7 Postmenopausal Female: 25.8-134.8 Luteinizing Hormoneon 2020 LH 9.5 U/L 1.0 - 95.6 U/L [facility] Comment on above: Reference Range: Male: 1.7-8.6 Ovulating Female: Follicular Phase 2.4-12.6 Ovulation Phase 14.0-95.6 Luteal Phase 1.0-11.4 Postmenopausal Female: 7.7-58.5 No Panel Informationon 06-29 [facility] Prolactinon 06-29-2021 Prolactin 9.42 ug/L 4.79 - 23.30 ug/L [facility] Comment on above: The presence of macr oprolactin may cause interference in female patients with various endocrinological diseases or during . [facility] T4, Freeon 06-29-2021 Thyroxine, Free 1.21 ng/dL 0.93 - 1.70 ng/dL [facility] TSHon 06-29-2021 TSH Qn 3.26 m[IU]/L [facility] Coding Summary.on 01-14-2021 Coding Summary. CD:[id number] G h0bWw+PGhlYWQ+OO9NQVM aW48eeSZueL9ZH3eVID3K AMQFWOIRKR4GZS2feEE1S LfaX6IfvqFj QhupdWHgDF48HIr2MFT3g RkxCWhwzW1poRRwV4l0Vk UnEO08xC26EAqnNFLfJdG 3LjZpbjsgbWFy R2fzMhWudRMbInp+PHRhY mxlIHdpZHRoPScxMDAlJy CgyJfbDQ3lOz8qINRmWNG vbGxhcHNlOiBj h6xbRHVkXBgbYQ7dkIwqQ 1BnnHA0HSAmx5w4Sg72zB I+WYJvNEI4rJqsRWxxf42 1BhLdl5sjSJU1 jRLgTUwnLME5B13ur6F4F CBcEWPeAVA4dYR9pU6aaD jsmlqrQ3ErrSFjFeT2NUF 0oOYakL8rdSyr xigcvX2aTml+M43ZAO3JJ VCBRP4VRfs0F4TlTtiuyQ I+II51VLCsGM82hNLtlAW wb6iwlFy0XzHy XDHaJBB6fKabQAwtn0WtY VGaA18ibNQhv2Q9KWMbgH yeuNNhXjYcqXL1tU4rXPr gphqox5rryznq Orvrk6gcqj98tJ77Q67vU UsyZTSdHXG2QIQmBEHkcC mffh2kdX5yHp2+BNdmk1c gr7jmqWf9CeXz NISnnmFbpKbmIJQ3a7GgM p87V0FvcCbng2ZrOli3gz 16zKLou9E1vHN0CQqlQQZ woS3xAFkdZrN8 UMQeBfUljV12fYVcVSynQ t7sxYsblVoxRW9tBVXqtd fbTWYvtU6nRZGhqHOniVm pGG0pKGMzqekq s786GlAqDKA6PPWwuYZtB 1IiiK5sZdVoCJOdNDZwT5 MybIKuLMjiV943TEuhGfT 7JMDjigGsV0Rx BDGbrCljTpQ6i6V4Ax8Ee 4XhueveUPO8VTbeMXY4Dc F8ZoArGnQ4V3CsDqw2AXH loOopRV6xC9Bf GLHjzwwgtmnfwMG6DYWpG VSabB18nRDcZTsxHm8cb8 N4s397TSSiXZGybE22Ck9 udDogMTBwdCBU rR5qehlhj8vfdbyoEtTuD GAtQLh7FMh9UVVisObhLy OwOUN4CwF8ODX7cFMmgF9 yvOgqllwkbV1z Oyc+J37oxN1kZYA9UCC4u uglEGWfzfTbQI91MB89G9 RyPjwvdGFibGU+PGRpdiB bhBybWL5lPdUp y2een7QlYKopY0YjPSNaY TrmEvz3LMHoSPD7wWI3uF 2eAKLyUOfdh4X7tUP6L6L bzeIwbe0ji5bx CBEzXSesE49wtYIlm2Y2J QFgtIE8DLMndXybEqIhmF 93Oyc+EWLsdDdeb9MwCvv eo2zyy0ztxLq7 AiAxUWHwssXxmIsyBIO9b 2QbHx97J77dISluQMIfRU LtZNNiVEIxdJlyye4ksO9 wIi8+PGNvbCB3 mKK9fT4oUESoDlM6MGtxC 378JbGprPGwTnxch3zhi8 hlsZp8IxGfZYIkziCqqUa cVAL5p5TqYe40 J45nWXovYNSxAPVbWFLoI TJwoOthdz7inM9cYv0+PC 5df5gbdh42wX60uKI+PHR qPWH4tXbvYDlh ZOXgxK7kJXzxIoH4ECJaY bVohI20tNCpTQvyZd3qxY rynOytJC9eREPixlgvi19 5LwDam5leWGQu hUKnCSefLPY8U31dr4X8N QHaQEOkKBZ6vGS9iD0dwO lnbjogbGVmdDsgdmVydGl jRRayVEpnB362 IHRvcDsnPlBhdGllbnQgT lPiFAf2Y8YvOag7ZVXcjJ jxDG4twWJcANiuIf7ahGy prTggGE1dBXBa olcno559GrYcn8fmRZJnn RDhDCefFZU6S59im1U9NJ EsWWDoBRD1qPS2gF5tiBc nbjogbGVmdDsg geJilOdaPMcuHOjaG331I HRvcDsnPkJpcnRoIERhdG Z5CL88QQ28zPPei5J1aWD 5F1GrZPNprkbw wagbyZM4SKPjCPVliL47Z c9rpUekWr4bNBDdKPB2RK UgyCZaZ8AscC3dUdPvRRD mKAOxS1ElnZDe JCpwT586WFmiPvC2JJSua fKrH9GlTAQuuNgtLnL8u9 I5Wp8UN8Q4KO38OE90nYW qp8J4bRB0F2Mr APQantwjawpqtCC9JNUaY VKybV40Xf9xbVjvXt6yIU UhJLQ7NZHivNBeY3BozK4 yOiAjMDAwMDAw U1KpiMEeKXqgG711NRrhT pG0XJVzkjJhO2KrFSBgcA fcOpK9v8K2Dc9ZLMp0BH3 9LE00vXPvg2S3 tEV0E9VwZVJvqzqeuxvfo KR7UIXhXKWsuC11Ly3dcX naNl5qDTXcLXK2LJKhtIA dS6YftR6xOkPs DXSvCBOlX8CbzJFrMJmmL 714DChdBhR3FZOekvWtF8 DoGYCntFkzRhC7x3V5Cr8 GZKJeOW63DWD6 mGG0UC64ZY17X9JfKsdyv GFibGU+PHRhYmxlIHdpZH RoPScxMDAlJyBzdHlsZT0 hFf3cPSEcBKBn iAhexDVyPkZnv1yzTMJyU CkfSA0ndBrcR7LojCA8UQ Fpq5f5Aq14E68eY3NpwUQ +AEDbfAF8dKG2 uS8hViYqYeT3PRekH351S xMkgGAwFaeno4ifx3ekiX u7DsU7AIYjxcLyqQdtCDA 4p6PmUk21I96c IHdpZHRoPSIxNSUiIHZhb Ppkqo9bhK8lIz5+PGNvbC K7yBO5lQ5fZfCzFxV8PIm uS020UdDpnLMa Nuxgj9zgv3eggEt5QpWbR KOwtzLxhAsbEWJ1c3OzBb 13W9BbfJtdu4QdIdj5bv0 9lWPjs3E2uZB9 N0MoZCRfuuriaTGhfJphF I0cHNYsxwacULCpfR2rFQ NrC0g6MeAjLfM6AHhbL4C dmrL1TBMltZGm AVokHAF2Y48zr5L5DTAzL ZBmUZO1cWM4wX7zlEvzgy ogbGVmdDsgdmVydGljYWw nQVcdZ725YYCv uEvhLHUmfN6fGPIxjJRuw TkqRT8ySNUypjkyNuiHNW xJSEVSLCBTSEFZTEVFIEM 4E5JjAuc1LDBg aEllBP2quMXwIKlcXu8yw PnhcXvwSG7cPYBwolocSW VhaQ1iGPFwaYGgiGvkMR0 fZYNtfmvpa760 QxUgEOF5XKTftCRmI2Wci Z8mUmBuGMTbVLWdL9PbiI BbRArmN709VFjtZxC6QAM nvyFwB4KzDKOz aBxfJvF9f4Z7Fo2oBz6xQ u1gGMrlIU11ZI16yQGct0 N1gXJ7D1EpUMUbnkdoucw bqOK7ZIAyHIIf wD91kXEcFTvdWb6oy6O6n 174GGXbOFMuuR16Ec5blL psOLJpdYCHkD1juxtem2g vcjogIzAwMDAw VKw3DEr3NHYfzWqlIxBaN CL2StC6QXS0nVKsgW7heJ ykbtvwxB1aNot+MjkgWWV vznR7L6GsNwc6 ODXqnMyyNU7kgQHpPSqiE w8qdFjtyNlgUJ3mAIAkml aoJUYnxB2cEXYftTQwgPz vCD0lEEIphled t763XhHdIXG4PNSkvHErV 2JkoF0zKpXxACUcJQLnY1 XtnREuPCmqF242HBlsTlR 0DJPxarZzD7Tb JDCtfIsnFbL7d6Z6Tl0FN Y8hxFX5P7McZgz1BIUukE ltKT4uqLRmOSdcGt6hpUg xyEnvWS5lVWDs eltaUQLsaS0uTURnoINrc FseXB5iUPWnzanti020Ja HoEAE5VRHbfQIeQ7KjhP9 yOiAjMDAwMDAw H5IgqFTwNXinF568RMlpD cF4OTCaaiYzA4CoQSMxoS kjKkI0k7F2Va0MdFYrNCV fQB71TT11BG74 O0RdReqriMDgcHQ+PHRhY mxlIHdpZHRoPScxMDAlJy FjkSghSM9jOh2oDVWfINQ vbGxhcHNlOiBj o7veSHXyPUvjHN2stXftS 8ZzmER3TXLvr5l1Zw31N7 7sV3GfjMJ+QPYmhML4xYP 4gZ5aKjNpIjB4 RTbwU910HpOpwMEvUfcuh 5dxa8axjNh6DsBnKZFzkl LigTljIYN0q3BtQq12J19 sIHdpZHRoPSIy UATkOELuaYldxc8foJ5qF i8+OXUyxCK2nOT3mY7tZk MnYyF5LUyrN897PhZorCV rMysdD07hM5Gp dXA+VPImCiu8QQHjqZjqW T3stKMwWFuqGv9rJUR1As HvRfGxDVecU9RzGXIislf jltjgrSF8BNJc ETIxdW88Gy7wfUhnWw4eX WXmYCM0UTHhuKIuB7YgvN 0fCwOtTLRkEMGjM1PjhVU fGSoiK791TLsj EaS7GTUxcbWsT2YwNUCxk QmfVkJ5s7Y5Cy0HeJkkpP JjTD1jUtOhXXr4U7FaYqu 2HRBdqNmfZL9a vDPcLUinLq6blVtidMpyR L5rKGPsadhec858HnUkk6 veEZZqwEFaTLgzOQJ2J09 yx7U1UNGcNXKq FXZ6wML1sA7zmDnwsqkrv GVmdDsgdmVydGljYWwtYW nnF403XNAbgOakJbFVJpy 6K2VmYxa6MMAh fEpiLW0ujSDqWSpzFs7kq ZbzyXojYC1zNQGypfrdy3 48JiZhi1rwJALcdLBiYVk gXYH7X85dw4A3 ZTYeBEMvKUU5hEI2xN6tr GlnbjogbGVmdDsgdmVydG gqAEupPZwvT255YJHsyBr vIv8TXth9K9Xi Tzx3RUGkuVjjLO4ncZDyG TcnRq8ljMytqKjvWO1gLR Lumvnzp224SaMkj0dhJAQ wcHQgVGltZXM7 G61vy7D4FFGgLIHfOUI8j MT7eS9npItktrdihQKxzN rpqfZwaNooLPqrYFulH97 6IHRvcDsnPlBh eWVyOjwvdGQ+PZ98ye34S 3ZkGhdzUvk6HVMtULG0cU K7iR6eGNRiVGbvv7Y7pCD 8Y2WshiJngd2l b2xs (more content not included)... Normal [facility] DB w/Reflex if POSon 2020 Nuclear Ab Ql (S) Negative Invalid Interpretation Code Negative [facility] Comment on above: Result Comment: Perf ormed at: [facility] [place], [place] [id number] PhD Curt Galicia Performed By: #### 2 832871, 7463766, 51891715, 23717955, [id number], [id number] ####[address] [place] [address] CCP Antibodies IgG/IgAon Cyclic citrullinated peptide IgA+IgG IA Qn 4 unit(s) Invalid Interpretation Code 0-19 [facility] Comment on above: Result Comment: Nega tive <20 Weak positive 20 - 39 Moderate positive 40 - 59 Strong positive >59 Performed at: [facility] [id number] MD Alonso Jonas Performed By: #### 2 678308, 3237903, 46528905, 69544190, [id number], [id number] ####[facility] [address] [place] [address] RF Quanton 01-06-2021 Rheumatoid factor Qn [IU]/mL Invalid Interpretation Code 0.0-13.9 [facility] Comment on above: Result Comment: Perf ormed at: [facility] [id number] PhD Curt Galicia Performed By: #### 2 447583, 3779516, 77794610, 65234155, [id number], [id number] ####[facility] [address] [place] [address] Auto Diffon 01-02-2021 Basophils/100 WBC (Bld) 0.7 % Normal 0.0-2.0 [facility] Comment on above: Order Comment: Order Added by Discern Expert. Performed By: #### 2 350969, 4146645, 07154678, 15402886, [id number], [id number] ####[facility] [address] [place] [address] Basophils/Leukocytes Auto (Bld) [Pure # fraction] 0.1 E9/L Normal 0.0-0.2 [facility] Comment on above: Order Comment: Order Added by Discern Expert. Performed By: #### 2 605843, 8103968, 47809753, 44596464, [id number], [id number] ####[facility] [address] [place] [address] Eosinophils/100 WBC (Bld) 1.0 % Normal 0.0-8.0 [facility] Comment on above: Order Comment: Order Added by Discern Expert. Performed By: #### 2 663575, 4122384, 06031130, 10536458, 356125137, [id number] ####[address] [address] Eosinophils/Leukocyte s Auto (Bld) [Pure # fraction] 0.1 E9/L Normal 0.0-0.5 [facility] Comment on above: Order Comment: Order Added by Discern Expert. Performed By: #### 2 786573, 5207587, 73273007, 29110094, [id number], [id number] ####[address] [address] Lymphocytes/100 WBC (Bld) 21.4 % Normal 14.0-50.0 [facility] Comment on above: Order Comment: Order Added by Discern Expert. Performed By: #### 2 201986, 7804009, 37569500, 27838764, [id number], 81930105 ####[address] [address] Lymphocytes/Leukocyte s Auto (Bld) [Pure # fraction] 2.0 E9/L Normal 1.0-4.0 [facility] Comment on above: Order Comment: Order Added by Discern Expert. Performed By: #### 2 745122, 2591808, 70203018, 66002487, 611977006, 24770867 ####[address] [address] Monocytes/100 WBC (Bld) 7.8 % Normal 4.0-14.0 [facility] Comment on above: Order Comment: Order Added by Discern Expert. Performed By: #### 2 335079, 8988016, 48438871, 17592400, 268033995, 72503712 ####[address] [address] Monocytes/Leukocytes Auto (Bld) [Pure # fraction] 0.7 E9/L Normal 0.2-1.0 [facility] Comment on above: Order Comment: Order Added by Discern Expert. Performed By: #### 2 069267, 1846564, 04162932, 86936792, 123645698, 97560709 ####[facility] [address] [place] [address] Neutrophils/100 WBC (Bld) 69.1 % Normal 36.0-75.0 [facility] Comment on above: Order Comment: Order Added by Discern Expert. Performed By: #### 2 959162, 0928299, 26592244, 44386690, 934195781, 89069107 ####[address] [address] Neutrophils/Leukocyte s Auto (Bld) [Pure # fraction] 6.6 E9/L Normal 2.0-7.5 [facility] Comment on above: Order Comment: Order Added by Discern Expert. Performed By: #### 2 487646, 1208730, 46434468, 04502177, 561627264, 52261302 ####[address] [address] CBC w/ Auto Diffon Erythrocyte distribution width (RBC) [Ratio] 14.6 % High 10.9-14.2 [facility] Comment on above: Performed By: #### 2 509272, 8039340, 46309134, 14627483, 856756980, 57529547 ####[facility] [address] [place] [address] Hematocrit (Bld) [Volume fraction] 38.2 % Normal 34.0-46.0 [facility] Comment on above: Performed By: #### 2 514977, 5494358, 82436488, 47102039, 683255823, 00820995 ####[address] [place] [address] Hemoglobin (Bld) [Mass/Vol] 12.6 g/dL Normal 12.0-16.0 [facility] Comment on above: Performed By: #### 2 875175, 8345840, 03604869, 38499754, 859575736, 05856758 ####[facility] [address] [place] [address] MCH (RBC) [Entitic mass] 27.2 pg Normal 27.0-34.0 [facility] Comment on above: Performed By: #### 2 802429, 0252952, 00977560, 19985827, 442220954, 42860406 ####[facility] [address] [place] [address] MCHC (RBC) [Mass/Vol] 32.9 g/dL Normal 31.4-36.0 [facility] Comment on above: Performed By: #### 2 897215, 7979690, 32932402, 00757195, 669785174, 03174635 ####[address] MCV (RBC) [Entitic vol] 82.5 fL Normal 80.0-100.0 [facility] Comment on above: Performed By: #### 2 894768, 6628439, 98276546, 93772975, 440789591, 66990996 ####[address] [address] Platelet mean volume (Bld) [Entitic vol] 8.2 fL Normal 6.4-10.8 [facility] Comment on above: Performed By: #### 2 719994, 0160311, 42107049, 49587077, 556183406, 83289938 ####[address] [address] Platelets (Bld) [#/Vol] 208.0 E9/L Normal 150.0-500.0 [facility] Comment on above: Performed By: #### 2 493596, 1595909, 13306343, 10467937, 439640614, 01996389 ####[address] [place] [address] RBC (Bld) [#/Vol] 4.6 E12/L Normal 4.3-5.9 [facility] Comment on above: Performed By: #### 2 661929, 1156166, 83661071, 62861427, 388286802, 84780197 ####[facility] [address] [place] [address] WBC corrected for nucl RBC Auto (Bld) [#/Vol] 9.5 E9/L Normal 4.0-11.0 [facility] Comment on above: Performed By: #### 2 893960, 5246053, [id number], [id number], [id number], [id number] ####[id number] [place] [address] COVID-19 ([facility])on 01-02-2021 SARS-CoV-2 (COVID-19) RNA BRIT+probe Ql (Unsp spec) Not detected Normal Not Detected [facility] Comment on above: Result Comment: This test result should be correlated with clinical presentations and medical history by a healthcare provider to determine its clinical significance. This assay was performed by a reverse transcriptase real-time polymerase chain reaction (rt PCR) method on the [employer] system. This test has been authorized only for the detection of nucleic acid from SARS-CoV-2, not for any other viruses or pathogens. This test has not been FDA cleared or approved. This test has been authorized by FDA under an Emergency Use Authorization (EUA). This test is only authorized for the duration of time the declaration on that circumstances exist justifying the authorization emergency use of in vitro diagnostic tests for detection and/or diagnosis of COVID-19 infection under section 564 (b) (1) of the Act, 21 U.S.C. 360 bbb-3 (b) (1), unless authorization is terminated or revoked sooner. Performed By: #### 2 [id number] #### [facility] [address] [place] [address] SARS-CoV-2 (COVID-19) RNA BRIT+probe Ql (Unsp spec) Pass Normal Pass [facility] Comment on above: Performed By: #### 2 [id number] #### [facility] [address] [place] [address] Specimen source Nom (Unsp spec) Nasal Normal [facility] Comment on above: Performed By: #### 2 [id number] #### [facility] [address] [place] [address] Consent for Treatmenton 12-20 Consent for Treatment [id number] .[id number]:127 Normal [facility] Physician Orderon 01-02-2021 Physician Order [id number] 1.00CD:127 Normal [facility] Sed Rate Automatedon 021 Sed Rate Automated 8 mm/hr Normal 0-34 [facility] Comment on above: Performed By: #### 2 [id number], [id number], [id number] ####[facility] [address] [place] [address] COVID-19 ([facility]on 01-01-2021 Employed in Healthcare Unknown Normal [facility] Comment on above: Performed By: #### 2 [id number] #### [facility] [address] [place] [address] First Test Unknown Normal [facility] Comment on above: Performed By: #### 2 [id number] #### [facility] [address] [place] [address] Hospitalized? Unknown Normal [facility] Comment on above: Performed By: #### 2 [id number] #### [facility] [address] [place] [address] ICU Unknown Normal [facility] Comment on above: Performed By: #### 2 [id number] #### [facility] [address] [place] [address] ? Unknown Normal [facility] Comment on above: Performed By: #### 2 [id number] #### [facility] [id number] Resides in a Congregate Care Setting Unknown Normal [facility] Comment on above: Performed By: #### 2 [id number] #### [facility] [address] [place] [address] Symptomatic as defined by CDC Unknown Normal [facility] Comment on above: Performed By: #### 2 [id number] #### [facility] [address] [place] [address] Physician Orderon 12-23-2020 Physician Order [id number] .[id number]:127 Normal [facility] Physician Order [id number] .00CD:127 Normal [facility] Dermatopathologyon Dermatopathology [facility] [address] [place] [id number] DERMATOPATHOLOGY REPORT Name:LILIANA MALONEY [facility]. Rec #. [id number] Location: [facility] Date of Procedure: 12/15/2020 Race: Date Received: 12/17/2020 /Sex: 1990 (Age: 30) / F Date Reported: 12/22/2020 Other: Submitting Physician:SANDY HAAS MD FINAL DIAGNOSIS A. 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 B. SKIN, MID SCALP, BIOPSY: DERMAL NEVUS, PRESENT ON THE DEEP MARGIN. C. SKIN, L ABDOMEN BIOPSY: COMPOUND NEVUS, PRESENT ON THE DEEP MARGIN. Electronically Signed Out by ISAÍAS SKINNER M.D. Electronically Signed Out By ISAÍAS SKINNER MD/[facility] By the signature on this report, the individual or group listed as making the Final Interpretation/Diagno sis certifies that they have reviewed this case. Clinical History: A: 0.7x0.7cm inflamed vs. dysplastic nevus. Biopsy. B: 0.5x0.5cm inflamed vs. dysplastic nevus.. Biopsy. C: 0.7x0.7cm inflamed vs. dysplastic nevus. Specimens Submitted As: A: SKIN, R POSTAURICULAR SCALP B: SKIN, MID SCALP C: SKIN, L ABDOMEN Gross Description: A: Received in formalin is a stone piece of skin measuring [id number]. The specimen is inked and embedded in toto. B: Received in formalin is a stone piece of skin measuring [id number]. The specimen is inked and embedded in toto. C: Received in formalin is a stone piece of skin measuring [id number]. The specimen is inked and embedded in toto. ink/12/17/2020 Microscopic Description: A. Microscopic analysis shows a symmetric, papular proliferation of bland melanocytes in dermis. Dermal melanocytes mature with increasing depth in dermis and show no cytologic atypia. A step section was performed. B. Microscopic analysis shows a symmetric, papular proliferation of bland melanocytes in dermis. Dermal melanocytes mature with increasing depth in dermis and show no cytologic atypia. A step section was performed. C. Microscopic analysis shows a symmetric proliferation of melanocytes in epidermis and dermis. Melanocytes nest regularly along the dermal-epidermal junction, and dermal melanocytes mature with increasing depth in dermis. The melanocytes show no cytologic atypia. A step section was performed. Normal [facility] Comment on above: Performed By: #### D #### Dermatopathology POCT urine pregnancyon 09-26 Beta HCG ( test) Ql (U) Negative NEGATIVE [place] Comment on above: Specimens with hCG l evels near the threshold of the test (25 mIU/mL) may give a negative or indeterminate result. In such cases, another test should be performed with a new specimen in 48-72 hours. If early is suspected clinically in this setting, correlation with quantitative serum b-hCG level is suggested. TESTING PERFORMED AT [facility] [id number] [place] [address] Ferritinon 06-10-2020 Ferritin [Mass/Vol] 28 ug/L 13 - 150 ug/L [place] Iron and TIBCon 06-10-2020 Iron [Mass/Vol] 53 ug/dL 37 - 145 ug/dL [place] Iron Saturation 13 % Low 20 - 55 % [facility] [place] TIBC 397 ug/dL 250 - 450 ug/dL [place] UIBC 344 ug/dL 112 - 347 ug/dL [place] Magnesiumon 06-10-2020 Magnesium [Mass/Vol] 2.3 mg/dL 1.6 - 2 .6 mg/dL [place] Otheron 06-10-2020 Interpretation and review of laboratory results Abnormal [place] PTH, Intacton 06-10-2020 Pth Intact 49.3 pg/mL 15 - 65 pg/mL [place] Comment on above: SAMPLES FROM PATIENT S ROUTINELY RECEIVING HIGH DOSE BIOTIN THERAPY MAY SHOW FALSELY DEPRESSED RESULTS. ADDITIONAL INFORMATION MAY BE REQUIRED FOR DIAGNOSIS. Vitamin B12 & Folateon 06-10 Cobalamin (Vitamin B12) [Mass/Vol] 717 pg/mL 232 - 1245 pg/mL [place] Folate 15 ng/mL >4.8 [place] Vitamin D 25 Hydroxyon 06-10 Vit D, 25-Hydroxy 20.7 ng/mL Low 30 - 100 ng/mL [place] Comment on above: Reference Range: Vitamin D status Range Deficiency <20 ng/mL Mild Deficiency 20-30 ng/mL Sufficiency 30-100 ng/mL Toxicity >100 ng/mL CBC Auto Differentialon 05-22 Basophils (Bld) [#/Vol] 0.05 10*3/uL [place] Basophils/100 WBC (Bld) 1 % 0 - 2 % [place] Differential Type NOT REPORTED [place] Eosinophils (Bld) [#/Vol] 0.11 10*3/uL [place] Eosinophils/100 WBC (Bld) 1 % 1 - 4 % [place] Erythrocyte distribution width (RBC) [Ratio] 13.8 % 11.8 - 14.4 % [place] Hematocrit (Bld) [Volume fraction] 40.6 % 36.3 - 47.1 % [place] Hemoglobin (Bld) [Mass/Vol] 12.2 g/dL 11.9 - 15.1 g/dL [place] Immature granulocytes (Bld) [#/Vol] 0.08 10*3/uL [place] Immature granulocytes (Bld) [#/Vol] 1 % High 0 [place] Interpretation and review of laboratory results Abnormal [place] Lymphocytes (Bld) [#/Vol] 2.40 10*3/uL [place] Lymphocytes/100 WBC (Bld) 24 % 24 - 43 % [place] MCH (RBC) [Entitic mass] 26.3 pg 25.2 - 33.5 pg [place] MCHC (RBC) [Mass/Vol] 30.0 g/dL 28.4 - 34.8 g/dL [place] MCV (RBC) [Entitic vol] 87.7 fL 82.6 - 102.9 fL [place] Monocytes (Bld) [#/Vol] 0.95 10*3/uL [place] Monocytes/100 WBC (Bld) 10 % 3 - 12 % [place] Platelet mean volume (Bld) [Entitic vol] 10.2 fL 8.1 - 13.5 fL [place] Platelets (Bld) [#/Vol] NOT REPORTED [place] Platelets (Bld) [#/Vol] 235 10*3/uL [place] RBC (Bld) [#/Vol] 4.63 10*6/uL 3.95 - 5.1 1 m/uL [place] RBC morphology finding Nom (Bld) NOT REPORTED [place] Segmented neutrophils/100 WBC (Bld) 63 % 36 - 65 % [place] Segs Absolute 6.29 [place] WBC (Bld) [#/Vol] 9.9 10*3/uL [place] WBC (Bld) [#/Vol] 0.0 10*3/uL 0.0 per 10 0 WBC [place] WBC Morphology NOT REPORTED [place] Comprehensive Metabolic Pane marquise 06-05-2020 Albumin [Mass/Vol] 4 g/dL 3.5 - 5.2 g/dL [place] Albumin/Globulin [Mass ratio] 1.4 {ratio} [place] ALP [Catalytic activity/Vol] 59 U/L 35 - 104 U/L [place] ALT [Catalytic activity/Vol] 29 U/L 5 - 33 U/L [place] Anion gap [Moles/Vol] 12 mmol/L 9 - 17 mmol/L [place] AST [Catalytic activity/Vol] 21 U/L <32 [place] Bilirubin Ql (U) 0.49 mg/dL 0.3 - 1.2 mg/dL [place] Bun/Cre Ratio NOT REPORTED [place] Calcium [Mass/Vol] 8.9 mg/dL 8.6 - 10. 4 mg/dL [place] Chloride [Moles/Vol] 104 mmol/L 98 - 10 7 mmol/L [place] CO2 [Moles/Vol] 22 mmol/L 20 - 31 mmol/L [place] Creatinine [Mass/Vol] 0.49 mg/dL Low 0.5 - 0.9 mg/dL [place] GFR >60 >60 mL/min [place] GFR Non- >60 >60 mL/min [place] GFR/1.73 sq M predicted among non-blacks MDRD (S/P/Bld) [Vol rate/Area] [place] Comment on above: Average GFR for 20-2 9 years old: 116 mL/min/1.73sq m Chronic Kidney Disease: <60 mL/min/1.73sq m Kidney failure: <15 mL/min/1.73sq m eGFR calculated using average adult body mass. Additional eGFR calculator available at: http://www.[employer]/multiple_crcl_2012.htm GFR/1.73 sq M predicted among non-blacks MDRD (S/P/Bld) [Vol rate/Area] NOT REPORTED [place] Glucose [Mass/Vol] 103 mg/dL High 70 - 99 mg/dL [place], [place] Potassium [Moles/Vol] 4.0 mmol/L 3.7 - 5.3 mmol/L [place] Protein [Mass/Vol] 6.8 g/dL 6.4 - 8.3 g/dL [place] Sodium [Moles/Vol] 138 mmol/L 135 - 144 mmol/L [place] Urea nitrogen [Mass/Vol] 13 mg/dL 6 - 20 mg/dL [place] Hemoglobin A1Con 06-05-2020 Glucose [Mass/Vol] 111 mg/dL [place] Comment on above: The ADA and AACC rec ommend providing the estimated average glucose result to permit better patient understanding of their HBA1c result. HbA1c (Bld) [Mass fraction] 5.5 % 4 - 6 % [place] Lipid Panelon 06-05-2020 Cholesterol [Mass/Vol] 151 mg/dL <200 [place] Comment on above: Cholesterol Guidelines: <200 Desirable 200-240 Borderline >240 Undesirable Cholesterol in HDL [Mass/Vol] 47 mg/dL >40 [place] Comment on above: HDL Guidelines: <40 Undesirable 40-59 Borderline >59 Desirable Cholesterol in LDL [Mass/Vol] 74 mg/dL 0 - 130 mg/dL [place] Comment on above: LDL Guidelines: <100 Desirable 100-129 Near to/above Desirable 130-159 Borderline >159 Undesirable Direct (measured) LDL and calculated LDL are not interchangeable tests. Cholesterol in VLDL [Mass/Vol] NOT REPORTED 1 - 30 mg/dL [place] Cholesterol.total/Cho lesterol in HDL [Mass ratio] 3.2 {ratio} <5 [place] Triglyceride [Mass/Vol] 150 mg/dL High <150 [place] Comment on above: Triglyceride Guidelines: <150 Desirable 150-199 Borderline 200-499 High >499 Very high Based on AHA Guidelines for fasting triglyceride, May 2012. Otheron 06-05-2020 Interpretation and review of laboratory results Abnormal [place] TSH With Reflex Ft4on 2019 TSH Qn 4.68 m[IU]/L [place] Magnesiumon 11-04-2019 Magnesium [Mass/Vol] 2.1 mg/dL 1.6 - 2 .6 mg/dL [place] Magnesiumon 11-03-2019 Magnesium [Mass/Vol] 2.2 mg/dL 1.6 - 2 .6 mg/dL [place] Magnesium [Mass/Vol] 2.5 mg/dL 1.6 - 2 .6 mg/dL [place] CBC auto differentialon 10-20 Basophils (Bld) [#/Vol] 0.00 10*3/uL [place] Basophils/100 WBC (Bld) 0 % 0 - 2 % [place] Differential Type NOT REPORTED [place] Eosinophils (Bld) [#/Vol] 0.00 10*3/uL [place] Eosinophils/100 WBC (Bld) 0 % Low 1 - 4 % [place] Erythrocyte distribution width (RBC) [Ratio] 14.5 % High 11.8 - 14.4 % [place] Hematocrit (Bld) [Volume fraction] 32.0 % Low 36.3 - 47.1 % [place] Hemoglobin (Bld) [Mass/Vol] 10.0 g/dL Low 11.9 - 15.1 g/dL [place] Immature granulocytes (Bld) [#/Vol] 0.23 10*3/uL [place] Immature granulocytes (Bld) [#/Vol] 1 % High 0 [place] Interpretation and review of laboratory results Abnormal [place] Lymphocytes (Bld) [#/Vol] 2.04 10*3/uL [place] Lymphocytes/100 WBC (Bld) 9 % Low 24 - 44 % [place] MCH (RBC) [Entitic mass] 27.2 pg 25.2 - 33.5 pg [place] MCHC (RBC) [Mass/Vol] 31.3 g/dL 28.4 - 34.8 g/dL [place] MCV (RBC) [Entitic vol] 87.0 fL 82.6 - 102.9 fL [place] Monocytes (Bld) [#/Vol] 0.68 10*3/uL [place] Monocytes/100 WBC (Bld) 3 % 1 - 7 % [place] Morphology Patrick (Bld) [Interp] ANISOCYTOSIS PRESENT [place] Platelet mean volume (Bld) [Entitic vol] 11.5 fL 8.1 - 13.5 fL [place] Platelets (Bld) [#/Vol] 234 10*3/uL [place] Platelets (Bld) [#/Vol] NOT REPORTED [place] RBC (Bld) [#/Vol] 3.68 10*6/uL Low 3.95 - 5.1 1 m/uL [place] RBC morphology finding Nom (Bld) NOT REPORTED [place] Segmented neutrophils/100 WBC (Bld) 87 % High 36 - 66 % [place] Segs Absolute 19.75 High [place] WBC (Bld) [#/Vol] 22.7 10*3/uL [place] WBC (Bld) [#/Vol] 0.0 10*3/uL 0.0 per 10 0 WBC [place] WBC Morphology NOT REPORTED [place] Magnesiumon 11-02-2019 Interpretation and review of laboratory results Abnormal [place] Magnesium [Mass/Vol] 4.8 mg/dL High 1.6 - 2 .6 mg/dL [place] Interpretation and review of laboratory results Abnormal [place] Magnesium [Mass/Vol] 4.8 mg/dL High 1.6 - 2 .6 mg/dL [place] CBCon 11-01-2019 Erythrocyte distribution width (RBC) [Ratio] 14.8 % High 11.8 - 14.4 % [place] Hematocrit (Bld) [Volume fraction] 34.2 % Low 36.3 - 47.1 % [place] Hemoglobin (Bld) [Mass/Vol] 10.6 g/dL Low 11.9 - 15.1 g/dL [place] Interpretation and review of laboratory results Abnormal [place] MCH (RBC) [Entitic mass] 26.5 pg 25.2 - 33.5 pg [place] MCHC (RBC) [Mass/Vol] 31.0 g/dL 28.4 - 34.8 g/dL [place] MCV (RBC) [Entitic vol] 85.5 fL 82.6 - 102.9 fL [place] Platelet mean volume (Bld) [Entitic vol] 12.2 fL 8.1 - 13.5 fL [place] Platelets (Bld) [#/Vol] 245 10*3/uL [place] RBC (Bld) [#/Vol] 4.00 10*6/uL 3.95 - 5.1 1 m/uL [place] WBC (Bld) [#/Vol] 0.0 10*3/uL 0.0 per 10 0 WBC [place] WBC (Bld) [#/Vol] 13.3 10*3/uL [place] Comprehensive Metabolic Pane marquise 11-01-2019 Albumin [Mass/Vol] 2.8 g/dL Low 3.5 - 5.2 g/dL [place] Albumin/Globulin [Mass ratio] 0.9 {ratio} Low [place] ALP [Catalytic activity/Vol] 97 U/L 35 - 104 U/L [place] ALT [Catalytic activity/Vol] 11 U/L 5 - 33 U/L [place] Anion gap [Moles/Vol] 15 mmol/L 9 - 17 mmol/L [place] AST [Catalytic activity/Vol] 14 U/L <32 [place] Bilirubin Ql (U) 0.24 mg/dL Low 0.3 - 1.2 mg/dL [place] Bun/Cre Ratio NOT REPORTED [place] Calcium [Mass/Vol] 8.6 mg/dL 8.6 - 10. 4 mg/dL [place] Chloride [Moles/Vol] 107 mmol/L 98 - 10 7 mmol/L [place] CO2 [Moles/Vol] 17 mmol/L Low 20 - 31 mmol/L [place] Creatinine [Mass/Vol] 0.36 mg/dL Low 0.5 - 0.9 mg/dL [place] GFR >60 >60 mL/min [place] GFR Non- >60 >60 mL/min [place] GFR/1.73 sq M predicted among non-blacks MDRD (S/P/Bld) [Vol rate/Area] [place] Comment on above: Average GFR for 20-2 9 years old: 116 mL/min/1.73sq m Chronic Kidney Disease: <60 mL/min/1.73sq m Kidney failure: <15 mL/min/1.73sq m eGFR calculated using average adult body mass. Additional eGFR calculator available at: http://www.[employer]/multiple_crcl_2012.htm GFR/1.73 sq M predicted among non-blacks MDRD (S/P/Bld) [Vol rate/Area] NOT REPORTED [place] Glucose [Mass/Vol] 101 mg/dL High 70 - 99 mg/dL [place] Interpretation and review of laboratory results Abnormal [place] Potassium [Moles/Vol] 3.8 mmol/L 3.7 - 5.3 mmol/L [place] Protein [Mass/Vol] 6.0 g/dL Low 6.4 - 8.3 g/dL [place] Sodium [Moles/Vol] 139 mmol/L 135 - 144 mmol/L [place] Urea nitrogen [Mass/Vol] 8 mg/dL 6 - 20 mg/dL [place] Microscopic Urinalysison Amorphous, UA NOT REPORTED None [place] Bacteria, UA NOT REPORTED None [place] Casts UA 2 TO 5 HYALINE Reference range defined for non-centrifuged specimen. [place] Crystals, UA MODERATE CALCIUM OXALATE Abnormal None /HPF [place] Epithelial Cells UA 0 TO 2 [place] Interpretation and review of laboratory results Abnormal [place] Mucus, UA NOT REPORTED None [place] Other Observations UA NOT REPORTED NOT REQ. [place] RBC (U) [#/Vol] 2 TO 5 [place] Comment on above: Reference range defi brittany for non-centrifuged specimen. Renal Epithelial, UA NOT REPORTED 0 /HPF [place] Trichomonas, UA NOT REPORTED None [place] WBC, UA 2 TO 5 [place] Yeast, UA NOT REPORTED None [place] - [place] Protein / creatinine ratio, urineon 11-01-2019 Creatinine, Ur 57.5 mg/dL 28 - 217 mg/dL [place] Protein (U) [Mass/Vol] 11 mg/dL [place] Comment on above: No normal range esta blished. Urine Total Protein Creatinine Ratio 0.19 [place] TYPE AND SCREENon 11-01-2019 ABO/Rh Positive [place] Arm Band Number [id number] [place] Expiration Date 11/04/2019,2359 [place] Urinalysis Reflex to Culture on 11-01-2019 Bilirubin Urine Negative NEGATIVE [place] Color, UA YELLOW YELLOW [place] Glucose, Ur Negative NEGATIVE [place] Interpretation and review of laboratory results Abnormal [place] Ketones Ql (U) TRACE Abnormal NEGATIVE [place] Leukocyte esterase Test strip Ql (U) Negative NEGATIVE [place] Nitrite, Urine Negative NEGATIVE [place] pH, UA 5.0 [place] Protein (U) [Mass/Vol] Negative NEGATIVE [place] Specific [place], UA 1.024 [place] Turbidity UA TURBID Abnormal CLEAR [place] Urinalysis Comments NOT REPORTED [place], [place] Urine Hgb Negative NEGATIVE [place] Urobilinogen, Urine Normal Normal [place] CBC Auto Differentialon 10-20 Basophils (Bld) [#/Vol] 0.03 10*3/uL [place] Basophils/100 WBC (Bld) 0 % 0 - 2 % [place] Differential Type NOT REPORTED [place] Eosinophils (Bld) [#/Vol] 0.04 10*3/uL [place] Eosinophils/100 WBC (Bld) 0 % Low 1 - 4 % [place] Erythrocyte distribution width (RBC) [Ratio] 14.5 % High 11.8 - 14.4 % [place] Hematocrit (Bld) [Volume fraction] 36.2 % Low 36.3 - 47.1 % [place] Hemoglobin (Bld) [Mass/Vol] 11.2 g/dL Low 11.9 - 15.1 g/dL [place] Immature granulocytes (Bld) [#/Vol] 0.18 10*3/uL [place] Immature granulocytes (Bld) [#/Vol] 1 % High 0 [place] Interpretation and review of laboratory results Abnormal [place] Lymphocytes (Bld) [#/Vol] 2.39 10*3/uL [place] Lymphocytes/100 WBC (Bld) 14 % Low 24 - 43 % [place] MCH (RBC) [Entitic mass] 26.5 pg 25.2 - 33.5 pg [place] MCHC (RBC) [Mass/Vol] 30.9 g/dL 28.4 - 34.8 g/dL [place] MCV (RBC) [Entitic vol] 85.6 fL 82.6 - 102.9 fL [place] Monocytes (Bld) [#/Vol] 1.14 10*3/uL [place] Monocytes/100 WBC (Bld) 7 % 3 - 12 % [place] Platelet mean volume (Bld) [Entitic vol] 11.4 fL 8.1 - 13.5 fL [place] Platelets (Bld) [#/Vol] NOT REPORTED [place] Platelets (Bld) [#/Vol] 240 10*3/uL [place] RBC (Bld) [#/Vol] 4.23 10*6/uL 3.95 - 5.1 1 m/uL [place] RBC morphology finding Nom (Bld) ANISOCYTOSIS PRESENT [place] Segmented neutrophils/100 WBC (Bld) 78 % High 36 - 65 % [place] Segs Absolute 13.17 High [place] WBC (Bld) [#/Vol] 0.0 10*3/uL 0.0 per 10 0 WBC [place] WBC (Bld) [#/Vol] 17.0 10*3/uL [place] WBC Morphology NOT REPORTED [place] Comprehensive Metabolic Pane marquise 10-31-2019 Albumin [Mass/Vol] 2.8 g/dL Low 3.5 - 5.2 g/dL [place] Albumin/Globulin [Mass ratio] 0.8 {ratio} Low [place] ALP [Catalytic activity/Vol] 104 U/L 35 - 104 U/L [place] ALT [Catalytic activity/Vol] 13 U/L 5 - 33 U/L [place] Anion gap [Moles/Vol] 12 mmol/L 9 - 17 mmol/L [place] AST [Catalytic activity/Vol] 15 U/L <32 [place] Bilirubin Ql (U) 0.19 mg/dL Low 0.3 - 1.2 mg/dL [place] Bun/Cre Ratio NOT REPORTED [place] Calcium [Mass/Vol] 9.3 mg/dL 8.6 - 10. 4 mg/dL [place] Chloride [Moles/Vol] 106 mmol/L 98 - 10 7 mmol/L [place] CO2 [Moles/Vol] 19 mmol/L Low 20 - 31 mmol/L [place] Creatinine [Mass/Vol] 0.41 mg/dL Low 0.5 - 0.9 mg/dL [place] GFR >60 >60 mL/min [place] GFR Non- >60 >60 mL/min [place] GFR/1.73 sq M predicted among non-blacks MDRD (S/P/Bld) [Vol rate/Area] [place] Comment on above: Average GFR for 20-2 9 years old: 116 mL/min/1.73sq m Chronic Kidney Disease: <60 mL/min/1.73sq m Kidney failure: <15 mL/min/1.73sq m eGFR calculated using average adult body mass. Additional eGFR calculator available at: http://www.[employer]/VHX_crcl_2012.htm GFR/1.73 sq M predicted among non-blacks MDRD (S/P/Bld) [Vol rate/Area] NOT REPORTED [place] Glucose [Mass/Vol] 151 mg/dL High 70 - 99 mg/dL [place] Interpretation and review of laboratory results Abnormal [place] Potassium [Moles/Vol] 4.1 mmol/L 3.7 - 5.3 mmol/L [place] Protein [Mass/Vol] 6.3 g/dL Low 6.4 - 8.3 g/dL [place] Sodium [Moles/Vol] 137 mmol/L 135 - 144 mmol/L [place] Urea nitrogen [Mass/Vol] 10 mg/dL 6 - 20 mg/dL [place] Protein / creatinine ratio, urineon 10-31-2019 Creatinine, Ur 102.9 mg/dL 28 - 217 mg/dL [place] Protein (U) [Mass/Vol] 18 mg/dL [place] Comment on above: No normal range esta blished. Urine Total Protein Creatinine Ratio 0.17 [place] TSH with Reflexon 10-31-2019 TSH Qn 1.81 m[IU]/L [place] CBC Auto Differentialon Basophils (Bld) [#/Vol] 0.04 10*3/uL [employer] Phone: Basophils/100 WBC (Bld) 0 % 0 - 2 % [employer] Phone: Differential Type NOT REPORTED [employer] Phone: Eosinophils (Bld) [#/Vol] 0.04 10*3/uL [employer] Phone: Eosinophils/100 WBC (Bld) 0 % Low 1 - 4 % [employer] Phone: Erythrocyte distribution width (RBC) [Ratio] 14.6 % High 11.8 - 14.4 % [employer] Phone: Hematocrit (Bld) [Volume fraction] 36.7 % 36.3 - 47.1 % [employer] Phone: Hemoglobin (Bld) [Mass/Vol] 11.3 g/dL Low 11.9 - 15.1 g/dL [employer] Phone: Immature granulocytes (Bld) [#/Vol] 2 % High 0 [employer] Phone: Immature granulocytes (Bld) [#/Vol] 0.21 10*3/uL [employer] Phone: Interpretation and review of laboratory results Abnormal [employer] Phone: Lymphocytes (Bld) [#/Vol] 2.16 10*3/uL [employer] Phone: Lymphocytes/100 WBC (Bld) 15 % Low 24 - 43 % [employer] Phone: MCH (RBC) [Entitic mass] 26.7 pg 25.2 - 33.5 pg [employer] Phone: MCHC (RBC) [Mass/Vol] 30.8 g/dL 28.4 - 34.8 g/dL [employer] Phone: MCV (RBC) [Entitic vol] 86.6 fL 82.6 - 102.9 fL [employer] Phone: Monocytes (Bld) [#/Vol] 0.92 10*3/uL [employer] Phone: Monocytes/100 WBC (Bld) 7 % 3 - 12 % [employer] Work Phone: Platelet mean volume (Bld) [Entitic vol] 11.2 fL 8.1 - 13.5 fL [employer] Work Phone: Platelets (Bld) [#/Vol] NOT REPORTED [employer] Work Phone: Platelets (Bld) [#/Vol] 252 10*3/uL [employer] Work Phone: RBC (Bld) [#/Vol] 4.24 10*6/uL 3.95 - 5.1 1 m/uL [employer] Work Phone: RBC morphology finding Nom (Bld) ANISOCYTOSIS PRESENT [employer] [facility] Work Phone: Segmented neutrophils/100 WBC (Bld) 76 % High 36 - 65 % [employer] Work Phone: Segs Absolute 10.66 High [employer] Work Phone: WBC (Bld) [#/Vol] 14.0 10*3/uL High [employer] Work Phone: WBC (Bld) [#/Vol] 0.0 10*3/uL 0.0 per 10 0 WBC [employer] Work Phone: WBC Morphology NOT REPORTED [facility] Work Phone: Microscopic Urinalysison Amorphous, UA 3+ Abnormal None [employer] Work Phone: Bacteria, UA FEW Abnormal None [employer] Work Phone: Casts UA [employer] Work Phone: Crystals UA NOT REPORTED None /HPF [employer] Work Phone: Epithelial Cells UA 5 TO 10 [facility] Work Phone: Interpretation and review of laboratory results Abnormal [facility] Work Phone: Mucus, UA 1+ Abnormal None [facility] Work Phone: Other Observations UA NOT REPORTED NOT REQ. [facility] [employer] Work Phone: RBC (U) [#/Vol] 0 TO 2 [facility] Work Phone: Comment on above: Reference range defi brittany for non-centrifuged specimen. Renal Epithelial, Urine NOT REPORTED 0 /HPF [facility] Work Phone: Trichomonas, UA NOT REPORTED None [facility] Work Phone: WBC, UA 10 TO 20 [facility] Work Phone: Yeast, UA NOT REPORTED None [facility] Work Phone: - [facility] [employer] Work Phone: TSH With Reflex Ft4on 2019 TSH Qn 1.79 m[IU]/L [facility] Work Phone: Urinalysis Reflex to Culture on 09-27-2019 Bilirubin Urine Negative NEGATIVE [facility] Work Phone: Color, UA YELLOW YELLOW [facility] Work Phone: Glucose, Ur Negative NEGATIVE [facility] Work Phone: Interpretation and review of laboratory results Abnormal [facility] Work Phone: Ketones Ql (U) TRACE Abnormal NEGATIVE [facility] Work Phone: Leukocyte esterase Test strip Ql (U) Negative NEGATIVE [facility] Work Phone: Nitrite, Urine Negative NEGATIVE [facility] Work Phone: pH, UA 5.0 [facility] Work Phone: Protein (U) [Mass/Vol] Negative NEGATIVE [employer] Phone: Specific [place], UA 1.025 [employer] Phone: Turbidity UA TURBID Abnormal CLEAR [employer] Phone: Urinalysis Comments Culture ordered base d on defined criteria. [employer] Phone: Urine Hgb Negative NEGATIVE [facility] Phone: Urobilinogen, Urine Normal Normal [employer] Phone: BUNOrdered By: Chandu Rondon on 09-06-2019 Interpretation and review of laboratory results Abnormal [employer] Phone: Urea nitrogen [Mass/Vol] 5 mg/dL Low 6 - 20 mg/dL [employer] Phone: Creatinine ClearanceOrdered By: Chandu Rondon on 09-06-2019 Creatinine [Mass/Vol] 0.37 mg/dL Low 0.5 - 0.9 mg/dL [employer] Phone: Creatinine [Mass/Vol] 94.5 mg/dL 28 - 2 17 mg/dL [employer] Phone: Creatinine Clearance 112.1 [employer] Phone: Interpretation and review of laboratory results Abnormal [employer] Phone: Length Of Collection 24 h [facility] [employer] Phone: Patient Height 158 cm [facility] Centerdurchblicker.at Work Phone: Volume 782 mL [facility] Phone: Creatinine, urine, timedOrde red By: Chandu Rondon on 09-06-2019 Creatinine Timed Ur NOT REPORTED mg/ X h [facility] [employer] Phone: Creatinine, 24H Ur 726 Low [facility] Phone: Creatinine, Ur 92.8 mg/dL [facility] [employer] Work Phone: Interpretation and review of laboratory results Abnormal [facility] [employer] Work Phone: GLUCOSE DION. 3 HROrdered By: Chandu Rondon on 09-06-2019 Amount Glucose Given 100 g [facility] [employer] Work Phone: Glucose [Mass/Vol] 92 mg/dL 65 - 94 mg/dL [facility] [employer] Work Phone: Glucose [Mass/Vol] 126 mg/dL 65 - 139 mg/dL [facility] [employer] Work Phone: Glucose, GTT - 1 Hour 159 mg/dL 65 - 1 79 mg/dL [facility] [employer] Work Phone: Glucose, GTT - 2 Hour 180 mg/dL High 65 - 1 54 mg/dL [facility] [employer] Work Phone: Interpretation and review of laboratory results Abnormal [facility] [employer] Work Phone: No Panel InformationOrdered By: Chandu Rondon on 09-06-2019 Hours Collected 24 h [facility] Work Phone: Volume 782 mL [facility] [employer] Work Phone: Protein, urine, timedOrdered By: Chandu Rondon on 09-06-2019 Protein (U) [Mass/Vol] 13 mg/dL [facility] [employer] Phone: Protein, 24H Urine 102 <151 mg/24 h [facility] [employer] Work Phone: Protein,Tot Timed Ur NOT REPORTED mg/X h [facility] [employer] Work Phone: T4, FreeOrdered By: Chandu barrios on 09-06-2019 Interpretation and review of laboratory results Abnormal [facility] [employer] Work Phone: Thyroxine, Free 0.88 ng/dL Low 0.93 - 1.7 ng/dL [facility] [employer] Work Phone: TSH without ReflexOrdered By : Chandu Rondon on 09-06-2019 TSH Qn 1.56 m[IU]/L [facility] [employer] Work Phone: Progesteroneon 05-30-2019 Progesterone 10.52 ng/mL [place] Comment on above: FEMALE (healthy): Follicular phase 0.06-0.89 Ovulation phase 0.12-12.00 Luteal phase 1.83-23.90 Postmenopausal <0.13 Comprehensive Metabolic Pane marquise 05-11-2019 Albumin [Mass/Vol] 3.9 g/dL 3.5 - 5.2 g/dL [place] Albumin/Globulin [Mass ratio] 1.2 {ratio} [place] ALP [Catalytic activity/Vol] 46 U/L 35 - 104 U/L [place] ALT [Catalytic activity/Vol] 11 U/L 5 - 33 U/L [place] Anion gap [Moles/Vol] 18 mmol/L High 9 - 17 mmol/L [place] AST [Catalytic activity/Vol] 15 U/L <32 [place] Bilirubin Ql (U) 0.26 mg/dL Low 0.3 - 1.2 mg/dL [place] Bun/Cre Ratio NOT REPORTED [place] Calcium [Mass/Vol] 9.0 mg/dL 8.6 - 10. 4 mg/dL [place] Chloride [Moles/Vol] 102 mmol/L 98 - 10 7 mmol/L [place] CO2 [Moles/Vol] 19 mmol/L Low 20 - 31 mmol/L [place] Creatinine [Mass/Vol] 0.48 mg/dL Low 0.5 - 0.9 mg/dL [place] GFR >60 >60 mL/min [place] GFR Non- >60 >60 mL/min [place] GFR/1.73 sq M predicted among non-blacks MDRD (S/P/Bld) [Vol rate/Area] NOT REPORTED [place] GFR/1.73 sq M predicted among non-blacks MDRD (S/P/Bld) [Vol rate/Area] [place] Comment on above: Average GFR for 20-2 9 years old: 116 mL/min/1.73sq m Chronic Kidney Disease: <60 mL/min/1.73sq m Kidney failure: <15 mL/min/1.73sq m eGFR calculated using average adult body mass. Additional eGFR calculator available at: http://www.Whist[employer]op/multiple_crcl_2012.htm Glucose [Mass/Vol] 133 mg/dL High 70 - 99 mg/dL [place], [place] Comment on above: PATIENT NOT FASTING Interpretation and review of laboratory results Abnormal [place] Potassium [Moles/Vol] 3.9 mmol/L 3.7 - 5.3 mmol/L [place] Protein [Mass/Vol] 7.1 g/dL 6.4 - 8.3 g/dL [place] Sodium [Moles/Vol] 139 mmol/L 135 - 144 mmol/L [place] Urea nitrogen [Mass/Vol] 7 mg/dL 6 - 20 mg/dL [place] Glucose tolerance, 1 houron 05-11-2019 GLU ADMN Glucola [place] Glucose tolerance screen 50g 133 mg/dL 70 - 135 mg/dL [place] HCG, Quantitative, on 05-11-2019 hCG Quant [id number] High <5 IU/L [place] Comment on above: Non-preg premeno <=5 Postmeno <=8 Male <=3 If HCG results do not concur with clinical observations, additional testing to confirm results is recommended. Elevated results not associated with may be found in patients with other diseases such as tumors of the germ cells (testis, ovaries, etc.), bladder, pancreas, stomach, lungs, and liver. Interpretation and review of laboratory results Abnormal [place] HIV Screenon 05-11-2019 HIV Ag/Ab NONREACTIVE NONREACTIVE [place] Comment on above: No laboratory eviden ce of HIV infection. If acute HIV infection is suspected, consider testing for HIV-1 RNA. PROFILE Ion 019 Basophils (Bld) [#/Vol] 0.04 10*3/uL [place] Basophils/100 WBC (Bld) 0 % 0 - 2 % [place] Differential Type NOT REPORTED [place] Eosinophils (Bld) [#/Vol] 0.07 10*3/uL [place] Eosinophils/100 WBC (Bld) 1 % 1 - 4 % [place] Erythrocyte distribution width (RBC) [Ratio] 13.6 % 11.8 - 14.4 % [place] Hematocrit (Bld) [Volume fraction] 39.7 % 36.3 - 47.1 % [place] Hemoglobin (Bld) [Mass/Vol] 12.4 g/dL 11.9 - 15.1 g/dL [place] Hepatitis B Surface Ag NONREACTIVE NONREACTIVE [place] Immature granulocytes (Bld) [#/Vol] 0.04 10*3/uL [place] Immature granulocytes (Bld) [#/Vol] 0 % 0 [place] Interpretation and review of laboratory results Abnormal [place] Lymphocytes (Bld) [#/Vol] 2.22 10*3/uL [place] Lymphocytes/100 WBC (Bld) 24 % 24 - 43 % [place] MCH (RBC) [Entitic mass] 27.0 pg 25.2 - 33.5 pg [place] MCHC (RBC) [Mass/Vol] 31.2 g/dL 28.4 - 34.8 g/dL [place] MCV (RBC) [Entitic vol] 86.3 fL 82.6 - 102.9 fL [place] Monocytes (Bld) [#/Vol] 0.56 10*3/uL [place] Monocytes/100 WBC (Bld) 6 % 3 - 12 % [place] Platelet mean volume (Bld) [Entitic vol] 10.5 fL 8.1 - 13.5 fL [place] Platelets (Bld) [#/Vol] NOT REPORTED [place] Platelets (Bld) [#/Vol] 273 10*3/uL [place] RBC (Bld) [#/Vol] 4.60 10*6/uL 3.95 - 5.1 1 m/uL [place] RBC morphology finding Nom (Bld) NOT REPORTED [place] Rubella virus IgG Ql (S) 192.8 IU/mL [place] Comment on above: REFERENCE RANGE: <5.0 NON-REACTIVE (non-immune) 5.0 TO 9.9 EQUIVOCAL >=10.0 REACTIVE (immune) Segmented neutrophils/100 WBC (Bld) 69 % High 36 - 65 % [place] Segs Absolute 6.25 [place] T. pallidum, IgG NONREACTIVE NONREACTIVE [place] Comment on above: T. pallidum antibodies are not detected. There is no serological evidence of infection with T. pallidum (early primary syphilis cannot be excluded). Retest in 2-4 weeks if syphilis is clinically suspect. WBC (Bld) [#/Vol] 9.2 10*3/uL [place] WBC (Bld) [#/Vol] 0.0 10*3/uL 0.0 per 10 0 WBC [place] WBC Morphology NOT REPORTED [place] TYPE AND SCREENon 0 05-11-2019 ABO/Rh Positive [place] Progesteroneon 05-11-2019 Progesterone 14.06 ng/mL [place] Comment on above: FEMALE (healthy): Follicular phase 0.06-0.89 Ovulation phase 0.12-12.00 Luteal phase 1.83-23.90 Postmenopausal <0.13 Protein / Creatinine Ratio, Urineon 05-11-2019 Creatinine, Ur 146.7 mg/dL 28 - 217 mg/dL [place] Protein (U) [Mass/Vol] 10 mg/dL [place] Comment on above: No normal range esta blished. Urine Total Protein Creatinine Ratio 0.07 [place] TSH with Reflexon 05-11-2019 TSH Qn 1.06 m[IU]/L [place] Vital Signs Date Time Vital Sign Value Performing Clinician Facility 01-17-2024 19:11-0400 Body height 157.5 cm [facility] 01-17-2024 19:11-0400 Body mass index (BMI) [Ratio] 39.14 kg/m2 [facility] 01-17-2024 19:11-0400 Body weight 97.07 kg [facility] 01-03-2024 19:02-0400 Body height 157.5 cm [facility] 01-03-2024 19:02-0400 Body mass index (BMI) [Ratio] 39.14 kg/m2 [facility] 01-03-2024 19:02-0400 Body weight 97.07 kg [facility] 11-01-2023 13:44-0400 Body height 157.5 cm Rhonda Rodney MD Work Phone: [facility] 11-01-2023 13:44-0400 Body mass index (BMI) [Ratio] 38.67 kg/m2 Rhonda Rodney MD Work Phone: [facility] 11-01-2023 13:44-0400 Body weight 95.94 kg Rhonda Rodney MD Work Phone: [facility] 11-01-2023 13:44-0400 Diastolic blood pressure 90 mm[Hg] Rhonda Rodney MD Work Phone: [facility] 11-01-2023 13:44-0400 Heart rate 85 /min Rhonda Rodney MD Work Phone: [facility] 11-01-2023 13:44-0400 SaO2% (BldA) [Mass fraction] 98 % Rhonda Rodney MD Work Phone: [facility] 11-01-2023 13:44-0400 Systolic blood pressure 149 mm[Hg] Rhonda Rodney MD Work Phone: [facility] 12-30-2022 12:48-0400 Respiratory rate 18 /min Anthony Foreman DO Work Phone: [facility] 12-30-2022 12:33-0400 Body temperature 98.1 [degF] Anthony Foreman DO Work Phone: [employer] [facility] [place] 12-30-2022 12:33-0400 Diastolic blood pressure 89 mm[Hg] Anthony Hiltonost DO [facility] Phone[facility] [place] 12-30-2022 12:33-0400 Heart rate 54 /min Anthony Hiltonost DO Work Phone: [facility] [place] 12-30-2022 12:33-0400 SaO2% (BldA) [Mass fraction] 98 % Anthony Hiltonost DO Work Phone: [employer] [facility] [place] 12-30-2022 12:33-0400 Systolic blood pressure 141 mm[Hg] Anthony Hiltonost DO Work Phone: [facility] [place] 12-30-2022 05:55-0400 Body height 157.5 cm Anthony Foreman DO Work Phone: [facility] [place] 12-30-2022 05:55-0400 Body mass index (BMI) [Ratio] 33.29 kg/m2 Anthony Hiltonost DO Work [facility] [place] 12-30-2022 05:55-0400 Body weight 82.56 kg Anthony Foreman DO Work Phone: [facility] [place] 12-16-2022 15:05-0400 Body height 157.5 cm [facility] 12-16-2022 15:05-0400 Body mass index (BMI) [Ratio] 34.2 kg/m2 [facility] [place] 12-16-2022 15:05-0400 Body temperature 97.5 [degF] [facility] [place] 12-16-2022 15:05-0400 Body weight 84.82 kg [facility] 2 [facility] [place] 12-16-2022 15:05-0400 Diastolic blood pressure 86 mm[Hg] [facility] [place] 12-16-2022 15:05-0400 Heart rate 63 /min [facility] 12-16-2022 15:05-0400 Respiratory rate 18 /min [facility] [place] 12-16-2022 15:05-0400 SaO2% (BldA) [Mass fraction] 100 % Stcz 2 [facility] [place] 12-16-2022 15:05-0400 Systolic blood pressure 143 mm[Hg] Stcz 2 [facility] [place] 10-13-2022 02:34-0500 Diastolic blood pressure 47 mm[Hg] Luzma Allen DO Work Phone: [facility] [place] 10-13-2022 02:34-0500 SaO2% (BldA) [Mass fraction] 96 % Luzma Allen DO Work Phone: [facility] [place] 10-13-2022 02:34-0500 Systolic blood pressure 91 mm[Hg] Luzma Allen DO Work Phone: [facility] [place] 10-12-2022 21:03-0500 Body temperature 98.49 [degF] Luzma Allen DO Work Phone: [facility] [place] 10-12-2022 21:03-0500 Heart rate 79 /min Luzma Allen DO Work Phone: [facility] [place] 10-12-2022 21:03-0500 Respiratory rate 17 /min Luzma Allen DO Work Phone: [facility] [place] 12-07-2021 16:00-0400 Body height 158.12 cm Gurinder Cortes Other [employer] Other 12-07-2021 16:00-0400 Body mass index (BMI) [Ratio] 50.62 kg/m2 Gurinder Cortes Other [employer] Other 12-07-2021 16:00-0400 Body weight 126.55 kg Gurinder Cortes Other [employer] Other 12-07-2021 16:00-0400 Diastolic blood pressure 89 mm[Hg] Gurinder Cortes Other [employer] Other 12-07-2021 16:00-0400 Respiratory rate 20 /min Gurinder Cortes Other [employer] Other 12-07-2021 16:00-0400 SaO2% (BldA) [Mass fraction] 97 % Gurinder Cortes Other [employer] Other 12-07-2021 16:00-0400 Systolic blood pressure 143 mm[Hg] Gurinder Cortes Other [employer] Other 08-17-2021 10:48-0500 Body temperature 96.91 [degF] Che Andrew DO Work Phone: [employer] 08-17-2021 10:48-0500 Diastolic blood pressure 67 mm[Hg] Che Andrew DO Work Phone: [employer] 08-17-2021 10:48-0500 Heart rate 68 /min Che Andrew DO Work Phone: [employer] 08-17-2021 10:48-0500 Respiratory rate 12 /min Che Andrew DO Work Phone: [employer] 08-17-2021 10:48-0500 SaO2% (BldA) [Mass fraction] 92 % Che Andrew DO Work Phone: [employer] 08-17-2021 10:48-0500 Systolic blood pressure 126 mm[Hg] Che Andrew DO Work Phone: [employer] 08-17-2021 07:20-0500 Body height 157.5 cm Che Andrew DO Work Phone: [employer] 08-17-2021 07:20-0500 Body mass index (BMI) [Ratio] 49.2 kg/m2 Che Morales DO Work Phone: [facility] 08-17-2021 07:20-0500 Body weight 122.02 kg Che Morales DO Work Phone: [facility] 09-26-2020 08:10-0500 BP Diastolic 76 mm[Hg] Adonay Kearns [facility] [place] 09-26-2020 08:10-0500 BP Systolic 120 mm[Hg] [facility] [place] 09-26-2020 08:10-0500 Pulse (Heart Rate) 70 /min [facility] [place] 09-26-2020 08:10-0500 Pulse Oximetry 96 % [facility] [place] 09-26-2020 08:10-0500 Respiratory Rate 24 /min [facility]onay [facility] [place] 09-26-2020 08:01-0500 Body Temperature 98.2 [degF] [facility] [place] 09-26-2020 06:45-0500 BMI (Body Mass Index) 49.86 kg/m2 [facility] [place] 09-26-2020 06:45-0500 Body weight 123.65 kg [facility] [place] 09-26-2020 06:45-0500 Height 157.5 cm [facility] [place] 11-04-2019 12:00-0400 BP Diastolic 82 mm[Hg] [facility] [place] 11-04-2019 12:00-0400 BP Systolic 138 mm[Hg] [facility] [place] 11-04-2019 12:00-0400 Pulse (Heart Rate) 92 /min [facility] [place] 11-04-2019 12:00-0400 Respiratory Rate 16 /min [facility] [place] 11-04-2019 09:00-0400 Body Temperature 97.3 [degF] [facility] [place] 11-02-2019 18:05-0400 Pulse Oximetry 99 % [facility] [place] 10-31-2019 15:29-0400 BMI (Body Mass Index) 49.2 kg/m2 [facility] [place] 10-31-2019 15:29-0400 Body weight 122.02 kg [facility] [place] 10-31-2019 15:29-0400 Height 157.5 cm [facility] [place] 09-06-2019 16:28-0500 Body weight 118 kg Gurinder Cortes DO Work Phone: [facility] Work Phone: Encounters Encounter Date Encounter Type Care Provider Facility Start: 09-09-2024 End: 09-09-2024 Emergency department patient visit RAJESH Ricks [facility] Start: 01-20-2024 End: 01-20-2024 Telephone encounter Vandana Rebollar MD Work Phone: [facility] Start: 01-17-2024 End: 01-19-2024 ambulatory RICHELLE MAYO [facility] Comment on above: Obstructive sleep ap sammy Start: 01-03-2024 End: 01-03-2024 Clinical Support Rhonda Rodney MD Work Phone: [facility] Comment on above: Arrived Start: 01-03-2024 End: 01-07-2024 ambulatory [facility] Start: 12-18-2023 End: 12-19-2023 Emergency department patient visit ROGERS Tammi PIERCE [facility] Start: 12-01-2023 ambulatory [facility] Start: 11-08-2023 Documentation procedure Rhonda Rodney MD Work Phone: [facility] Start: 11-03-2023 Telephone encounter Rhonda méndez MD Work Phone: [facility] Comment on above: Sleep Lab (HST) Start: 11-01-2023 End: 11-01-2023 ambulatory RHONDA RASHAUN [facility] Start: 11-01-2023 End: 11-01-2023 Office outpatient new 45 minutes Rhonda Rodney MD Work Phone: [facility] Comment on above: SARA (obstructive sle ep apnea) (Primary Dx); ; H/O gastric sleeve Start: 09-29-2023 Orders Only Rajesh Bingham MD Work Phone: [facility] Start: 12-30-2022 End: 12-30-2022 ambulatory [facility] Start: 12-30-2022 End: 12-30-2022 Subsequent hospital visit by physician Anthony Foreman DO Work Phone: [facility] Comment on above: S/p RALH, BS, cysto 12/30/22 (Primary Dx); Pelvic pain in female; S/P endometrial ablation; Abnormal uterine bleeding Start: 12-29-2022 End: 12-29-2022 ambulatory Jose Matute Other [employer] Other Start: 12-29-2022 Telephone encounter Jose Matute [facility] Start: 12-28-2022 (Procedure) Short Jose Matute [facility] Start: 12-28-2022 End: 12-28-2022 ambulatory NON STAFF [facility] [employer] Other Start: 12-16-2022 End: 12-21-2022 ambulatory [facility] Start: 12-16-2022 Encounter for other preprocedural examination [facility] Start: 12-16-2022 End: 12-20-2022 Patient encounter status Stcz 2 [facility] Pre-Admit Testing Start: 12-16-2022 End: 12-20-2022 Subsequent hospital visit by physician Kayla Cuevas Rm 2 [facility] Pre-Admit Testing Comment on above: Pre-op testing Start: 12-15-2022 End: 12-16-2022 ambulatory [facility] Start: 12-09-2022 End: 12-09-2022 ambulatory Jose Matute Other [employer] Other Start: 12-09-2022 Office outpatient vi sit 25 minutes Jose Matute [facility] Start: 11-18-2022 End: 11-18-2022 ambulatory Jose Matute Facility:[facility] Start: 11-18-2022 End: 11-18-2022 ambulatory DO Gurinder Cortes Work Phone: [facility] Work Phone: Start: 11-18-2022 End: 11-18-2022 Patient encounter procedure DO Gurinder Cortes Work Phone: [facility] [address] Work Phone: Start: 11-04-2022 End: 11-04-2022 ambulatory Jose Katdeena Other [facility] [employer] Other Start: 11-04-2022 Office outpatient vi sit 25 minutes Jose Matute [facility] Start: 10-14-2022 End: 10-14-2022 ambulatory ANTHONY Norma [facility] Start: 10-13-2022 End: 10-13-2022 Emergency department patient visit [facility] Rui [facility] Start: 10-12-2022 End: 10-13-2022 Emergency department patient visit [facility] DO Work Phone: [facility] Comment on above: Lower abdominal pain (Primary Dx) Start: 01-06-2022 End: 01-06-2022 ambulatory Gurinder Cortes Other [employer] Other Start: 01-06-2022 Telephone encounter Gurinder Alvarez i [facility] Start: 12-07-2021 End: 12-07-2021 ambulatory Gurinder Cortes Other [employer] Other Start: 12-07-2021 Office outpatient vi sit 25 minutes Gurinder RICH[facility] Start: 08-17-2021 End: 08-17-2021 Subsequent hospital visit by physician Che Morales DO Work Phone: [facility] Start: 06-29-2021 End: 06-29-2021 Subsequent hospital visit by physician Gurinder Cortes DO Work Phone: [facility] Comment on above: PCOS (polycystic ova jt syndrome) Start: 09-26-2020 End: 09-26-2020 Subsequent hospital visit by physician Adonay Kearns Work Phone: REYES [facility]y [place] Start: 09-22-2020 End: 09-22-2020 Subsequent hospital visit by physician Kayla Covid Screening Schedule CZ Covid Screening Comment on above: Pre-op testing (Prim jessica Dx) Start: 06-10-2020 End: 06-10-2020 Subsequent hospital visit by physician Gurinder Carty Lab Draw Comment on above: PCOS (polycystic ova jt syndrome); Morbid obesity with BMI of 45.0-49.9, adult ([facility]) Start: 06-05-2020 End: 06-05-2020 Subsequent hospital visit by physician Gurinder Carty Lab Draw Comment on above: Hair loss; Encounter for annual routine gynecological examination; Vaginal dryness Start: 05-23-2020 End: 05-23-2020 Subsequent hospital visit by physician Gurinder RYAN LAB DOCTOR Start: 10-31-2019 End: 11-04-2019 Evaluation and management of inpatient Anthony Green Kellen Work Phone: STLOULOU Ignacio Post Comment on above: RLTCS 10/31/ M Apg 8/9 Wt 6#1 (Primary Dx) Start: 09-27-2019 End: 09-27-2019 Subsequent hospital visit by physician Gurinder RYAN LAB DOCTOR Comment on above: 29 weeks gestation o f Start: 09-27-2019 End: 09-27-2019 Subsequent hospital visit by physician Gurinder Carty Lab Draw Comment on above: Hypothyroidism, unsp ecified type; 24 weeks gestation of Start: 09-06-2019 End: 09-06-2019 Subsequent hospital visit by physician Gurinder Cortes DO Work Phone: REYES Carty Lab Draw Start: 05-30-2019 End: 05-30-2019 Subsequent hospital visit by physician Gurinder Carty Lab Draw Start: 05-11-2019 End: 05-11-2019 Subsequent hospital visit by physician Gurinder Carty Lab Draw Comment on above: 9 weeks gestation of ; Chronic hypertension in Procedures Date Procedure Procedure Detail Performing Clinician Start: 12-30-2022 End: 12-30-2022 Laparoscopy w total hysterectomy uterus 250 gm/< Anthony Foreman DO Work Phone: Start: 12-30-2022 Urine test visual color cmprsn meths Anthony Foreman DO Work Phone: Start: 12-16-2022 Antibody screen Stcz 2 Start: 12-16-2022 Urnls dip stick/tablet rgnt auto w/o microscopy Anthony Foreman DO Work Phone: Start: 12-16-2022 Ecg routine ecg w/least 12 lds i&r only Adam Yung MD Work Phone: Start: 12-16-2022 Blood typing serologic abo Anthony Foreman DO Work Phone: Start: 12-16-2022 Comprehensive metabolic panel Anthony Foreman DO Work Phone: Start: 12-15-2022 Microscopic observation [Identifier] in Cervix by Cyto stain Anthony Foreman DO Work Phone: Start: 11-18-2022 XR pre/post mri xray DO Gurinder Alvarez i Work Phone: Start: 11-18-2022 MR thoracic spine wo con DO Gurinder wilson Work Phone: Start: 10-13-2022 Ct abdomen & pelvis w/contrast material Luzma Fabian Allen DO Work Phone: Start: 10-13-2022 Comprehensive metabolic panel Luzma Fabian Allen DO Work Phone: Start: 10-12-2022 Urinalysis microscopic only Luzma Fabian Allen DO Work Phone: Start: 10-12-2022 Urine test visual color cmprsn meths Luzma Fabian Allen DO Work Phone: Start: 07-27-2022 Adult depression screening assessment Rajesh Bingham MD Work Phone: Start: 08-17-2021 Basic metabolic panel calcium total Clementina Fleming MD Work Phone: Start: 08-17-2021 Urine test visual color cmprsn meths Che Morales DO Work Phone: Start: 06-29-2021 Gonadotropin follicle stimulating hormone Che Morales DO Work Phone: Start: 09-26-2020 Urine test visual color cmprsn meths Daonay Norma Kearns Work Phone: Start: 06-10-2020 25 hydroxy includes fractions if performed Adonay Kearns Work Phone: Start: 06-10-2020 Assay of ferritin Adonay Kearns Work Phone: Start: 06-10-2020 Assay of magnesium Adonay Kearns Work Phone: Start: 06-10-2020 Assay of parathormone Adonay Kearns Work Phone: Start: 06-10-2020 Iron binding capacity Adonay Kearns Work Phone: Start: 06-10-2020 VITAMIN B12 & FOLATE Adonay Kearns Work Phone: Start: 06-05-2020 Assay of thyroid stimulating hormone tsh Anthony Foreman Work Phone: Start: 06-05-2020 Blood count complete auto&auto difrntl wbc Anthoyn Foreman Work Phone: Start: 06-05-2020 Comprehensive metabolic panel Anthony Foreman Work Phone: Start: 06-05-2020 Hemoglobin glycosylated a1c Anthony Foreman Work Phone: Start: 06-05-2020 Lipid panel Anthony Foreman Work Phone: Start: 05-23-2020 Microscopic observation [Identifier] in Cervix by Cyto stain Gurinder Cortes DO Work Phone: Start: 11-04-2019 Assay of magnesium Gardenia Joey Work Phone: Start: 11-03-2019 Assay of magnesium Gardenia Joey Work Phone: Start: 11-03-2019 Assay of magnesium Gardenia Joey Work Phone: Start: 11-02-2019 Assay of magnesium Gardenia Joey Work Phone: Start: 11-02-2019 Assay of magnesium Gardenia Joey Work Phone: Start: 11-02-2019 Blood count complete auto&auto difrntl wbc Gardenia Joey Work Phone: Start: 11-01-2019 End: 08-04-2020 H/O: section RLTCS 11/01/19 M Apg 8/9 Wt 6#1 Gurinder Cortes DO Work Phone: Start: 11-01-2019 Antibody screen Anthony Foerman Start: 11-01-2019 Protein total xcpt refractometry urine Gardenia Joey Work Phone: Start: 11-01-2019 Blood typing serologic abo Argentina Viktoria Work Phone: Start: 11-01-2019 Blood count complete automated Argentina Viktoria Work Phone: Start: 11-01-2019 Comprehensive metabolic panel Argentina Viktoria Work Phone: Start: 10-31-2019 Assay of thyroid stimulating hormone tsh Gardenia Joey Work Phone: Start: 10-31-2019 Blood count complete auto&auto difrntl wbc Gardenia Joey Work Phone: Start: 10-31-2019 Comprehensive metabolic panel Gardenia Cook Work Phone: Start: 10-31-2019 Protein total xcpt refractometry urine Gardenia Cook Work Phone: Start: 10-31-2019 Urinalysis microscopic only Gardenia Cook Work Phone: Start: 10-31-2019 Urnls dip stick/tablet rgnt auto w/o microscopy Gardenia Cook Work Phone: Start: 09-27-2019 Urinalysis microscopic only Jessica Patebobracheal Work Phone: Start: 09-27-2019 Urnls dip stick/tablet rgnt auto w/o microscopy Jessica Michelle Work Phone: Start: 09-27-2019 Assay of thyroid stimulating hormone tsh Anthony Foreman Work Phone: Start: 09-27-2019 Blood count complete auto&auto difrntl wbc Anthony Green Kellen Work Phone: Start: 09-06-2019 Assay of free thyroxine Chandu Vargas Work Phone: Start: 09-06-2019 Creatinine clearance Chandu Rondon MD Work Phone: Start: 08-25-2019 End: 08-04-2020 H/O: section Hx of CS x1 (G1 2/2 NRFHT) Gurinder Cortes DO Work Phone: Start: 05-30-2019 Assay of progesterone Harry aMguire Work Phone: Start: 05-11-2019 Antibody screen Gurinder Sophia Start: 05-11-2019 Antibody hiv-1&hiv-2 single result Jessica Martinez Work Phone: Start: 05-11-2019 Assay of progesterone Aiyana Bateman Work Phone: Start: 05-11-2019 Assay of thyroid stimulating hormone tsh Jessica Martinez Work Phone: Start: 05-11-2019 Blood typing serologic abo Jessica Martinez Work Phone: Start: 05-11-2019 Comprehensive metabolic panel Jessica Martinez Work Phone: Start: 05-11-2019 Glucose tolerance test gtt 3 specimens Jessica Martinez Work Phone: Start: 05-11-2019 Gonadotropin chorionic quantitative Jessica Martinez Work Phone: Start: 05-11-2019 Obstetric panel Jessica Martinez Work Phone: Start: 05-11-2019 Protein total xcpt refractometry urine Jessica Martinez Work Phone: Start: 03-15-2018 End: 08-04-2020 H/O: section PLTCS 03/14/18 F Apg 8/9 Wt 8#9 Gurinder Cortes DO Work Phone: Plan of Treatment Date Care Activity Detail Author Start: 2041 Shingles Vaccine (1 of 2) Shingles Vaccine (1 of 2) [place] Start: 09-27-2029 DTaP,Tdap and Td Vaccines (3 - Td or Tdap) DTaP,Tdap and Td Vaccines (3 - Td or Tdap) [facility] Start: 09-27-2029 DTaP/Tdap/Td vaccine (3 - Td or Tdap) DTaP/Tdap/Td vaccine (3 - Td or Tdap) [facility] Start: 09-27-2029 DTaP/Tdap/Td vaccine (3 - Td) DTaP/Tdap/Td vaccine (3 - Td) [facility] Work Phone: Start: 01-13-2028 DTaP/Tdap/Td vaccine (2 - Td) DTaP/Tdap/Td vaccine (2 - Td) [place] Start: 12-16-2027 Screening for malignant neoplasm of cervix [facility] Start: 12-15-2025 Screening for malignant neoplasm of cervix Pap smear [facility] Start: 01-16-2025 Adult BMI Screening Adult BMI Screening [facility] Start: 01-16-2025 Tobacco Screening Tobacco Screening [facility] Start: 01-02-2025 Adult BMI Screening Adult BMI Screening [facility] Start: 01-02-2025 Tobacco Screening Tobacco Screening [facility] Start: 10-31-2024 Adult BMI Screening Adult BMI Screening [facility] Start: 10-31-2024 Tobacco Screening Tobacco Screening [facility] Start: 06-07-2024 Adult BMI Screening Adult BMI Screening [facility] Start: 06-07-2024 Tobacco Screening Tobacco Screening [facility] Start: 04-22-2024 Influenza vaccination Influenza Vaccine [facility] Start: 02-14-2024 End: 02-14-2024 Patient encounter procedure 02/14/2024 2:30 PM EDT Office Visit [facility] [address] [facility] [place] [address] Vandana Rebollar MD [address] [facility] [address] [place] [address] [facility] Start: 01-04-2024 End: 01-04-2024 Patient encounter procedure 01/04/2024 8:00 AM EDT Office Visit [facility] [address] [place] [address] [phone] Florinda Tan APRN-EDGING MACHINE FEEDER [address] [place] [address] [phone] [facility] Start: 12-01-2023 End: 12-01-2023 Clinical Support 12/01/2023 7:30 PM EDT Clinical Support [facility] [address] [place] [address] Rhonda Rodney MD [address] , [facility] [address] [place] [address] [facility] Start: 11-01-2023 End: 11-01-2023 Patient encounter procedure 11/01/2023 2:00 PM EDT [facility] [address] [place] [address] Rhonda Rodney MD [address] [facility], [facility] [address] [place] [address] [facility] Start: 07-27-2023 Depression Screening Depression Screening [facility] Start: 05-23-2023 Screening for malignant neoplasm of cervix [facility] Start: 04-22-2023 Influenza vaccination Influenza Vaccine [facility] Start: 02-23-2023 End: 02-23-2023 Patient encounter procedure 02/23/2023 Office Visit Obstetrics and Gynecology Anthony Foreman, DO [address] [address] [facility] [place] Start: 01-19-2023 End: 01-19-2023 Patient encounter procedure 01/19/2023 Office Visit Obstetrics and Gynecology Anthony Foreman, DO [address] [address] [facility] [place] Start: 12-30-2022 End: 12-30-2022 Admission to same day surgery center 12/30/2022 Surgery IP Unit Anthony Foreman, DO [address] [address] [employer]OT[employer] XI ASSISTED LAPAROSCOPIC HYSTERECTOMY W/ BILATERAL SALPINGECTOMY POSSIBLE LEFT OOPHORECTOMY [facility] OR Comment on above: ROBOTIC XI ASSISTED LAPAROSCOPIC HYSTERE CTOMY W/ BILATERAL SALPINGECTOMY POSSIBLE LEFT OOPHORECTOMY Start: 12-30-2022 End: 12-30-2022 Cystourethroscopy CYSTOSCOPY Pelvic pain in female S/P endometrial ablation Abnormal uterine bleeding 12/30/2022 7:30 AM EDT [facility] Start: 12-30-2022 End: 12-30-2022 Laparoscopy w total hysterectomy uterus 250 gm/< HYSTERECTOMY ABDOMINAL LAPAROSCOPIC ROBOTIC XI Pelvic pain in female S/P endometrial ablation Abnormal uterine bleeding 12/30/2022 7:30 AM [facility] Start: 12-30-2022 Subsequent hospital visit by physician 12/30/2022 Hospital Encounter IP Unit Anthony Foreman DO [address] [address] [address] [place] Start: 11-01-2022 End: 11-01-2022 Telemedicine consultation with patient 11/01/2022 Telemedicine Obstetrics and Gynecology Anthony Foreman DO [address] [address] [facility] [place] Start: 08-30-2022 Screening for malignant neoplasm of cervix HPV (without or with Pap) [facility] Start: 08-17-2022 Creatinine measurement Creatinine monitoring [facility] Start: 08-17-2022 Potassium monitoring Potassium monitoring [facility] Start: 06-29-2022 Thyroid stimulating hormone measurement TSH testing [facility] Start: 09-03-2021 End: 09-03-2021 Patient encounter procedure 09/03/2021 Office Visit Obstetrics and Gynecology Jessica Martinez, OUTBOARD MOTOR ASSEMBLER - EDGING MACHINE FEEDER [address] [address] [facility] [place] Start: 08-17-2021 End: 08-17-2021 Hysteroscopy endometrial ablation DILATATION AND CURETTAGE HYSTEROSCOPY CAUTERY ABLATION DYSFUNCTIONAL UTERINE BLEEDING / POLYCYSTIC OVARIAN SYNDROME COVID 08/1308/17/2021 9:00 AM [facility] Start: 07-07-2021 End: 07-07-2021 Professional / ancillary services management 07/07/2021 Ancillary Procedure Obstetrics and Gynecology [facility] [place] Start: 06-05-2021 Creatinine measurement Creatinine monitoring [facility] Start: 06-05-2021 Potassium monitoring Potassium monitoring [facility] Start: 06-05-2021 Thyroid stimulating hormone measurement TSH testing [facility] Start: 06-05-2021 TSH Qn TSH testing [place] Start: 05-23-2021 Screening for malignant neoplasm of cervix Cervical cancer screen [place], [place] Start: 04-22-2021 Influenza vaccination Flu vaccine (#1) [facility] Start: 10-30-2020 TSH Qn TSH testing [place] Start: 10-30-2020 TSH testing TSH testing [place] Start: 10-20-2020 End: 10-20-2020 Office Visit 10/20/2020 Office Visit Anne Marie Wagner, OUTBOARD MOTOR ASSEMBLER - EDGING MACHINE FEEDER [address] [place] [address] [facility] [place] Start: 09-26-2020 End: 09-26-2020 Hospital Encounter [facility] [place] Comment on above: EGD ESOPHAGOGASTRODUODENOSCOPY Start: 09-25-2020 End: 09-25-2020 Nurse Only 09/25/2020 Nurse Only Bariatrics [facility] Start: 09-22-2020 End: 09-19-2021 COVID-19 COVID-19 Lab Routine Pre-op testing Expected: 09/22/2020, Expires: 09/19/2021 [place] Comment on above: Expected: 09/22/2020, Expires: Start: 09-06-2020 TSH testing TSH testing [facility] Work Phone: Start: 07-03-2020 End: 07-03-2020 Office Visit 07/03/2020 Office Visit Anne Marie Wagner, OUTBOARD MOTOR ASSEMBLER - EDGING MACHINE FEEDER [address] [place] [address] [facility] [place] Start: 06-23-2020 End: 06-23-2020 Nurse Only 06/23/2020 Nurse Only Bariatrics [facility] Start: 06-10-2020 End: 06-10-2020 Nurse Only 06/10/2020 Nurse Only [facility]ariatrics [facility] Start: 06-05-2020 End: 06-05-2020 Office Visit 06/05/2020 Office Visit Bariatrics Adonay Kearns DO [address] [facility] [address] [place] [address] [phone] [facility] Start: 05-11-2020 Creatinine monitoring Creatinine monitoring [place] Start: 05-11-2020 Potassium monitoring Potassium [place] Start: 05-11-2020 TSH testing T[place] testing [place] Start: 04-22-2020 Influenza vaccination Flu vaccine (#1) [place] Start: 11-29-2019 End: 11-29-2019 Nurse Only 11/29/2019 Nurse Only [facility] Start: 11-22-2019 End: 11-22-2019 Nurse Only 11/22/2019 Nurse Only [facility]s [facility] Start: 11-15-2019 End: 11-15-2019 Nurse Only 11/15/2019 Nurse Only [facility]s [facility] Start: 11-08-2019 End: 11-08-2019 Nurse Only 11/08/2019 Nurse Only Obstetrics and Gynecology [facility] [place] Start: 11-01-2019 End: 11-01-2019 Nurse Only 11/01/2019 Nurse Only [facility]s [facility]cology [facility] Start: 10-25-2019 End: 10-25-2019 Nurse Only 10/25/2019 Nurse Only Obstetrics and Gynecology [facility] [place] Start: 10-22-2019 End: 10-22-2019 Routine 10/22/2019 Routine Perinatology [facility] Start: 09-27-2019 End: 09-27-2019 Patient encounter procedure 09/27/2019 Routine Obstetrics and Gynecology Jessica Martinez, OUTBOARD MOTOR ASSEMBLER - EDGING MACHINE FEEDER [address] [address] [phone] [facility] [place] Start: 09-24-2019 End: 09-24-2019 Patient encounter procedure 09/24/2019 Routine Perinatology [facility] Start: 09-01-2019 Cervical cancer screen Cervical cancer [place] Start: 09-01-2019 Screening for malignant neoplasm of cervix Cervical cancer [place] Start: 08-27-2019 End: 08-27-2019 Routine 08/27/2019 Routine Perinatology [facility] Start: 06-08-2019 End: 06-08-2019 Routine 06/08/2019 Routine Obstetrics and Gynecology Anthony Foreman DO [facility] [place] [address] [place] [address] [facility] [place] Start: 05-16-2019 End: 05-16-2019 Nurse Only 05/16/2019 Nurse Only Obstetrics and Gynecology [facility] [place] Start: 04-22-2019 Influenza vaccination Flu vaccine (#1) [place] Start: 01-31-2019 TSH testing TSH testing [place] Start: 2009 Adult BMI Follow Up Plan Adult BMI Follow Up Plan [facility] Start: 2009 Hepatitis C screening Hepatitis C screen [facility] Start: 2004 Varicella Vaccine (1 of 2 - 13+ 2-dose series) Varicella Vaccine (1 of 2 - 13+ 2-dose series) [place], [place] Start: 2003 COVID-19 Vaccine (1) COVID-19 Vaccine (1) [facility] Start: 2003 Depression Screen Depression Screen [facility] Start: 1996 COVID-19 Vaccine (1) COVID-19 Vaccine (1) [facility] Start: 1992 Varicella vaccine (1 of 2 - 2-dose childhood series) Varicella vaccine (1 of 2 - 2-dose childhood series) [facility] Start: 1991 COVID-19 Vaccine (#1) COVID-19 Vaccine (#1) [facility] Start: 1991 Hepatitis C screening Hepatitis C screen [facility] End: 09-27-2019 Bacteria identified Cx Nom (U) Urine Culture Microbiology Routine Once for 1 Occurrences starting 09/27/2019 until 09/27/2019 [employer] Work Phone: Comment on above: Once for 1 Occurrences starting 09/27/19 until 09/27/2019 Bacteria identified Cx Nom (U) U rine Culture Microbiology Routine 09/27/2019 11:14 PM EST [employer] Phone: End: 09-26-2020 Blood glucose - POCT Blood glucose - POCT Point of Care Testing Routine One Time for 1 Occurrences starting 09/26/2020 until 09/26/2020 [employer] Comment on above: One Time for 1 Occurrences starting 12/2020 until 09/26/2020 EKG 12 Lead EKG 12 Lead ECG Routine 05/11/2019 8:39 AM EDT [employer] End: 10-31-2024 Home sleep study Home sleep study Sleep Center Routine SARA (obstructive sleep apnea) 1 Occurrences starting 11/01/2023 until 10/31/2024 [facility] Work Phone: Comment on above: 1 Occurrences starting 11/01/2023 until 10/31/2024 Incentive spirometry Incentive s pirometry Respiratory Care Routine Every 2hr while awake until discontinued starting 11/01/2019 [employer] Comment on above: Every 2hr while awake until discontinued starting 11/01/2019 Initiate Oxygen Therapy Protocol Initiate Oxygen Therapy Protocol Respiratory Care Routine Daily until discontinued starting 11/01/2019 [employer] Comment on above: Daily until discontinued starting 2019 End: 11-08-2019 Magnesium [Mass/Vol] Magnesium Lab Routine Every 12 hours (Lab) for 7 Days starting 11/02/2019 until 11/08/2019, 5 completed [employer] Comment on above: Every 12 hours (Lab) for 7 Days starting 11/02/2019 until 11/08/2019, 5 completed Oxygen therapy [Minimum Data Set ] Initiate Oxygen Therapy Protocol Respiratory Care Routine Daily until discontinued starting 09/26/2020 [employer] Comment on above: Daily until discontinued starting 2020 Oxygen therapy [Minimum Data Set ] Initiate Oxygen Therapy Protocol Respiratory Care Routine Daily until discontinued starting 08/17/2021 [employer] Phone: Comment on above: Daily until discontinued starting 2020 Oxygen therapy [Minimum Data Set ] Initiate Oxygen Therapy Protocol Respiratory Care Routine Daily until discontinued starting 08/17/2021 [employer] Phone: Comment on above: Daily until discontinued starting 2020 Oxygen therapy [Minimum Data Set ] Initiate Oxygen Therapy Protocol Respiratory Care Routine Daily until discontinued starting 12/30/2022 [employer] Phone: Comment on above: Daily until discontinued starting 2022 Phase I & II - metered glucose P hase I & II - metered glucose Point of Care Testing Routine As Needed until discontinued starting 09/26/2020 [employer] Comment on above: As Needed until discontinued starting Phase I & II - metered glucose P hase I & II - metered glucose Point of Care Testing Routine As Needed until discontinued starting 08/17/2021 [employer] Phone: Comment on above: As Needed until discontinued starting End: 09-26-2020 , urine POCT , urine POCT Point of Care Testing Routine One Time for 1 Occurrences starting 09/26/2020 until 09/26/2020 [employer] Comment on above: One Time for 1 Occurrences starting 12/2020 until 09/26/2020 Spirometry panel Incentive scarlett metry Respiratory Care Routine Every 2hr while awake until discontinued starting 12/30/2022 [employer] Phone: Comment on above: Every 2hr while awake until discontinued starting 12/30/2022 End: 11-02-2019 Surgical Pathology Surgical Pathology Lab Routine Once for 1 Occurrences starting 11/02/2019 until 11/02/2019 [employer] [facility] Comment on above: Once for 1 Occurrences starting 11/02/19 20 until 11/02/2019 Surgical Pathology Surgical Path ology Lab Routine Release Upon Ordering for 1 Occurrences starting 09/26/2020 [facility] Comment on above: Release Upon Ordering for 1 Occurrences starting 09/26/2020 Surgical Pathology Surgical Path ology Lab Routine Release Upon Ordering for 1 Occurrences starting 08/17/2021 [employer] Phone: Comment on above: Release Upon Ordering for 1 Occurrences starting 08/17/2021 Surgical Pathology Surgical Path ology Lab Routine Pelvic pain in female S/P endometrial ablation Abnormal uterine bleeding Release Upon Ordering for 1 Occurrences starting 12/30/2022 [employer] Phone: Comment on above: Release Upon Ordering for 1 Occurrences starting 12/30/2022 Surgical Pathology Surgical Path ology Lab Routine Pelvic pain in female S/P endometrial ablation Abnormal uterine bleeding Release Upon Ordering for 1 Occurrences starting 12/30/2022 [employer] Phone: Comment on above: Release Upon Ordering for 1 Occurrences starting 12/30/2022 End: 12-30-2022 SURGICAL PATHOLOGY REPORT SURGICAL PATHOLOGY REPORT Lab Routine Once for 1 Occurrences starting 12/30/2022 until 12/30/2022 [employer] Phone: Comment on above: Once for 1 Occurrences starting 12/31/19 until 12/30/2022 End: 06-10-2020 Vitamin A Vitamin A Lab Routine PCOS (polycystic ovarian syndrome) Morbid obesity with BMI of 45.0-49.9, adult (HCC) 1 Occurrences starting 06/10/2020 until 06/10/2020 [employer] [place] Comment on above: 1 Occurrences starting 06/10/2020 until 06/10/2020 Vitamin A Vitamin A Lab Routine PCOS (polycystic ovarian syndrome) Morbid obesity with BMI of 45.0-49.9, adult (HCC) 06/10/2020 9:31 AM EDT [place] End: 06-10-2020 Vitamin B1 Vitamin B1 Lab Routine PCOS (polycystic ovarian syndrome) Morbid obesity with BMI of 45.0-49.9, adult (HCC) 1 Occurrences starting 06/10/2020 until 06/10/2020 [employer] [place] Comment on above: 1 Occurrences starting 06/10/2020 until 06/10/2020 Vitamin B1 Vitamin B1 Lab Routine PCOS (polycystic ovarian syndrome) Morbid obesity with BMI of 45.0-49.9, adult (HCC) 06/10/2020 9:31 AM EDT [place], [place] End: 06-10-2020 Zinc Zinc Lab Routine PCOS (polycystic ovarian syndrome) Morbid obesity with BMI of 45.0-49.9, adult (HCC) 1 Occurrences starting 06/10/2020 until 06/10/2020 [place], [place] Comment on above: 1 Occurrences starting 06/10/2020 until 06/10/2020 Zinc Zinc Lab Routine PCOS (polycystic ovarian syndrome) Morbid obesity with BMI of 45.0-49.9, adult (HCC) 06/10/2020 9:31 AM EDT [place], [place] Immunizations Immunization Date Immunization Notes Care Provider Fa [facility] 07-14-2022 influenza, injectable, quadrivalent, preservative free Stcz 2 [facility] Work Phone: 07-14-2022 influenza virus vaccine, unspecified formulation Rajesh Bingham MD Work Phone: [facility] [employer] 11-01-2019 diphtheria, tetanus toxoids and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 care of you at [facility]. In the next few days you may receive a survey by mail or e-mail asking about the care you received during this visit. Please complete this if you are able, as this feedback helps us provide the best care possible. * Attachments The following attachments cannot be sent through Care Everywhere. * Abdominal Pain (Slovak) [facility] [employer] Phone: [phone] 260-261408-04-2022 Note [id number]#[id number]05-18-2022 Evaluation note* Encounter Date Diagnosis Assessment Notes Treatment Notes Treatment Clinical Notes December, Depression with anxiety (ICD-10 - F41.8) [employer] Other 04-18-2022 Evaluation note* Encounter Date Diagnosis Assessment Notes Treatment Notes Treatment Clinical Notes Nov, Depression with anxiety (ICD-10 - F41.8) After discussing risks, benefits, possible SEs, and alternative treatment options, patient opts for a trial of Cymbalta, both to help with depression/anxiety and also her chronic pain. She will stop the medication and notify me immediately of any SEs, but otherwise avoid stopping the medication abruptly. Plan for recheck in 4 weeks but certainly sooner for change/worsening. Immediate medical attention for any SI/HI or other change/worsening. [employer] Other 03-01-2022 Note [id number]:127[facility] 08-17-2021 History of Present illness Narrative* Denise Morfin RN - 08/17/2021 7:33 AM EST UCG negative documented in this encounterMerSuper [facility] Games Phone: [phone] Reason for visit Narrative* Auth/Cert Specialty Diagnoses / Procedures Referred By Bret guzman Referred To Contact Diagnoses Dysfunctional uterine bleeding COVID DYSFUNCTIONAL UTERINE BLEEDING /DYSFUNCTIONAL UTERINE BLEEDINGE COVID 08/13 Procedures MO HYSTEROSCOPY,W/ENDOMETRIAL ABLATION DILATATION AND CURETTAGE HYSTEROSCOPY CAUTERY ABLATION RENATA Che Morales DO [address] [place] [address] [employer] [address] [place] [address] Referral ID Status Reason Start Date Expiration Date Visits Re quested Visits Authorized [id number] 1 1 [employer] Phone: [email or web address] note* Diagnosis PCOS (polycystic ovarian syndrome) Polycystic ovaries documented in this encounter [employer] Phone: evaluation note* Diagnosis Hscope D&C w/ Novasure ablation 08/17/21- Primary documented in this encounter [employer] Phone: [email or web address] note* Diagnosis Lower abdominal pain- Primary Abdominal pain, other specified site documented in this encounter [employer] Phone: evalsweoee noteNo assessment information [facility] Work Phone: Evaluation note* Diagnosis Pre-op testing Preoperative examination, unspecified Pelvic pain in female Unspecified symptom associated with female genital organs S/P endometrial ablation Other postprocedural status Abnormal uterine bleeding Unspecified disorder of menstruation and other abnormal bleeding from female genital tract documented in this encounter [employer] Phone: [email or web address] noteNo InformationN[employer] Other Evaluation note* Diagnosis Obstructive sleep apnea Obstructive sleep apnea (adult) (pediatric) [facility]* Diagnosis SARA (obstructive sleep apnea)- Primary Obstructive sleep apnea (adult) (pediatric) Family disruption due to divorce or legal separation H/O gastric sleeve documented in this encounter [facility] general Narrative - Reported* Type Description Date Medical History PCOS Medical History ENDOMETRIOSIS Medical History IVF therapy Surgical History BILATERAL CARPAL TUNNEL RELEASE Surgical History LEFT ANKLE REPAIR Surgical History RIGHT SHOULDER REPAIR Surgical History Ulnar release in Right arm Surgical History C section [facility] 2017 Surgical History 10/2019 Surgical History right-carpel tunnel Surgical History right arm surgery 10/21/21 Hospitalization History see surgical hx Hospitalization History C section 02/2018 [employer] Other Hospital Discharge instructions* Instructions* Gwendolyn Diaz RN - 08/17/2021 DISCHARGE INSTRUCTIONS FOR GENERAL ANESTHESIA In order to continue your care at home, please follow the instructions below. Anesthesia Do not drink any alcoholic beverages or make any legal or important decisions for 24 hours. If your surgery was on an extremity or abdomen, do not drive or operate any machinery until yoursurgeon approves, otherwise do not drive or operate any machinery for 24 hours or as restricted by your surgeon. Pain Medications Please do not drive, operate machinery, or drink alcoholic beverages while taking any prescribed pain medication. Diet - Start out eating lightly (broth, soup, crackers, toast, etc.) advancing as tolerated to yourusual diet. Try to avoid spicy and greasy/fatty foods for 24 hours. Drink plenty of fluids after surgery, unless you are on a fluid restriction. Avoid milk/milk product for several hours. Call your surgeon for the following: ? You have pain that does not get better after you take pain medicine. ? For an oral temperature (by mouth) is 101 degrees or higher, chills, or excessive sweating. ? You have increasing and progressive bleeding or drainage from surgery site. ? Signs of an infection: increased swelling, redness, warmth, or hardness around surgery area or yellow or green drainage. ? Persistent nausea or vomiting and can t keep fluids down. ? If you are unable to urinate within 8 hours of surgery. ? Redness or swelling at IV site. ? For any questions or concerns you may have. * Attachments The following attachments cannot be sent through Care Everywhere. * Endometrial Ablation: Post-op (Slovak) * Hysteroscopy - Dilation and Curettage: Post-op (Slovak) documented [facility] this [facility] Phone: InstructionsNot on filedocumented in this encounter [facility]Not on filedocumented in this encounter [facility]InstructionsNot on filedocumented in this encounter [facility]ructionsNot on filedocumented in this encounter [facility]ructionsNot on filedocumented in this encounter [facility] Assessments Diagnosis 9 weeks gestation of state, incidental Chronic hypertension in Benign essential hypertension complicating , childbirth, and the puerperium, unspecified as to episode of care Diagnosis Hypothyroidism, unspecified type 24 weeks gestation of state, incidental Diagnosis 29 weeks gestation of state, incidental Diagnosis RLTCS 11/01/19 M Apg 03/30 Wt 6#1 delivery, without mention of indication, unspecified as to episode of care 33 weeks gestation of state, incidental Abnormal uterine bleeding Unspecified disorder of menstruation and other abnormal bleeding from female genital tract Hx of KEIRY I on colposcopy bx (2016) Mild dysplasia of cervix Dysmenorrhea Insulin resistance complicating Abnormal maternal glucose tolerance, complicating , childbirth, or the puerperium, unspecified as to episode of care PCOS Polycystic ovaries IVF Hypothyroidism Unspecified hypothyroidism Hx of gHTN (G1) Hx of PPD (G1) Short interval Hx of CS x1 (G1 2/2 NRFHT) Other postprocedural status cHTN (meds) 34 weeks gestation of state, incidental CHTN w/ DIRK PreE w/ SFs (DILLARD) Severe pre-eclampsia, unspecified as to episode of care Postoperative state Other postprocedural status Diagnosis Hair loss Alopecia, unspecified Encounter for annual routine gynecological examination Vaginal dryness Other specified symptom associated with female genital organs Diagnosis PCOS (polycystic ovarian syndrome) Polycystic ovaries Morbid obesity with BMI of 45.0-49.9, adult (HCC) Diagnosis Pre-op testing- Primary Preoperative examination, unspecified Advance Directives Documents on File Type Date Recorded 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 anation Advance Directives and Living Will Power of Social Media Manager Latest Code Status on File Code Status Date Activated Date Inactivated Comments Full Code 03/14/2018 8:53 PM 03/17/2018 1:54 PM Full Code 03/13/2018 12:43 PM 03/14/2018 8:53 PM Full Code 03/11/2018 12:42 PM 03/11/2018 5:50 PM Full Code 02/27/2018 2:36 PM 02/27/2018 7:28 PM Full Code 02/20/2018 10:08 AM 02/20/2018 4:09 PM Latest Code Status on File Code Status Date Activated Date Inactivated Comments Full Code 11/01/2019 6:52 PM Full Code 11/01/2019 4:08 PM 11/01/2019 6:52 PM Full Code 10/31/2019 3:38 PM 11/01/2019 4:08 PM Full Code 03/14/2018 8:53 PM 03/17/2018 1:54 PM Documents on File Type Date Recorded 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 anation ACP-Advance Directive ACP-Power of Social Media Manager Latest Code Status on File Code Status Date Activated Date Inactivated Comments Full Code 11/01/2019 6:52 PM 11/04/2019 7:10 PM Documents on File Type Date Recorded 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 anation ACP-Advance Directive ACP-Power of Social Media Manager Latest Code Status on File Code Status Date Activated Date Inactivated Comments Full Code 11/01/2019 6:52 PM 11/04/2019 7:10 PM Full Code 11/01/2019 4:08 PM 11/01/2019 6:52 PM Full Code 10/31/2019 3:38 PM 11/01/2019 4:08 PM Full Code 03/14/2018 8:53 PM 03/17/2018 1:54 PM Full Code 03/13/2018 12:43 PM 03/14/2018 8:53 PM Advance Directive Response Recorded Date/ Time Advance Directives No October 30, 2 021 5:41pm Latest Code Status on File Code Status Date Activated Date Inactivated Comments Full Code 11/01/2019 6:52 PM 11/04/2019 7:10 PM Code Status History Code Status Date Activated Date Inactivated Comments Full Code 11/01/2019 4:08 PM 11/01/2019 6:52 PM Full Code 10/31/2019 3:38 PM 11/01/2019 4:08 PM Full Code 03/14/2018 8:53 PM 03/17/2018 1:54 PM Full Code 03/13/2018 12:43 PM 03/14/2018 8:53 PM Latest Code Status on File Code Status Date Activated Date Inactivated Comments Full Code 12/30/2022 12:41 PM Code Status History Code Status Date Activated Date Inactivated Comments Full Code 11/01/2019 6:52 PM 11/04/2019 7:10 PM Full Code 11/01/2019 4:08 PM 11/01/2019 6:52 PM Full Code 10/31/2019 3:38 PM 11/01/2019 4:08 PM Full Code 03/14/2018 8:53 PM 03/17/2018 1:54 PM Discharge Instructions * Instructions* Patrick Coulter, DO - 11/02/2019 Section: What to Expect at Home Your Recovery A section, or , is surgery to deliver your baby through a cut, called an incision, that the doctor makes in your lower belly and uterus. You may have some pain in your lower belly and need pain medicine for 1 to 2 weeks. You can expect some vaginal bleeding for several weeks. You will probably need about 6 weeks to fully recover. It is important to take it easy while the incision is healing. Avoid heavy lifting, strenuous activities, or exercises that strain the belly muscles while you are recovering. Ask a family member or friend for help with housework, cooking, and shopping. This care sheet gives you a general idea about how long it will take for you to recover. But each person recovers at a different pace. Follow the steps below to get better as quickly as possible. How can you care for yourself at home? Activity Rest when you feel tired. Getting enough sleep will help you recover. Try to walk each day. Start by walking a little more than you did the day before. Bit by bit, increase the amount you walk. Walking boosts blood flow and helps prevent pneumonia, constipation, and blood clots. Avoid strenuous activities, such as bicycle riding, jogging, weightlifting, and aerobic exercise, for 6 weeks or until your doctor says it is okay. Until your doctor says it is okay, do not lift anything heavier than your baby. Do not do sit-ups or other exercises that strain the belly muscles for 6 weeks or until your doctorsays it is okay. Hold a pillow over your incision when you cough or take deep breaths. This will support your belly and decrease your pain. You may shower as usual. Pat the incision dry when you are done. You will have some vaginal bleeding. Wear sanitary pads. Do not douche or use tampons until your doctor says it is okay. Ask your doctor when you can drive again. You will probably need to take at least 6 weeks off work. It depends on the type of work you do andhow you feel. Ask your doctor when it is okay for you to have sex. Diet You can eat your normal diet. If your stomach is upset, try bland, low-fat foods like plain rice, broiled chicken, toast, and yogurt. Drink plenty of fluids (unless your doctor tells you not to). You may notice that your bowel movements are not regular right after your surgery. This is common. Try to avoid constipation and straining with bowel movements. You may want to take a fiber supplement every day. If you have not had a bowel movement after a couple of days, ask your doctor about taking a mild laxative. If you are , limit alcohol. Alcohol can cause a lack of energy and other health problems for the baby when a woman drinks heavily. It can also get in the way of a mom's ability to feed her baby or to care for the child in other ways. There isn't a lot of research about exactly how much alcohol can harm a baby. Having no alcohol is the safest choice for your baby. If youchoose to have a drink now and then, have only one drink, and limit the number of occasions that you have a drink. Wait to breastfeed at least 2 hours after you have a drink to reduce the amount of alcohol the baby may get in the milk. Medicines Your doctor will tell you if and when you can restart your medicines. He or she will also give you instructions about taking any new medicines. If you take aspirin or some other blood thinner, ask your doctor if and when to start taking it again. Make sure that you understand exactly what your doctor wants you to do. Take pain medicines exactly as directed. ? If the doctor gave you a prescription medicine for pain, take it as prescribed. ? If you are not taking a prescription pain medicine, ask your doctor if you can take an pbag-miu-jemsowl medicine. If you think your pain medicine is making you sick to your stomach: ? Take your medicine after meals (unless your doctor has told you not to). ? Ask your doctor for a different pain medicine. If your doctor prescribed antibiotics, take them as directed. Do not stop taking them just because you feel better. You need to take the full course of antibiotics. Incision care If you have strips of tape on the incision, leave the tape on for a week or until it falls off. Wash the area daily with warm, soapy water, and pat it dry. Don't use hydrogen peroxide or alcohol,which can slow healing. You may cover the area with a gauze bandage if it weeps or rubs against clothing. Change the bandage every day. Keep the area clean and dry. Other instructions If you breastfeed your baby, you may be more comfortable while you are healing if you place the baby so that he or she is not resting on your belly. Try tucking your baby under your arm, with his or her body along the side you will be feeding on. Support your baby's upper body with your arm. With that hand you can control your baby's head to bring his or her mouth to your breast. This is sometimes called the football hold. Follow-up care is a brenner part of your treatment and safety. Be sure to make and go to all appointments, and call your doctor if you are having problems. It's also a good idea to know your test resultsand keep a list of the medicines you take. When should you call for help? Call 911 anytime you think you may need emergency care. For example, call if: You have thoughts of harming yourself, your baby, or another person. You passed out (lost consciousness). You have chest pain, are short of breath, or cough up blood. You have a seizure. Call your doctor now or seek immediate medical care if: You have pain that does not get better after you take pain medicine. You have severe vaginal bleeding. You are dizzy or lightheaded, or you feel like you may faint. You have new or worse pain in your belly or pelvis. You have loose stitches, or your incision comes open. You have symptoms of infection, such as: ? Increased pain, swelling, warmth, or redness. ? Red streaks leading from the incision. ? Pus draining from the incision. ? A fever. You have symptoms of a blood clot in your leg (called a deep vein thrombosis), such as: ? Pain in your calf, back of the knee, thigh, or groin. ? Redness and swelling in your leg or groin. You have signs of preeclampsia, such as: ? Sudden swelling of your face, hands, or feet. ? New vision problems (such as dimness, blurring, or seeing spots). ? A severe headache. Watch closely for changes in your health, and be sure to contact your doctor if: You do not get better as expected. Where can you learn more? Go to [email or web address] and sign in to your [employer] account. Enter M806 in the Search Health Information box to learn more about Section: What to Expect at Home. If you do not have an account, please click on the Sign Up Now link. Current as of: January 17, 2019 Content Version: 12.3 9195-0709 [employer]. Care instructions adapted under license by [employer]. If youhave questions about a medical condition or this instruction, always ask your healthcare professional. [employer] disclaims any warranty or liability for your use of this information. documented in this encounter* Instructions* Adonay Kearns, - 09/26/2020 POST-ENDOSCOPY INSTRUCTIONS 1. ACTIVITY No driving, operating machinery, or making important decisions for 24 hours. Resume normal activity after 24 hours. You may return to work after 24 hours. 2. DIET EGD: Resume your usual diet unless specified below. Diet Modification: Regularr 3. MEDICATIONS (Do not consume alcohol, tranquilizers, or sleeping medications for 24 hours unless advised by your physician) Resume your usual medications 4. PHYSICIAN FOLLOW-UP Please continue with your previously scheduled appointments See your primary care physician as planned. 6. NORMAL CHANGES YOU MAY EXPERIENCE AFTER ENDOSCOPY: EGD: Sore throat, some abdominal pain and cramping. 7. CALL YOUR PHYSICIAN IF YOU EXPERIENCE ANY OF THE FOLLOWING A. Passing blood rectally or vomiting blood (color may be red or black) B. Severe abdominal pain or tenderness (that is not relieved by passing air) C. Fever, chills, or excessive sweating D. Persistent nausea or vomiting E. Redness or swelling at the IV site If you have additional questions, PLEASE call your doctor or the [facility] at documented in this encounter History of Present Illness * Dayana Michaud, - 11/04/2019 6:02 AM EDT POST OPERATIVE DAY # 3 Liliana Maloney is a 29 y.o. female This patient was seen and examined today. Her was complicated by: Patient Active Problem List Diagnosis Abnormal uterine bleeding Dysmenorrhea Hx of KEIRY I on colposcopy bx (2016) Insulin resistance complicating PCOS IVF Hypothyroidism Hx of gHTN (G1) Rh+/RI/GBSneg PLTCS 03/14/18 F Apg 8/9 Wt 8#9 Hx of PPD (G1) Hx of Abnormal pap smears Elevated BP without diagnosis of hypertension Short interval Hx of CS x1 (G1 2/2 NRFHT) 33 weeks gestation of cHTN (meds) 34 weeks gestation of CHTN w/ DIRK PreE w/ SFs (DILLARD) RLTCS 11/01/19 M Apg 8/9 Wt 6#1 Postoperative state Today she is doing well without any chief complaint. Her lochia is light. She denies chest pain, shortness of breath, headache, lightheadedness and blurred vision. She is breast feeding and she denies any signs or symptoms of mastitis. She is ambulating well. She is voiding without difficulty. She currently denies S/S of depression. Flatus present. Bowel movement present. She is tolerating solids. Vital Signs: Vitals: 11/03/19 1630 11/03/19199911/03/19 2358 11/04/19 0400 BP: 123/78 (!) 149/89 (!) 144/80 135/72 Pulse: 86 89 Resp: 16 Temp: 98.1 F (36.7 C) TempSrc: Oral SpO2: Weight: Height: Physical Exam: General: no apparent distress, alert and cooperative Neurologic: alert, oriented, normal speech, no focal findings or movement disorder noted Lungs: No increased work of breathing, good air exchange, clear to auscultation bilaterally, no crackles or wheezing Heart: regular rate and rhythm Abdomen: abdomen soft, non-distended, non-tender Fundus: non-tender, normal size, firm, below umbilicus Incision: prevena in place and functioning Extremities: no calf tenderness, non edematous Labs: Lab Results Component Value Date WBC 22.7 (H) 11/02/2019 HGB 10.0 (L) 11/02/2019 HCT 32.0 (L) 11/02/2019 MCV 87.0 11/02/2019 PLT 234 11/02/2019 Assessment/Plan: 1. Liliana Maloney is a POD # 3 s/p RLTCS - Doing well, VSS - male in NICU, circumcision desired - Encourage ambulation and use of incentive spirometer - s/p Ancef x 24 hours 2. Rh positive/Rubella immune 3. Breast feeding 4. CHTN on meds with DIRK with severe features - s/p mag x 24 hours - no s/s of PreE - preE labs WNL x 2 - continue labetalol 100mg BID 5. H/o PP depression - continue zoloft - denies s/s currently Counseling Completed: Secondary Smoke risks and Sudden Infant Syndrome were reviewed with recommendations. sleeping, back to sleep and avoidance of co-sleeping recommendations were reviewed. Signs and Symptoms of Post Depression were reviewed. The patient is to call if any occur. Signs and symptoms of Mastitis were reviewed. The patient is to call if any occur for follow up. Discharge instructions including pelvic rest, incision care, 15 lb weight restriction, no driving with pain medicine and office follow-up were reviewed with patient Providers Name: Dr. Kesha Michaud, Software Test Technician Resident 11/04/2019, 6:02 AM Associated attestation - Sade Alejandro MD - 11/04/2019 8:35 AM EDT Agree with Dr Michaud below. Pt seen and examined. Doing well this am. Undecided to d/c depending on the baby's condition. Ok to d/c with 1-2 wk f/u in the office is she desires later today. * Lula Sherman DO - 11/03/2019 6:00 AM EDT POST OPERATIVE DAY # 2 iLliana Maloney is a 29 y.o. female This patient was seen and examined today. RLTCS on 11/01/2019 Her was complicated by: Patient Active Problem List Diagnosis Abnormal uterine bleeding Dysmenorrhea Hx of KEIRY I on colposcopy bx (2016) Insulin resistance complicating PCOS IVF Hypothyroidism Hx of gHTN (G1) Rh+/RI/GBSneg PLTCS 03/14/18 F Apg 8/9 Wt 8#9 Hx of PPD (G1) Hx of Abnormal pap smears Elevated BP without diagnosis of hypertension Short interval Hx of CS x1 (G1 2/2 NRFHT) 33 weeks gestation of cHTN (meds) 34 weeks gestation of CHTN w/ DIRK PreE w/ SFs (DILLARD) RLTCS 11/01/19 M Apg 8/9 Wt 6#1 Postoperative state Today she is doing well without any chief complaint. Her lochia is light. She denies chest pain, shortness of breath, headache, lightheadedness, blurred vision and peripheral edema. She is breast feeding and she denies any signs or symptoms of mastitis. She is ambulating well. She is voiding without difficulty. She currently denies S/S of depression. Flatus present. Bowel movement absent. She is tolerating solids. Vital Signs: Vitals: 11/02/19 2000 11/03/19 0000 11/03/19 0400 11/03/19 0730 BP: (!) 149/88 138/75 135/72 134/87 Pulse: 76 79 72 85 Resp: 16 16 16 16 Temp: 98.1 F (36.7 C) 97.9 F (36.6 C) 98.1 F (36.7 C) 98.7 F (37.1 C) TempSrc: Oral Oral Oral SpO2: Weight: Height: Urine Input & Output last 24hrs: Intake/Output Summary (Last 24 hours) at 11/03/2019 1033 Last data filed at 11/02/2019 1843 Gross per 24 hour Intake 1523 ml Output 1550 ml Net -27 ml Physical Exam: General: no apparent distress, alert and cooperative Neurologic: alert, oriented, normal speech, no focal findings or movement disorder noted Lungs: No increased work of breathing, good air exchange, clear to auscultation bilaterally, no crackles or wheezing Heart: Regular rate and rhythm, normal S1 and S2, no S3 or S4, and no murmur noted Abdomen: abdomen soft, non-distended, non-tender, bowel sounds present Fundus: non-tender, firm, below umbilicus Incision: clean, dry and intact Extremities: no cyanosis, clubbing or edema present , no calf tenderness, non edematous Labs: Lab Results Component Value Date WBC 22.7 (H) 11/02/2019 HGB 10.0 (L) 11/02/2019 HCT 32.0 (L) 11/02/2019 MCV 87.0 11/02/2019 PLT 234 11/02/2019 Assessment/Plan: 1. Liliana Maloney is a POD # 2 s/p RLTCS - Doing well, VSS - male in NICUcircumcision desired - Encourage ambulation and use of incentive spirometer 2. Rh positive/Rubella immune 3. Breast feeding 4. CHTN on meds with DIRK with severe features - S/p Mag x 24hrs - Patient currently denies s/s preE, headache resolved - VSS, no elevated BP since delivery - Mag levels q12h - PreE labs wnl x2, P/C 0.19 on 10/31 - Continue labetalol 100mg BID - Hold methyldopa 500mg BID 5. Leukocytosis - WBC 17.0 > 13.3 during this admission - CBC pending for this AM - Patient afebrile - UA not suspicious for infection on admission 6. Hypothyroidism - TSH 1.81 (wnl) on admission - Stable on no meds - Close follow up 7. Hx PP Depression - Patient previously on zoloft after G1 - Denies s/s PP Depression at this time, Zoloft restarted 25 mg QD 8. Hx KEIRY I on colposcopy - Most recent pap 09/01/18 negative - Close outpatient follow up 9. Anemia - Hgb 11.2>10.6 during admission - CBC ordered for this AM 10. Obesity (BMI 49.3) Continue post-op care. Patient desires discharge Counseling Completed: Secondary Smoke risks and Sudden Infant Syndrome were reviewed with recommendations. sleeping, back to sleep and avoidance of co-sleeping recommendations were reviewed. Signs and Symptoms of Post Depression were reviewed. The patient is to call if any occur. Signs and symptoms of Mastitis were reviewed. The patient is to call if any occur for follow up. Discharge instructions including pelvic rest, incision care, 15 lb weight restriction, no driving with pain medicine and office follow-up were reviewed with patient Attending Physician: Dr. Javon Sherman DO Software Test Technician Resident 11/03/2019, 10:33 AM * Gardenia CookDO - 11/02/2019 10:10 AM EDT Resident Interval Post- Magnesium Sulfate Note Liliana Maloney is a 29 y.o. female POD# 1 s/p RLTCS on 11/01/19 The patient is resting comfortably. She denies headache, visual changes and abdominal pain in the right upper quadrant. She denies any shortness of breath or chest pain. She denies change in her extremities, regarding swelling. Continuous Medications: magnesium sulfate 2 g/hr (11/02/19 0448) lactated ringers 25 mL/hr at 11/01/19 2004 oxytocin 1 bernard-units/min (11/02/19 0119) Vitals: Vitals: 11/02/19 0500 11/02/19 0600 11/02/19 0801 11/02/19 0901 BP: 131/79 (!) 109/59 117/63 138/76 Pulse: 81 80 81 82 Resp: 16 21 16 16 Temp: 97.9 F (36.6 C) TempSrc: SpO2: 99% 95% 100% 97% Weight: Height: Physical Exam: Chest: clear to auscultation bilaterally Heart: RRR, no murmur Abdomen: soft, nontender, nondistended Extremities: DTR normal Right: 2/4 Left: 2/4 Clonus: absent Urine Output: 200ml/hr; Clear and Yellow urine Labs: Last Magnesium Level: Lab Results Component Value Date MG 4.8 11/02/2019 BMP: Recent Labs 10/31/19 1607 11/01/19 0704 NA 137 139 K 4.1 3.8 CL 106 107 CO2 19* 17* BUN 10 8 CREATININE 0.41* 0.36* GLUCOSE 151* 101* ASSESSMENT/PLAN Liliana Maloney is a 29 y.o. female POD# 1 s/p RLTCS with cHTN (meds) w/ DIRK w/ SFs (DILLARD) - Continue Magnesium Sulfate Treatment 2g/hr, off @ 1758 @ 11/02/19 - Mag levels q12hrs per provider, last Mag level 4.8, next 1800 - BPs improved and normotensive - Patient denies any s/s PreE - UOP adequate - Continue labetalol 100mg BID (started on 10/30) - Methyldopa 500mg BID discontinued at this time - PreE labs WNL x2, P/C 0.19 (10/31) Senior resident updated and agreeable to plan. Gardenia Cook DO Software Test Technician Resident 11/02/2019, 10:10 AM Associated attestation - Sade Alejandro MD - 11/03/2019 8:09 AM EDT Agree with Dr Cook's Note below. Pt seen and examined this am. Asx. BP wnl. Incision: dressing in place. Cont p-op care. * Gardenia Cook DO - 11/02/2019 8:07 AM EDT Obstetric/Gynecology Resident Interval Note Labs reviewed and Hgb stable at 10.0. Will start Iron supplementation on discharge. Will continue to monitor patient for s/s anemia. Lab Results Component Value Date WBC 22.7 (H) 11/02/2019 HGB 10.0 (L) 11/02/2019 HCT 32.0 (L) 11/02/2019 MCV 87.0 11/02/2019 PLT 234 11/02/2019 Senior resident updated and agreeable to plan. Gardenia Cook DO OBGYN Resident, PGY2 [facility] 11/02/2019, 8:07 AM * Anthony Foreman DO - 11/02/2019 3:38 AM EDT POST OPERATIVE DAY # 1 Resident Magensium Sulfate Note Liliana Maloney is a 29 y.o. female This patient was seen and examined today. RLTCS on 11/01/19 Her was complicated by: Patient Active Problem List Diagnosis Abnormal uterine bleeding Dysmenorrhea Hx of KEIRY I on colposcopy bx (2016) Insulin resistance complicating PCOS IVF Hypothyroidism Hx of gHTN (G1) Rh+/RI/GBSneg PLTCS 03/14/18 F Apg 8/9 Wt 8#9 Hx of PPD (G1) Hx of Abnormal pap smears Elevated BP without diagnosis of hypertension Short interval Hx of CS x1 (G1 2/2 NRFHT) 33 weeks gestation of cHTN (meds) 34 weeks gestation of CHTN w/ DIRK PreE w/ SFs (DILLARD) RLTCS 11/01/19 M Apg 8/9 Wt 6#1 Today she is doing well without any chief complaint. Her lochia is light. She denies chest pain, shortness of breath, headache, lightheadedness, blurred vision and peripheral edema. She is breast feeding and she denies any signs or symptoms of mastitis. She is not yet attempting to ambulate. She isvoiding without pillai in place. She currently denies S/S of depression. Flatus absent. Bowel movement absent. She is tolerating solids. Vital Signs: Vitals: 11/02/19 0100 11/02/19 0120 11/02/19 0200 11/02/19 0300 BP: 123/72 (!) 95/57 104/62 Pulse: 87 87 79 Resp: Temp: TempSrc: SpO2: 99% 95% Weight: Height: Urine Input & Output last 24hrs: Intake/Output Summary (Last 24 hours) at 11/02/2019 0338 Last data filed at 11/02/2019 0130 Gross per 24 hour Intake 2600 ml Output 1600 ml Net 1000 ml Physical Exam: General: no apparent distress, alert and cooperative Neurologic: alert, oriented, normal speech, no focal findings or movement disorder noted Lungs: No increased work of breathing, good air exchange, clear to auscultation bilaterally, no crackles or wheezing Heart: Regular rate and rhythm, normal S1 and S2, no S3 or S4, and no murmur noted Abdomen: abdomen soft, non-distended, non-tender, bowel sounds present Fundus: non-tender, firm, below umbilicus Incision: Prevena in place and functional Extremities: no calf tenderness, non edematous, normal DTR, 2/4 bilaterally, absent clonus Labs: Lab Results Component Value Date WBC 13.3 (H) 11/01/2019 HGB 10.6 (L) 11/01/2019 HCT 34.2 (L) 11/01/2019 MCV 85.5 11/01/2019 PLT 245 11/01/2019 Assessment/Plan: 1. Liliana Maloney is a POD # 1 s/p RLTCS - Doing well, VSS with no further elevated BPs - Male in NICU, circumcision desired - Encourage ambulation and use of incentive spirometer - D/C pillai catheter and saline lock IV on POD #1 - CBC ordered for this AM - Ancef x24 hours - Scopolamine patch in place - Toradol/Duramorph for pain, transition to Motrin and Percocet this AM 2. Rh positive/Rubella immune 3. Breast feeding - Denies s/s mastitis 4. cHTN on meds with DIRK with severe features - Continue Mag Sulfate @2g/hr until 1757 today - Patient currently denies s/s preE, headache resolved - VSS, no elevated BP since delivery - Mag levels q12h - PreE labs wnl x2, P/C 0.19 on 10/31 - Continue labetalol 100mg BID - Hold methyldopa 500mg BID 5. Leukocytosis - WBC 17.0 > 13.3 during this admission - CBC pending for this AM - Patient afebrile - UA not suspicious for infection on admission 6. Hypothyroidism - TSH 1.81 (wnl) on admission - Stable on no meds - Close follow up 7. Hx PP Depression - Patient previously on zoloft after G1 - Denies s/s PP Depression at this time, would like to restart zoloft - Zoloft 25mg daily ordered, will d/c with Rx 8. Short Interval - Encourage close outpatient follow up 9. Hx KEIRY I on colposcopy - Most recent pap 09/01/18 negative - Close outpatient follow up 10. Anemia - Hgb 11.2>10.6 during admission - CBC ordered for this AM 11. BMI 49.3 12. Continue post-op care. Counseling Completed: Secondary Smoke risks and Sudden Infant Syndrome were reviewed with recommendations. sleeping, back to sleep and avoidance of co-sleeping recommendations were reviewed. Signs and Symptoms of Post Depression were reviewed. The patient is to call if any occur. Signs and symptoms of Mastitis were reviewed. The patient is to call if any occur for follow up. Discharge instructions including pelvic rest, incision care, 15 lb weight restriction, no driving with pain medicine and office follow-up were reviewed with patient Attending Physician: Dr. Kellen Coulter, DO Software Test Technician Resident 11/02/2019, 3:38 AM Attending Physician Statement I have discussed the care of Liliana Maloney, including pertinent history and exam findings, with the resident. I have seen and examined the patient and the brenner elements of all parts of the encounter have been performed by me. I agree with the assessment, plan and orders as documented by the resident. (GC Modifier) Pt. Doing well. Currently on magnesium. She states she feels much better. No headache and BP controlled. Baby in NICU. Pt. Spirits are good. Will need started on zoloft with history of PP depression. Vitals: 11/02/19 1300 11/02/19 1400 11/02/19 1500 11/02/19 1600 BP: 118/67 (!) 108/59 126/66 131/72 Pulse: 73 68 81 82 Resp: 16 16 16 16 Temp: TempSrc: SpO2: 100% 99% 100% 99% Weight: Height: Recent Results (from the past 24 hour(s)) CBC auto differential Collection Time: 11/02/19 6:57 AM Result Value Ref Range WBC 22.7 (H) 3.5 - 11.3 k/uL RBC 3.68 (L) 3.95 - 5.11 m/uL Hemoglobin 10.0 (L) 11.9 - 15.1 g/dL Hematocrit 32.0 (L) 36.3 - 47.1 % MCV 87.0 82.6 - 102.9 fL MCH 27.2 25.2 - 33.5 pg MCHC 31.3 28.4 - 34.8 g/dL RDW 14.5 (H) 11.8 - 14.4 % Platelets 234 138 - 453 k/uL MPV 11.5 8.1 - 13.5 fL NRBC Automated 0.0 0.0 per 100 WBC Differential Type NOT REPORTED WBC Morphology NOT REPORTED RBC Morphology NOT REPORTED Platelet Estimate NOT REPORTED Immature Granulocytes 1 (H) 0 % Seg Neutrophils 87 (H) 36 - 66 % Lymphocytes 9 (L) 24 - 44 % Monocytes 3 1 - 7 % Eosinophils % 0 (L) 1 - 4 % Basophils 0 0 - 2 % Absolute Immature Granulocyte 0.23 0.00 - 0.30 k/uL Segs Absolute 19.75 (H) 1.8 - 7.7 k/uL Absolute Lymph # 2.04 1.0 - 4.8 k/uL Absolute [place] # 0.68 0.1 - 0.8 k/uL Absolute Eos # 0.00 0.0 - 0.4 k/uL Basophils Absolute 0.00 0.0 - 0.2 k/uL Morphology ANISOCYTOSIS PRESENT Magnesium Collection Time: 11/02/19 6:57 AM Result Value Ref Range Magnesium 4.8 (H) 1.6 - 2.6 mg/dL POD#1 RLTCS, male, in NICU DIRK w/ severe features - resolved DILLARD - BP normotensive - continue labetalol BID for now - mag x24 hours Rh+ Leukocytosis, repeat CBC in AM Hypoythroid- controlled, check 6-12 weeks PP Hx of PP depression, start zoloft Anemia, asymptomatic, VSS Continue current care. Norma Foreman DO * Patrick Coulter DO - 11/01/2019 8:31 PM EDT Resident Interval Magnesium Sulfate Note Liliana Maloney is a 29 y.o. female PPD# 0 s/p RLTCS The patient is resting comfortably. She denies headache, visual changes and abdominal pain in the right upper quadrant. Her previous headache has resolved. She denies any shortness of breath or chestpain. She denies change in her extremities, regarding swelling. Continuous Medications: magnesium sulfate 2 g/hr (11/01/19 1900) lactated ringers 25 mL/hr at 11/01/192003 oxytocin 1 bernard-units/min (11/01/191945) Vitals: Vitals: 11/01/19 1930 11/01/19194411/01/19199911/01/192009 BP: (!) 111/52 115/60 (!) 113/53 Pulse: 79 78 74 Resp: 17 11 20 Temp: TempSrc: SpO2: 95% 95% 96% 95% Weight: Height: Physical Exam: Chest: clear to auscultation bilaterally Heart: RRR no murmur Abdomen: soft, nontender, nondistended Extremities: DTR normal Right: 2/4 Left: 2/4 Clonus: absent Urine Output: 50/hr; Clear urine Labs: Last Magnesium Level: No results found for: MG BMP: Recent Labs 10/31/19 1607 11/01/19 0704 NA 137 139 K 4.1 3.8 CL 106 107 CO2 19* 17* BUN 10 8 CREATININE 0.41* 0.36* GLUCOSE 151* 101* ASSESSMENT/PLAN Liliana Maloney is a 29 y.o. female PPD# 0 s/p RLTCS - Continue Magnesium Sulfate Treatment @2g/hr until 175 on 11/01 - Mag levels q12h, Mag checks q4h - PreE labs wnl x2, P/C 0.19 on 11/01/19 - Continue labetalol 100mg BID, will hold methyldopa due to improved BP - BP stable since surgery, otherwise VSS - Patient denies s/s preE, her previous headache has resolved - Will continue to monitor carefully Patrick Coulter DO Software Test Technician Resident 11/01/2019, 8:31 PM * Lula Sherman DO - 11/01/2019 4:04 PM EDT Obstetric/Gynecology Resident Interval Note Patient seen and examined. Reports headache is pounding despite receiving Fioricet x 3 today. Shedenies vision changes. Denies RUQ pain or worsening edema. Headache is globally located and wrapping around bilaterally. BPs remain normotensive. Vitals: 11/01/19 0609 11/01/19 0754 11/01/19 1201 11/01/19 1418 BP: (!) 142/83 127/71 131/77 110/65 Pulse: 101 82 84 89 Resp: Temp: 97.9 F (36.6 C) 97.7 F (36.5 C) TempSrc: Oral Oral Weight: Height: Abdomen gravid, soft, obese, no RUQ or suprapubic pain DTRs / wnl, mild edema bilaterally Patient diagnosed with CHTN (on meds) wth DIRK w/ SFs (DILLARD). Orders placed including 4g Mag bolus and 2g/hr infusion ordered with plan for at 1700. orders placed. Patient and her updated. Anesthesia and NICU updated. Dr. Foreman in agreement with plan Lula Sherman DO FRONT ATTENDANT Resident, PGY4 [place], [place] 11/01/2019, 4:04 PM * Gardenia Cook DO - 11/01/2019 12:41 PM EDT Obstetric/Gynecology Resident Interval Note Pt continues to have headache that is now throbbing in nature and worsening in the last hour. Will give fioricet 2 tablets at this time. Will give celestone and have NICU consulted. BPs improved but headache is worsening. Pt denies any VC, SOB, CP at this time. Due to persistent cerebral disturbance with headache, pt now meets criteria for Chronic hypertension (meds) with superimposed preeclampsia with severe features. Will keep patient NPO at this time. No magnesium sulfate therapy per provider. Will monitor closely. Dr. Foreman updated and agreeable to plan. Gardenia Cook DO OBGYN Resident, PGY2 [facility] 11/01/2019, 12:41 PM * Gardenia Cook DO - 11/01/2019 7:36 AM EDT Obstetric/Gynecology Resident Interval Note Pt seen and examined. Pt states that she continues to have a headache not improving with fioricet x1. Provider updated and requesting CBC, CMP, P/C this morning. Dr. Foreman updated and agreeable to plan. Gardenia Cook DO OBGYN Resident, PGY2 [facility] 11/01/2019, 7:36 AM * Argentina Blum DO - 11/01/2019 5:49 AM EDT Resident Progress Note Liliana Maloney is a 29 y.o. female at 34w0d, Hospital Day: 2 Subjective: Patient has been seen and examined. Patient is sleeping comfortably in bed. She states that she slept most of the night. The RN came into the room around 0130 and she thought her headache had resolved however it quickly returned. She rates it a 3/10. Unchanged since admission. States that she usually does not get headaches. Denies vision changes, fevers, chills, N/V, RUQ pain, increase in swelling, CP, SOB, Dysuria. The patient reports movement is present, denies contractions, denies loss of fluid, denies vaginal bleeding. Objective: Vitals: Vitals: 10/31/19 2226 11/01/19 0121 11/01/19 0427 11/01/19 0428 BP: (!) 148/89 134/70 130/78 Pulse: 94 90 95 Resp: 18 16 16 Temp: 97.9 F (36.6 C) TempSrc: Oral Weight: Height: Heart Monitor: Baseline Heart Rate 125, moderate variability, present accelerations, one variable decelerations 1149-1228: artifact noted appears heart tones 65-70bpm intermittently picked up however RN in Room and audibly heard movement with notation on monitor; heart tones before and after category 1 reactive; most likely artifact [place]: contractions, rare Physical Exam: General appearance: no apparent distress, alert and cooperative Neurologic: alert, oriented, normal speech, no focal findings or movement disorder noted Lungs: No increased work of breathing, good air exchange, clear to auscultation bilaterally, no crackles or wheezing Heart: regular rate and rhythm Abdomen: soft, gravid, non-tender, no right upper quadrant tenderness, no CVA tenderness, uterus non-tender, no signs of abruption and no signs of chorioamnionitis Extremities: no calf tenderness, non edematous, DTR: 1/4 LE bilaterally; negative clonus Assessment/Plan: Liliana Maloney is a 29 y.o. female at 34w0d cHTN with elevated BP and headache - Patient with persistent headache since admission - Preeclampsia labs WNL x 1, P/C ratio 0.17 - Continue Methyldopa 500mg BID - S/P Fioricet and Benadryl/Reglan - Started Labetalol 100mg BID on admission - BP 130-150's/80-90's - Denies other s/s of preeclampsia - Will continue to monitor BP and DILLARD closely today as patient may be developing cHTN w/ DIRK w/SF due to persistent headache - CBC, CMP pending in AM - FHT: Category 1 reactive for majority of strip beside one variable - TOCO: rare H/O C/S x 1 - Declining TOLAC Hypothyroidism - TSH 1.81 on admission - Not on meds IVF H/O gHTN (G1) H/O PPD (G1) Short Interval Patient Active Problem List Diagnosis Date Noted 33 weeks gestation of 10/31/2019 cHTN (meds) 10/31/2019 Overview Note: Was previously on Methyldopa 500 BID Hx of PPD (G1) 08/25/2019 Overview Note: Was on zoloft 50mg daily Hx of Abnormal pap smears 08/25/2019 Overview Note: 04/15/16: Pap smear with ASCUS +HR HPV 12/24/16: Pap smear with ASCUS with negative HPV 08/30/17: Pap smear with ASCUS with negative HPV 09/01/18: Pap smear negative with negative HPV Elevated BP without diagnosis of hypertension 08/25/2019 Overview Note: 08/02/19: 150/90 05/16/19: 142/80 05/10/19: 158/100 04/25/18: 130/90 Started on methyldopa 05/10/2019 08/25/19: Currently on methyldopa 500mg BID Short interval 08/25/2019 Hx of CS x1 (G1 2/2 NRFHT) 08/25/2019 PLTCS 03/14/18 F Apg 8/9 Wt 8#9 03/15/2018 Overview Note: Due to intolerance (late decelerations) Rh+/RI/GBSneg 03/09/2018 Hypothyroidism 02/20/2018 Overview Note: 05/11/19: TSH: 1.06 08/25/19: Currently on synthroid 75mcg daily Hx of gHTN (G1) 02/20/2018 Overview Note: Patient met criteria for gHTN on 02/20. PreE labs wnl. P/C 0.24. Discharged home with labetalol 100mgBID. precautions given. Patient will be scheduled for testing. Pt was induced for gHTN. Insulin resistance complicating 08/30/2017 PCOS 08/30/2017 IVF 08/30/2017 Hx of KEIRY I on colposcopy bx (2016) 06/30/2016 Overview Note: Due to ASCUS + with +HRHPV in 2015 Normal pap smear 08/2018 Dysmenorrhea 04/17/2015 Abnormal uterine bleeding 02/13/2015 Will discuss with attending. Argentina Blum DO Software Test Technician Resident [facility], [facility] 11/01/2019, 5:49 AM * Argentina Blum DO - 10/31/2019 9:30 PM EDT Discussed with Dr. Foreman plan of care Patient seen. States that her headache has not improved with fioricet. Denies vision changes, fevers, chills, N/V, RUQ pain, increase in swelling, CP, SOB, Dysuria. +FM, denies contractions, leaking of fluid or vaginal bleeding. Vitals: 10/31/19 1901 10/31/19201410/31/19 2105 10/31/19 2226 BP: (!) 152/82 (!) 147/87 (!) 146/81 (!) 148/89 Pulse: 84 89 90 94 Resp: 18 18 Temp: 97.9 F (36.6 C) TempSrc: Oral Weight: Height: Plan: Will try reglan/Benadryl/tylenol for headache Preeclampsia labs WNL x 1; P/C 0.17 Continue Methyldopa 500mg BID Started Labetalol 100mg BID (first dose at 1634) S/P Fioricet Repeat CBC, CMP in AM Will reevaluate Discussed with Dr. Foreman; no indication at this time for diagnosis of cHTN w/DIRK w/SF; however will continue to monitor closely Argentina Blum PGY4 [facility] Resident documented in this encounter Summary Purpose Family History No Family History Records FoundNo Family History Records FoundNo Family History Records FoundNo Family History Records FoundNo Family History Records FoundNo Family History Records FoundNo Family History Records FoundNo Family History Records FoundNo Family History Records FoundNo Family History Records Found Chief Complaint and Reason for Visit Chief Complaint Radiculopathy Reason for Referral Specialty Diagnoses / Procedures Referred By Bret guzman Referred To Contact Diagnoses SARA (obstructive sleep apnea) Procedures Home sleep study Rhonda Rodney MD [address] [address] [address] [place] [address] Referral ID Status Reason Start Date Expiration Date V isits Requested Visits Authorized [id number] Pending Review 11/01/2023 10/31/2024 1 1 Additional Source Comments Reason for Visit (unrecogniz ed section and content) Reason Comments Other elevated BP Status Reason Specialty Diagnoses / Procedures Referre d By Contact Referred To Contact Diagnoses 33 weeks gestation of 34 weeks gestation of Anthony Foreman DO [address] [facility] [address] [place] [address] [facility] Status Reason Specialty Diagnoses / Procedures Re ferred By Contact Referred To Contact Diagnoses GERD (gastroesophageal reflux disease) Obesity GERD OBESITY Procedures MO EGD TRANSORAL BIOPSY SINGLE/MULTIPLE EGD ESOPHAGOGASTRODUODENOSCOPY Adonay Kearns, [address] [facility] [address] [place] [address] [facility] Reason Comments Abdominal Pain Lower abd/pelvic gabby n, states it feels like my butthole is going to fall out. , onset last night Pharyngitis With chills, nausea Specialty Diagnoses / Procedures Referred By Bret guzman Referred To Contact Diagnoses Pelvic pain in female Irregular menstruation, unspecified Abnormal findings on diagnostic imaging of other abdominal regions, including retroperitoneum Pelvic pain in female [R10.2] S/P endometrial ablation [Z98.890] Abnormal uterine bleeding [N93.9] Procedures MO LAPAROSCOPY W TOTAL HYSTERECTOMY UTERUS 250 GM/< MO CYSTOURETHROSCOPY MO LAPS TOTAL HYSTERECT 250 GM/< W/RMVL TUBE/OVARY MO CHANGE CYSTOSTOMY TUBE SIMPLE ROBOTIC XI ASSISTED LAPAROSCOPIC HYSTERECTOMY W/ BILATERAL SALPINGECTOMY POSSIBLE LEFT OOPHORECTOMY CYSTOSCOPY Anthony Foreman DO [address] [facility] [address] [place] [address] [facility] [id number] [place] [address] Referral ID Status Reason Start Date Expiration Date Visits Re quested Visits Authorized [id number] 1 1 Specialty Diagnoses / Procedures Referred By Contac t Referred To Contact Diagnoses SARA (obstructive sleep apnea) Procedures Home sleep study Rhonda Rodney MD [address] [facility], [facility] [address] [facility] 11/20/23 [place] [address] Referral ID Status Reason Start Date Expiration Date Visits Re quested Visits Authorized [id number] Closed 11/01/2023 10/31/2024 1 1 Specialty Diagnoses / Procedures Referred By Contac t Referred To Contact Diagnoses Obstructive sleep apnea Procedures Home sleep study Richelle Mayo MD [address] [facility] [place] [address] [place] [address] Referral ID Status Reason Start Date Expiration Date Visits Re quested Visits Authorized [id number] Closed 01/04/2024 01/03/2025 1 1 Reason Comments New Patient Sleep Apnea Sleep Study at [facility] and 2020 Specialty Diagnoses / Procedures [facility] To Contact Pulmonary Medicine Diagnoses SARA (obstructive sleep apnea) Rajesh Bingham MD [address] [facility] [address] [address], [place] [address] Nazia Cervantes DO [address] [place] [address] Referral ID Status Reason Start Date Expiration Date Visits Requested Visits Authorized [id number] Pending Review Specialty Services Required 3 06/06/2024 1 1 Reason Onset Date Comments Sleep Lab 11/03/2023 HST Ordered Prescriptions (unrec ognized section and content) Prescription Sig Dispensed Refills Start Date End Da te pantoprazole (PROTONIX) 20 MG tablet Take 1 tablet by mouth daily 30 tablet 3 09/26/2020 Prescription Sig Dispensed Refills Start Date End Da te acetaminophen (TYLENOL) 500 MG tablet Take 1 tablet by mouth 4 times daily as needed for Pain 40 tablet 1 08/17/2021 ibuprofen (ADVIL;MOTRIN) 600 MG tablet Take 1 tablet by mouth every 6 hours as needed for Pain 40 tablet 1 08/17/2021 Prescription Sig Dispensed Refills Start Date End Da te ondansetron (ZOFRAN-ODT) 4 MG disintegrating tablet Take 1 tablet by mouth every 8 hours as needed for Nausea or Vomiting 90 tablet 0 12/30/2022 01/29/2023 simethicone (MYLICON) 80 MG chewable tablet Take 1 tablet by mouth 4 times daily as needed for Flatulence 120 tablet 0 12/30/2022 01/29/2023 senna (SENOKOT) 8.6 MG tablet Take 1 tablet by mouth 2 times daily 60 tablet 3 12/30/2022 01/29/2023 oxyCODONE (ROXICODONE) 5 MG immediate release tabletIndications:Post- operative state Take 1 tablet by mouth every 6 hours as needed for Pain for up to 7 days. Intended supply: 7 days. Take lowest dose possible to manage pain Max Daily Amount: 20 mg 20 tablet 0 12/30/2022 01/06/2023 acetaminophen (TYLENOL) 500 MG tablet Take 2 tablets by mouth in the morning and 2 tablets at noon and 2 tablets in the evening. 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 Relationship Specialty Start Date End Date Gurinder Cortes DO PCP - General Family Medicine 05/11/19 Maintenance Mechanic Helper Relationship Specialty Start Date End Date Gurinder Cortes DO PCP - General Family Medicine 05/11/19 Maintenance Mechanic Helper Relationship Specialty Start Date End Date Rajesh Bingham ZANE [address] [place] [address] PCP - General Family Medicine 10/13/22 Team Status: Active Member Role Status Dates Gurinder Cortes , Primary Care Provider Active Team Status: Inactive Member Role Status Dates Gurinder Cortes , Primary Care Provider Active Jose Matute MD Attending Provider Active 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 Mechanic Helper Relationship Specialty Start Date End Date Rajesh Bingham ND [address] [place] [address] PCP - General Family Medicine 10/13/22 Maintenance Mechanic Helper Relationship Specialty Start Date End Date Rajesh Bingham ND [address] [place] [address] PCP - General Family Medicine 10/13/22 Maintenance Mechanic Helper Relationship Specialty Start Date End Date Rajesh Bingham MD [address] [place] [address] PCP - General Internal Medicine 06/16/22 Maintenance Mechanic Helper Relationship Specialty Start Date End Date Rajesh Bingham MD [address], [place] [address] PCP - General Internal Medicine 06/16/22 Maintenance Mechanic Helper Relationship Specialty Start Date End Date Rajesh Bingham MD [address] [place] [address] PCP - General Internal Medicine 06/16/22 Maintenance Mechanic Helper Relationship Specialty Start Date End Date Rajesh Bingham MD [address] [place] [address] PCP - General Internal Medicine 06/16/22 Maintenance Mechanic Helper Relationship Specialty Start Date End Date Rajesh Bingham MD [address] [place] [address] PCP - General Internal Medicine 06/16/22 Maintenance Mechanic Helper Relationship Specialty Start Date End Date Rajesh Bingham MD [address] [place] [address] PCP - General Internal Medicine 06/16/22 INFORMATION SOURCE (unrecogn ized section and content) DATE CREATED AUTHOR 08/08/2021 [facility] dical Specialist DATE CREATED AUTHOR AUTHOR'S ORGANIZ ATION 11/01/2021 [facility] DATE CREATED AUTHOR AUTHOR'S ORGANIZ ATION 11/24/2021 [facility] DATE CREATED AUTHOR AUTHOR'S ORGANIZ ATION 03/26/2022 [facility] DATE CREATED AUTHOR AUTHOR'S ORGANIZ ATION 10/13/2022 [facility] DATE CREATED AUTHOR AUTHOR'S ORGANIZ ATION 01/01/2023 [facility] DATE CREATED AUTHOR AUTHOR'S ORGANIZ ATION 01/05/2023 [facility] DATE CREATED AUTHOR AUTHOR'S ORGANIZ ATION 02/18/2023 [facility] DATE CREATED AUTHOR AUTHOR'S ORGANIZ ATION 11/02/2023 [facility] DATE CREATED AUTHOR AUTHOR'S ORGANIZ ATION 09/11/2024 [facility] Scheduled Active and Recently Administ ered Medications (unrecognized section and content) Medication Order 08/15/2021 08/16/2021 08/17/2021 scopolamine (TRANSDERM-SCOP) transdermal patch 1 patch 1 patch, TransDERmal, Administer over 72 Hours, EVERY 72 HOURS, First dose on 08/17/21 at 0845, For 1 dose, Remove in 72 hours, Pre-op (day of surgery) 0829 (Patch Applied - Provider: Pat Alcantara RN - Comment: lt ear) sodium chloride flush 0.9 % injection 5-40 mL 5-40 mL, IntraVENous, EVERY 12 HOURS SCHEDULED (2 times per day), First dose on Tue08/17/21 at 0900, For Line Patency: Peripheral IV = 5 mL; Midline or Central Line = 10 mL/lumen. If following IV push medication, administer flush at same rate as the IV push. Flush volume is determined by type of infusion therapy being given. For non-viscous solutions use: Peripheral IV = 5 mL Midline or Central Line = 10 mL/lumen For viscous solutions (i.e. blood components, parenteral nutrition, contrast media, or after obtaining blood sample) use: Peripheral IV = 10 mL Midline or Central Line = 20 mL/lumen, Pre-op (day of surgery) 0900 (Due)2100 (Due) Continuous Medication Order 08/15/2021 08/16/2021 08/17/2021 lactated ringers infusion IntraVENous, at 125 mL/hr, CONTINUOUS, Starting on Tue08/17/21 at 0730, Pre-op (day of surgery) 0734 (New Bag - Prov ider: Denise Morfin RN)0900 [facility] - Provider: Kaemron Becker APRN - CLERK SECRETARY) PRN Medication Order 08/15/2021 08/16/2021 08/17/2021 0.9 % sodium chloride infusion 25 mL, IntraVENous, at 100 mL/hr, PRN, If patient receiving piggyback infusions without ordered maintenance IV fluids or with frequent/long duration piggyback infusions, Starting on Tue08/17/21 at 0701, Administer at the same rate as the piggyback being infused., Pre-op (day of surgery) 0.9 % sodium chloride infusion 25 mL, IntraVENous, at 100 mL/hr, PRN, If patient receiving piggyback infusions without ordered maintenance IV fluids or with frequent/long duration piggyback infusions, Starting on Tue08/17/21 at 0825, Administer at the same rate as the piggyback being infused., Pre-op (day of surgery) diphenhydrAMINE (BENADRYL) injection 12.5 mg 12.5 mg, IntraVENous, ONCE PRN, Itching, Starting on Tue08/17/21 at 0824, For 1 dose, PACU only fentaNYL (SUBLIMAZE) injection 25 mcg 25 mcg, IntraVENous, EVERY 5 MIN PRN, Pain Moderate (4-6), Starting on Tue08/17/21 at 0824, For 4 doses, Phase I - Initial therapy for moderate pain., PACU only fentaNYL (SUBLIMAZE) injection 50 mcg 50 mcg, IntraVENous, EVERY 5 MIN PRN, Pain Severe (7-10), Starting on Tue08/17/21 at 0824, For 4 doses, Phase I - Secondary therapy to be used after all initial severe pain medication doses have been administered., PACU only hydrALAZINE (APRESOLINE) injection 5 mg 5 mg, IntraVENous, EVERY 10 MIN PRN, High Blood Pressure, Starting on Tue08/17/21 at 0824, PRN for SBP > 160 for 2 consecutive measurements, and if one of the following conditions is met: 1) If IV labetolol is ineffective. 2) If HR is under 60. 3) If patient has heart block, COPD or asthma. If both labetalol and hydralazine ineffective, notify anesthesiologist., PACU only HYDROcodone-acetaminophen (NORCO) 5-325 MG per tablet 1 tablet(Linked Group 1) 1 tablet, Oral, PRN, Pain Moderate (4-6), Starting on Tue08/17/21 at 0824, For 1 dose, PHASE II, PACU only HYDROcodone-acetaminophen (NORCO) 5-325 MG per tablet 2 tablet(Linked Group 1) 2 tablet, Oral, PRN, Pain Severe (7-10), Starting on Tue08/17/21 at 0824, For 1 dose, PHASE II, PACU only HYDROmorphone (DILAUDID) injection 0.5 mg 0.5 mg, IntraVENous, EVERY 5 MIN PRN, Pain Severe (7-10), Starting on Tue08/17/21 at 0824, For 4 doses, Phase I - Initial therapy for severe pain., PACU only 0956 (Given - Provid er: Diane Rowe RN)1009 (Given - Provider: Diane Rowe RN) labetalol (NORMODYNE;TRANDATE) injection 5 mg 5 mg, IntraVENous, EVERY 10 MIN PRN, High Blood Pressure, Starting on Tue08/17/21 at 0824, PRN for SBP >160 for 2 consecutive measurements, if HR is 60 or greater. If beta shalom is contraindicated (HR less than 60, heart block, COPD or asthma) use hydralazine IV order., PACU only lidocaine PF 1 % injection 1 mL 1 mL, IntraDERmal, ONCE PRN, IV start, Starting on Tue08/17/21 at 0701, For 1 dose, Pre-op (day of surgery) meperidine (DEMEROL) injection 12.5 mg 12.5 mg, IntraVENous, EVERY 5 MIN PRN, Shivering, , Starting on Tue08/17/21 at 0824, May give every 5 minutes to max of 50mg., PACU only metoclopramide (REGLAN) injection 10 mg 10 mg, IntraVENous, ONCE PRN, Nausea, Starting on Tue08/17/21 at 0824, For 1 dose, Secondary antiemetic therapy., PACU only morphine (PF) injection 2 mg 2 mg, IntraVENous, EVERY 5 MIN PRN, Pain Moderate (4-6), Starting on Tue08/17/21 at 0824, For 5 doses, Phase I - Secondary therapy to be used after all initial moderate pain medication doses have been administered., PACU only ondansetron (ZOFRAN) injection 4 mg 4 mg, IntraVENous, ONCE PRN, Nausea, Starting on Tue08/17/21 at 0824, For 1 dose, Initial antiemetic therapy., PACU only sodium chloride flush 0.9 % injection 5-40 mL 5-40 mL, IntraVENous, PRN, Line Care, Starting on Tue08/17/21 at 0701, For Line Patency: Peripheral IV = 5 mL; Midline or Central Line = 10 mL/lumen. If following IV push medication, administer flush at same rate as the IV push. Flush volume is determined by type of infusion therapy being given. For non-viscous solutions use: Peripheral IV = 5 mL Midline or Central Line = 10 mL/lumen For viscous solutions (i.e. blood components, parenteral nutrition, contrast media, or after obtaining blood sample) use: Peripheral IV = 10 mL Midline or Central Line = 20 mL/lumen, Pre-op (day of surgery) sodium chloride flush 0.9 % injection 5-40 mL 5-40 mL, IntraVENous, PRN, Line Care, Starting on Tue08/17/21 at 0825, For Line Patency: Peripheral IV = 5 mL; Midline or Central Line = 10 mL/lumen. If following IV push medication, administer flush at same rate as the IV push. Flush volume is determined by type of infusion therapy being given. For non-viscous solutions use: Peripheral IV = 5 mL Midline or Central Line = 10 mL/lumen For viscous solutions (i.e. blood components, parenteral nutrition, contrast media, or after obtaining blood sample) use: Peripheral IV = 10 mL Midline or Central Line = 20 mL/lumen, Pre-op (day of surgery) Linked Groups Order Group 1: HYDROcodone-acetaminophen (NORCO) 5-325 MG per tablet 1 tabletJump to med 1 tablet, Oral, PRN, Pain Moderate (4-6), Starting on Tue08/17/21 at 0824, For 1 dose
PHASE II
PACU only Or HYDROcodone-acetaminophen (NORCO) 5-325 MG per tablet 2 tabletJump to med 2 tablet, Oral, PRN, Pain Severe (7-10), Starting on Tue08/17/21 at 0824, For 1 dose
PHASE II
PACU only Scheduled Medication Order 10/11/2022 10/12/2022 10/13/2022 ketorolac (TORADOL) injection 30 mg (COMPLETED) 30 mg, IntraVENous, ONCE, 1 dose, On Tue10/13/22 at 0045, Do not administer for more than 5 days. 0044 (Given - Provid er: Amparo May RN) PRN Medication Order 10/11/2022 10/12/2022 10/13/2022 iopamidol (ISOVUE-370) 76 % injection 75 mL (COMPLETED) 75 mL, IntraVENous, IMG ONCE PRN, 1 dose, Starting on Tue10/13/22 at 0114, Until Tue10/13/22 at 0117, Other 0117 (Given - Provid er: Gardenia Thompson) Scheduled Medication Order 12/28/2022 12/29/2022 12/30/2022 acetaminophen (TYLENOL) tablet 1,000 mg (COMPLETED) 1,000 mg, Oral, ONCE, 1 dose, On Blessing 12/30/22 at 0600, Administer 60 minutes prior to surgery., Pre-op (day of surgery) 0610 (Given - Provid er: Marilee Oneil RN) acetaminophen (TYLENOL) tablet 1,000 mg 1,000 mg, Oral, EVERY 6 HOURS, First dose on Blessing 12/30/22 at 1800, Until Discontinued, Maximum dose of acetaminophen is 4000 mg from all sources in 24 hours. 1800 (Due) ceFAZolin (ANCEF) 2000 mg in 0.9% sodium chloride 50 mL IVPB (COMPLETED) 2,000 mg, IntraVENous, ONCE, 1 dose, On Blessing 12/30/22 at 0745, Antimicrobial Indications: Surgical Prophylaxis 0807 (Given - Provid er: Anny Morales RN) ceFAZolin (ANCEF) 2000 mg in 0.9% sodium chloride 50 mL IVPB (COMPLETED) 2,000 mg, IntraVENous, ONCE, 1 dose, On Blessing 12/30/22 at 1600, Antimicrobial Indications: Surgical Prophylaxis 1610 (New Bag - Prov ider: Shaggy Fernandes RN)1717 (Stopped - Provider: Shaggy Fernandes RN) gabapentin (NEURONTIN) capsule 300 mg (COMPLETED) 300 mg, Oral, ONCE, 1 dose, On Blessing 12/30/22 at 0600, Administer 60 minutes prior to surgery., Pre-op (day of surgery) 0610 (Given - Provid er: Marilee Oneil RN) ketorolac (TORADOL) injection 30 mg 30 mg, IntraVENous, EVERY 6 HOURS, 3 doses, First dose on Tue12/30/22 at 1600, Last dose on Tue12/31/22 at 0400, Do not administer for more than 5 days. 1614 (Given - Provid er: Shaggy Fernandes RN)2200 (Due) phenazopyridine (PYRIDIUM) tablet 200 mg (COMPLETED) 200 mg, Oral, ONCE, 1 dose, On Blessing 12/30/22 at 0745, Take with food. May cause discoloration of urine. 0748 (Given - Provid er: Marilee Oneil RN) scopolamine (TRANSDERM-SCOP) transdermal patch 1 patch 1 patch, TransDERmal, Administer over 72 Hours, EVERY 72 HOURS, First dose on Blessing 12/30/22 at 0715, For 1 dose, Remove in 72 hours, Pre-op (day of surgery) 0653 (Patch Applied - Provider: Marilee Oneil RN - Comment: left ear) sodium chloride flush 0.9 % injection 5-40 mL 5-40 mL, IntraVENous, EVERY 12 HOURS SCHEDULED (2 times per day), First dose on Blessing 12/30/22 at 2100, Until Discontinued, For Line Patency: Peripheral IV = 5 mL; Midline or Central Line = 10 mL/lumen. If following IV push medication, administer flush at same rate as the IV push. Flush volume is determined by type of infusion therapy being given. For non-viscous solutions use: Peripheral IV = 5 mL Midline or Central Line = 10 mL/lumen For viscous solutions (i.e. blood components, parenteral nutrition, contrast media, or after obtaining blood sample) use: Peripheral IV = 10 mL Midline or Central Line = 20 mL/lumen, Post-op 2100 (Due) Continuous Medication Order 12/28/2022 12/29/2022 12/30/2022 0.9 % sodium chloride infusion IntraVENous, at 125 mL/hr, CONTINUOUS, Starting on Blessing 12/30/22 at 1300, Post-op 1248 (New Bag - Prov ider: Do Lester RN)1717 (Stopped - Provider: Shaggy Fernandes RN) lactated ringers IV soln infusion IntraVENous, at 125 mL/hr, CONTINUOUS, Starting on Blessing 12/30/22 at 0600, Pre-op (day of surgery) 0628 (New Bag - Prov ider: Marilee Oneil RN)0630 (New Bag - Provider: Marilee Oneil RN)0751 (Paused - Provider: Anny Morales RN - Comment: Switch to gravity)0752 (Restarted - Provider: Anny Morales RN)0854 (Anesthesia Volume Adjustment - Provider: Anny Morales RN)0937 (Anesthesia Volume Adjustment - Provider: Anny Morales, RY)1010 (Anesthesia Volume Adjustment - Provider: Anny Morales, RN)1300 (Stopped - Provider: Shaggy Fernandes RN - Comment: not present) PRN Medication Order 12/28/2022 12/29/2022 12/30/2022 0.9 % sodium chloride infusion IntraVENous, at 5-250 mL/hr, PRN, if patient receiving piggyback infusions and maintenance fluids are not ordered OR KVO fluids to protect IV site / prevent frequent line interruptions/ long duration, Starting on Blessing 12/30/22 at 1241, For piggyback infusion, administer at same rate as piggyback for a total of 25 mL. Enter 25 mL into dose field and piggyback rate into rate field of order. If piggyback is infusing at a rate less than 100 mL/hr, enter 25 mL into dose field and 100 mL/hr into rate field of order. For KVO fluids, enter rate of 20 mL/hr or less into rate field of order., Post-op bupivacaine-EPINEPHrine PF (MARCAINE-w/EPINEPHrine) 0.25% -[id number] injection (CANCELED) PRN, Starting on Blessing 12/30/22 at 1031, Until Blessing 12/30/22 at 1055, Intra-op 1031 (Given - Provid er: Anthony Foreman, DO - Comment: OP SITES) HYDROmorphone (DILAUDID) injection 0.5 mg(Linked Group 1) 0.5 mg, IntraVENous, EVERY 3 HOURS PRN, Starting on Blessing 12/30/22 at 1241, Until Discontinued, Pain Moderate (4-6), If oral and IV narcotics ordered, use oral first and only use IV if oral is ineffective or cannot take oral. Do Not give oral and IV within 1 hour of each other unless specifically ordered., Post-op 1248 (Given - Provid er: Do Lester RN) HYDROmorphone (DILAUDID) injection 1 mg(Linked Group 1) 1 mg, IntraVENous, EVERY 3 HOURS PRN, Starting on Blessing 12/30/22 at 1241, Until Discontinued, Pain Severe (7-10), If oral and IV narcotics ordered, use oral first and only use IV if oral is ineffective or cannot take oral. Do Not give oral and IV within 1 hour of each other unless specifically ordered., Post-op 1248 (See Alternativ e - Provider: Do Lester RN) lidocaine PF 1 % injection 1 mL (COMPLETED) 1 mL, IntraDERmal, ONCE PRN, 1 dose, Starting on Blessing 12/30/22 at 0542, Until Blessing 12/30/22 at 0630, IV start, Pre-op (day of surgery) 0630 (Given - Provid er: Marilee Oneil RN - Comment: right hand) ondansetron (ZOFRAN) injection 4 mg(Linked Group 2) 4 mg, IntraVENous, EVERY 6 HOURS PRN, Starting on Blessing 12/30/22 at 1241, Until Discontinued, Nausea, Vomiting, Administer if oral route cannot be used., Post-op 1446 (See Alternativ e - Provider: Shaggy Fernandes RN) ondansetron (ZOFRAN-ODT) disintegrating tablet 4 mg(Linked Group 2) 4 mg, Oral, EVERY 8 HOURS PRN, Starting on Blessing 12/30/22 at 1241, Until Discontinued, Nausea, Vomiting, Post-op 1446 (Given - Provid er: Shaggy Fernandes RN) oxyCODONE (ROXICODONE) immediate release tablet 5 mg(Linked Group 3) 5 mg, Oral, EVERY 4 HOURS PRN, Starting on Blessing 12/30/22 at 1241, Until Discontinued, Pain Moderate (4-6) oxyCODONE HCl (OXY-IR) immediate release tablet 10 mg(Linked Group 3) 10 mg, Oral, EVERY 4 HOURS PRN, Starting on Blessing 5 at 1241, Until Discontinued, Pain Severe (7-10) sennosides-docusate sodium (SENOKOT-S) 8.6-50 MG tablet 2 tablet 2 tablet, Oral, DAILY PRN, Starting on Blessing 12/30/22 at 1240, Until Discontinued, Constipation simethicone (MYLICON) chewable tablet 80 mg 80 mg, Oral, EVERY 6 HOURS PRN, Starting on Blessing 12/30/22 at 1240, Until Discontinued, Cramping sodium chloride flush 0.9 % injection 5-40 mL 5-40 mL, IntraVENous, PRN, Starting on Blessing 12/30/22 at 1241, Until Discontinued, Line Care, After every IV line use, For Line Patency: Peripheral IV = 5 mL; Midline or Central Line = 10 mL/lumen. If following IV push medication, administer flush at same rate as the IV push. Flush volume is determined by type of infusion therapy being given. For non-viscous solutions use: Peripheral IV = 5 mL Midline or Central Line = 10 mL/lumen For viscous solutions (i.e. blood components, parenteral nutrition, contrast media, or after obtaining blood sample) use: Peripheral IV = 10 mL Midline or Central Line = 20 mL/lumen, Post-op 1614 (Given - Provid er: Shaggy Fernandes RN) Linked Groups Order Group 1: HYDROmorphone (DILAUDID) injection 0.5 mgJump to med 0.5 mg, IntraVENous, EVERY 3 HOURS PRN, Starting on Blessing 12/30/22 at 1241, Until Discontinued, Pain Moderate (4-6)
If oral and IV narcotics ordered, use oral first and only use IV if oral is ineffective or cannot take oral. Do Not give oral and IV within 1 hour of each other unless specifically ordered.
Post-op Or HYDROmorphone (DILAUDID) injection 1 mgJump to med 1 mg, IntraVENous, EVERY 3 HOURS PRN, Starting on Blessing 12/30/22 at 1241, Until Discontinued, Pain Severe (7-10)
If oral and IV narcotics ordered, use oral first and only use IV if oral is ineffective or cannot take oral. Do Not give oral and IV within 1 hour of each other unless specifically ordered.
Post-op Group 2: ondansetron (ZOFRAN-ODT) disintegrating tablet 4 mgJump to med 4 mg, Oral, EVERY 8 HOURS PRN, Starting on Blessing 12/30/22 at 1241, Until Discontinued, Nausea, Vomiting, Post-op Or ondansetron (ZOFRAN) injection 4 mgJump to med 4 mg, IntraVENous, EVERY 6 HOURS PRN, Starting on Blessing 12/30/22 at 1241, Until Discontinued, Nausea, Vomiting
Administer if oral route cannot be used.
Post-op Group 3: oxyCODONE (ROXICODONE) immediate release tablet 5 mgJump to med 5 mg, Oral, EVERY 4 HOURS PRN, Starting on Blessing 12/30/22 at 1241, Until Discontinued, Pain Moderate (4-6) Or oxyCODONE HCl (OXY-IR) immediate release tablet 10 mgJump to med 10 mg, Oral, EVERY 4 HOURS PRN, Starting on Blessing 12/30/22 at 1241, Until Discontinued, Pain Severe (7-10) Goals (unrecognized section and content) Goals may be documented in a n alternate section FOR RECORDS PERTAINING TO PATIENTS WHO ARE OR HAVE BEEN ENROLLED IN A CHEMICAL DEPENDENCY/SUBSTANCEABUSE PROGRAM, SOME INFORMATION MAY BE OMITTED. This clinical summary was aggregated from multiple sources. Caution should be exercised in using it in the provision of clinical care. This summary normalizes information from multiple sources, and as a consequence, information in this document may materially change the coding, format and clinical context of patient data. In addition, data may be omitted in some cases. CLINICAL DECISIONS SHOULD BE BASED ON THE PRIMARY CLINICAL RECORDS. [facility] [employer] [facility]. provides no warranty or guarantee of the accuracy or completeness of information in this document.
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
[2024-10-18] MEDS: ACETAMINOPHEN 500 MG TABLET 1000 MG PO (18:36)
[2024-10-18] MEDS: TIZANIDINE HCL 4 MG TABLET PO (18:37)
[2024-10-18] MEDS: ONDANSETRON 4 MG RAPDIS TABLET SL (18:53)
[2024-10-18] MEDS: IBUPROFEN 600 MG TABLET PO (19:43)
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
== END 2024-10-18 19:48 | disposition home or self-care (01) ==
PROVIDERS: Emergency Provider Emergency Medicine; PCP Student in an Organized Health Care Education/Training Program
DX: S00.93XA Contusion of unspecified part of head, initial encounter (principal); S80.02XA Contusion of left knee, initial encounter; S80.212A Abrasion, left knee, initial encounter; S46.911A Strain of unspecified muscle, fascia and tendon at shoulder and upper arm level, right arm, initial encounter; V49.49XA Driver injured in collision with other motor vehicles in traffic accident, initial encounter; S00.511A Abrasion of lip, initial encounter
CPT/HCPCS: 70450; 72125; 73030; 73564; 99284; Q0162